=== PATIENT | male | born 1975 | race Caucasian/White ===

== ENCOUNTER 2021-07-01 01:13 | Emergency (ER) | payer OTHER, SELFPAY ==
[2021-07-01 01:27] VITALS: BP 173/100; PULSE 92; RESP 20; TEMP 35.9; O2SAT 97
--- NOTE | 2021-07-01 02:19 | ED_ITS ---
HPI - Skin/Abscess/Foreign Bdy General Chief complaint: Skin/Abscess/Foreign Body Stated complaint: right hand infected finger Time Seen by Provider: 07/01/21 02:09 Source: patient Mode of arrival: ambulatory Limitations: no limitations History of Present Illness complaint: abscess/boil Onset (ago): day(s) (4) Tetanus up to date: yes Location: R hand (index finger) Severity: moderate Quality: aching Pain Consistency: constant Relieving factors: none Exacerbating factors: palpation Context: other (had hangnail worsened tried to squeeze pus out tonight then tried hydrogen peroxide area swelled and the skin sloughed off) Associated symptoms: denies other symptoms Treatments prior to arrival: attempted to drain pus at home Related Data Previous Rx's Medication Instructions Recorded amoxicillin 875 mg-potassium 1 tab PO BID 10 Days #20 tab 07/01/21 clavulanate 125 mg tablet (Augmentin) Allergies Allergy/AdvReac Type Severity Reaction Status Date / Time No Known Allergies Allergy Verified 07/01/21 01:33 Review of Systems Verdana 4l Review of Systems: Verdana 4d Verdana 4d Constitutional : No Fever, No Chills ENT/Mouth : No sore throat, No Rhinorrhea Eyes: No Eye Pain, No Swelling, No Redness Cardiovascular : No Chest Pain, No SOB Respiratory : No Cough, No Sputum Gastrointestinal : No Nausea, No Vomiting, NoNo Diarrhea, No abdominal Pain Genitourinary : No Dysuria, No Hematuria Musculoskeletal : No joint pain, No Myalgias, No Joint Swelling Skin : No Skin Lesions, positive skin rash Neuro : No Weakness, No Numbness, No Headache Psych : No Anxiety, No Depression Heme/Lymph: No Bruising, No Bleeding,No Lymphadenopathy Endocrine : No Polyuria, No Polydipsia PMFSH Past Medical History Attestation statement: The following information was validated with the patient. 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 Oriented X3. No acute distress. Eyes: Pupils equal, round and reactive to light. ENT: Pharynx normal. Neck: Normal inspection. Neck supple. CVS: Pulses normal. Respiratory: No respiratory distress. Abdomen: Soft and non-tender. Skin: Skin warm and dry. Normal skin color. Extremities: No lower extremity edema. R index finger moderate paronychia with contused area noted no extension to distal finger or onto pad distal NV intact no extending cellulitis, full ROM, no tendon sheath pain or swelling Neuro: Oriented X 3. No motor deficit. No sensory deficit. MDM - Skin/Abscess/Foreign Bdy MDM Narrative Medical decision making narrative: 45 yo male no PMH R hand dominant had hangnail R index finger for 5 days attempted to squeeze pus out of it at home did not fernanda it and used hydrogen peroxide on it - finger then became more swollen has not seeked medical care tonight - area is paronychia will attempt I/D it is swollen and contused does not extend proximally onto pad or tendon sheath no extending cellulitis ogden tart on augmentin Procedures Abscess I/D Site: hand (index finger) Side (if applicable): right Local Anesthetic: lidocaine 1% (digital block ) Amount of anesthesia used (mL): 3 Technique: needle aspiration Amount of fluid expressed (mL): 1 Sent for culture/gram staining?: No Irrigation: No Packing used?: none Complications: bleeding (area seemed mostly hematoma and not purulence) Discharge Plan Discharge Clinical Impression: Paronychia of finger Patient Disposition: Home, Self-Care Instructions: Paronychia (ED) Additional Instructions: return to ED for any worsening symptoms or concerns monitor for worsening redness, swelling and no improvement on antibiotics Prescriptions: New amoxicillin-pot clavulanate [Augmentin] 875-125 mg tablet 1 tab PO BID 10 Days Qty: 20 0RF
[2021-07-01] MEDS: Amoxicillin/Potassium Clav 875 MG TABLET PO (03:34)
== END 2021-07-01 03:42 | disposition home or self-care (01) ==
PROVIDERS: Emergency Provider Emergency Medicine
DX: L03.011 Cellulitis of right finger (principal)
CPT/HCPCS: 10060; 99283; 99284

== ENCOUNTER 2021-07-29 14:36 | Outpatient (REF) | payer OTHER, SELFPAY ==
[2021-07-29 15:03] LABS: Binax Internal Control QC Valid; Binax Now Covid-19 Ag Negative (Negative)
== END 2021-07-29 14:37 | disposition home or self-care (01) ==
LOC: HO.HMGCLDS 14:36
PROVIDERS: Visit Provider Physician Assistant Medical
DX: Z13.89 Encounter for screening for other disorder (principal)

== ENCOUNTER 2021-07-29 15:04 | Emergency (ER) | payer OTHER, SELFPAY ==
--- NOTE | ~2021-07-29 | CT_ITS ---
EXAMINATION: CT HEAD WITH/WITHOUT CONTRAST CLINICAL INFORMATION: Left-sided headache for 5 days COMPARISON: None TECHNIQUE: Contiguous axial imaging was performed from the skull base to vertex before and after the administration of 100 mL of Omnipaque [address] examination was performed using dose optimization techniques as appropriate, variously including the following: *Automated exposure control *Adjustment of mA and/or kV according to patient size (this includes techniques or standardized protocols for targeted exams where dose is matched to indication/reason for exam; i.e. extremities or head) *Use of iterative reconstruction technique DLP: 1275 mGy-cm FINDINGS: The brain parenchyma has normal attenuation. The moreno-white matter differentiation is well preserved. No evidence of an acute major vascular territory infarction. No intracranial hemorrhage, extra-axial fluid collection, focal mass effect or midline shift. The ventricles have normal size and configuration; no hydrocephalus. The brainstem and cerebellum have a normal appearance. The cerebellar tonsils are in normal position. The calvarium is intact. The visualized paranasal sinuses, mastoid air cells and middle ear cavities are well aerated. The orbits and globes are unremarkable. The temporomandibular joints are normal. CT/CT head/brain wo/w con IMPRESSION: No acute intracranial pathology.
[2021-07-29 17:00] VITALS: BP 154/108; PULSE 97; RESP 17; TEMP 37.2; O2SAT 93
--- NOTE | 2021-07-29 17:51 | ED_ITS ---
HPI - General Adult General Chief complaint: General Medical Stated complaint: needs blood work Source: patient Mode of arrival: ambulatory Limitations: no limitations History of Present Illness HPI narrative: 46-year-old male presents for severe headache dizziness and low-grade fever. States this is the worst headache of his life, has lasted for 4 days and all meyh-yhz-jcnilyo measures have failed. Was evaluated at urgent care and sent to this facility to rule out meningitis. Onset (ago): day(s) (4) Location: head Severity: severe Severity scale (1-10): 10 Quality: aching and crushing Pain Consistency: constant Relieving factors: none Associated symptoms: fever/chills and headaches Treatments prior to arrival: NSAID Related Data Previous Rx's Medication Instructions Recorded oisudfbcml-dvxhajzaxcmgv-hkllgsuj 1 cap PO Q4-6H PRN #14 cap 07/29/21 50 mg-300 mg-40 mg capsule (Fioricet) Allergies Allergy/AdvReac Type Severity Reaction Status Date / Time No Known Allergies Allergy Verified 07/29/21 13:43 Review of Systems Review of Systems: Constitutional: Positive subjective low-grade Fever, No Chills ENT/Mouth: No Ear Pain, No Hoarseness, No sore throat Eyes: No Eye Pain, No Swelling, No Redness, No Foreign Body Cardiovascular: No Chest Pain, No SOB Respiratory: No Cough, No Dyspnea Gastrointestinal: No Nausea, No Vomiting, No Diarrhea, No abdominal Pain Genitourinary: No Dysuria, No Hematuria Musculoskeletal: No joint pain, No Myalgias, No Joint Swelling Skin: No Skin lacerations, No rash Neuro: No Weakness, No Numbness, No Paresthesias, No Loss of Consciousness, p ositive Dizziness, positive Headache Psych: No Anxiety/Panic, No Depression Heme/Lymph: no easy bruising, no Lymphadenopathy Endocrine: No Polyuria, No Polydipsia Yes all other systems are reviewed and are negative [facility] Past Medical History Attestation statement: The following information was validated with the patient. Source: old records reviewed Medical History No known health problems Social History Social History Patient Tobacco Use Status: Never used Tobacco Use of substances other than those prescribed or required for medical reasons: No Advance Directives: No Advance Directives Information Provided: No Physical Exam ED Vital Signs: Vital Signs - 24 hr 07/29/21 17:00 Temperature 99 F Pulse Rate 97 Respiratory Rate 17 Blood Pressure 154/108 H Pulse Oximetry 93 BMI result Body Mass Index 30.0 Appearance: Alert. Oriented X3. No acute distress. Head: Normal external exam. Normocephalic. Atraumatic. No Antonio signs noted. No raccoon eyes noted Eyes: PERRLA. EOMI. Conjunctiva and sclera normal. Eyelids normal. Funduscopic exam is normal. No papilledema. ENT: TM's Normal. Pharynx normal. Uvula midline. Moist mucous membranes. No trismus noted. No drooling noted. No muffled voice noted. Neck: Normal inspection. Neck supple. No adenopathy. Thyroid Normal. No meningeal signs. No neck mass noted. CVS: Normal heart rate and rhythm. Heart sound normal. No murmurs noted. Pulses equal to all extremities. Respiratory: No respiratory distress. Painless inspiration. Breath sounds normal. No wheezes/rales/rhonchi noted. Chest nontender. No accessory muscle usage noted or decreased air movement noted. Abdomen: Soft and nontender. Bowel sounds normal in all 4 quadrants. No distention noted. No organomegaly noted. No visible injury noted. Back: No CVA tenderness. Full range of motion noted. Skin: Skin warm and dry. Normal skin color. Normal skin turgor. No rashes/lesions/lacerations noted. Extremities: No lower extremity edema. Extremities exhibit normal range of motion. Extremities nontender. Gait well-balanced well coordinated. Neuro: cranial nerves 2-12 intact, no focal neural deficits, strength 5/5 to all extremities, No motor deficit. No sensory deficit. Negative Romberg. Gait well-balanced well coordinated Course Course Course Narrative: 46-year-old male presents with 4 days of the worst headache of his life unrelieved by vtte-ndq-aepajgc medications. Was evaluated at urgent care and referred to the emergency department for evaluation of suspected meningitis. Lab values are within normal limits. Physical exam is normal. No nuchal rigidity, no vertebral tenderness or step-offs. No axial loading tenderness. Gait is well balanced well coordinated. Highly unlikely that this is meningitis based on lab values and physical exam. CTA of head is pending. 20:13 CT scan of head with and without contrast is negative for acute findings acquiring emergent intervention. Patient no longer has a headache after medication regimen. Most likely new onset of migraines verses little to no likelihood of meningitis at this time. Will have patient follow-up with primary care physician and I will provide a number for Neurology should he choose see Neurology prior to primary care. Patient verbalized understanding of and agrees to plan of care discharge home. Verbalized understanding of signs and symptoms indicating need for emergent intervention Medical Decision Making Differential Diagnosis Differential Diagnosis: CVA, tumor, migraine, viral syndrome Medical Records Medical records reviewed: Yes I reviewed the patient's medical records. Lab Data Lab results reviewed: Yes I reviewed the patient's lab results. Result diagrams: 07/29/21 18:35 07/29/21 18:36 Labs: Lab Results 07/29/21 07/29/21 07/29/21 Range/Units 18:35 18:35 18:35 WBC 10.5 (4.8-10.8) X10*3/uL RBC 5.30 (4.60-5.80) X10*6/uL Hgb 14.9 (14.0-18.0) g/dl Hct 44.2 (42.0-52.0) % MCV 83.4 (80.0-98.0) fL MCH 28.1 (27.0-33.0) pg MCHC 33.7 (31.0-36.0) g/dl RDW 13.3 (11.0-16.0) % Plt Count 203 (160-400) X10*3/uL MPV 9.5 (9.4-12.4) fL Immature Gran % (Auto) 0.3 (0.0-0.4) % Neut % (Auto) 71.5 (45-73) % Lymph % (Auto) 22.0 (20-40) % Walker % (Auto) 5.2 (2-11) % Eos % (Auto) 0.6 (0-4) % Baso % (Auto) 0.4 (0-2) % Lymph # (Auto) 2.3 (1.2-4.9) X10*3/uL Walker # (Auto) 0.6 (0.1-1.2) X10*3/uL Eos # (Auto) 0.1 (0.0-0.4) X10*3/uL Baso # (Auto) 0.0 (0.0-0.2) X10*3/uL Abs Immat Gran (auto) 0.03 (0.00-0.03) X10*3/uL Absolute Neuts (auto) 7.5 (2.0-8.3) x10*3/uL Absolute Nucleated RBC 0.000 (0.0-0.012) X10*3/uL Nucleated RBC % (auto) 0.0 (0.0-0.2) /100WBC ESR (0-15) MM/HR PT 12.9 (9.9-13.0) SEC INR 1.1 (0.9-1.1) APTT (24.1-38.0) SEC Sodium (135-145) mmol/L Potassium (3.3-5.1) mmol/L Chloride (96-108) mmol/L Carbon Dioxide (22-29) mmol/L Anion Gap (12-20) BUN (9-16) mg/dL Creatinine (0.5-1.4) mg/dL Estim Creat Clear Calc Estimated GFR Random Glucose (60-115) mg/dL Calcium (8.4-10.2) mg/dL Total Bilirubin (0.0-1.0) mg/dL Direct Bilirubin (0.0-0.5) mg/dL AST (5-37) U/L ALT (0-40) U/L Alkaline Phosphatase (39-117) U/L Troponin I High Sens < 3.5 (<3.5-35.0) ng/L C-Reactive Protein (< or = 0.50) mg/dL Total Protein (6.5-8.0) g/dL Albumin (3.5-5.0) g/dL Lipase (8-78) U/L 07/29/21 07/29/21 07/29/21 Range/Units 18:35 18:36 18:36 WBC (4.8-10.8) X10*3/uL RBC (4.60-5.80) X10*6/uL Hgb (14.0-18.0) g/dl Hct (42.0-52.0) % MCV (80.0-98.0) fL MCH (27.0-33.0) pg MCHC (31.0-36.0) g/dl RDW (11.0-16.0) % Plt Count (160-400) X10*3/uL MPV (9.4-12.4) fL Immature Gran % (Auto) (0.0-0.4) % Neut % (Auto) (45-73) % Lymph % (Auto) (20-40) % Walker % (Auto) (2-11) % Eos % (Auto) (0-4) % Baso % (Auto) (0-2) % Lymph # (Auto) (1.2-4.9) X10*3/uL Walker # (Auto) (0.1-1.2) X10*3/uL Eos # (Auto) (0.0-0.4) X10*3/uL Baso # (Auto) (0.0-0.2) X10*3/uL Abs Immat Gran (auto) (0.00-0.03) X10*3/uL Absolute Neuts (auto) (2.0-8.3) x10*3/uL Absolute Nucleated RBC (0.0-0.012) X10*3/uL Nucleated RBC % (auto) (0.0-0.2) /100WBC ESR 10 (0-15) MM/HR PT (9.9-13.0) SEC INR (0.9-1.1) APTT 30.9 (24.1-38.0) SEC Sodium 137 (135-145) mmol/L Potassium 3.8 (3.3-5.1) mmol/L Chloride 103 (96-108) mmol/L Carbon Dioxide 26 (22-29) mmol/L Anion Gap 12 (12-20) BUN 14 (9-16) mg/dL Creatinine 0.96 (0.5-1.4) mg/dL Estim Creat Clear Calc 99.1 Estimated GFR > 60 Random Glucose 116 H (60-115) mg/dL Calcium 9.4 (8.4-10.2) mg/dL Total Bilirubin 1.1 H (0.0-1.0) mg/dL Direct Bilirubin 0.3 (0.0-0.5) mg/dL AST 18 (5-37) U/L ALT 17 (0-40) U/L Alkaline Phosphatase 44 (39-117) U/L Troponin I High Sens (<3.5-35.0) ng/L C-Reactive Protein 0.07 (< or = 0.50) mg/dL Total Protein 7.6 (6.5-8.0) g/dL Albumin 4.4 (3.5-5.0) g/dL Lipase 55 (8-78) U/L Imaging Data Head CT: Attestation: I personally reviewed and interpreted this imaging study as follows: Radiologist's impression: EXAMINATION: CT HEAD WITH/WITHOUT CONTRAST CLINICAL INFORMATION: Left-sided headache for 5 days? COMPARISON: None? ? TECHNIQUE: Contiguous axial imaging was performed from the skull base to vertex before and after the administration of 100 mL of Omnipaque [address] examination was performed using dose optimization techniques as appropriate, variously including the following: *Automated exposure control *Adjustment of mA and/or kV according to patient size (this includes techniques or standardized protocols for targeted exams where dose is matched to indication/reason for exam; i.e. extremities or head) *Use of iterative reconstruction technique DLP: 1275 mGy-cm FINDINGS: The brain parenchyma has normal attenuation. The moreno-white matter differentiation is well preserved. No evidence of an acute major vascular territory infarction. No intracranial hemorrhage, extra-axial fluid collection, focal mass effect or midline shift. The ventricles have normal size and configuration; no hydrocephalus. The brainstem and cerebellum have a normal appearance. The cerebellar tonsils are in normal position. The calvarium is intact. The visualized paranasal sinuses, mastoid air cells and middle ear cavities are well aerated. The orbits and globes are unremarkable. The temporomandibular joints are normal. CT/CT head/brain wo/w con IMPRESSION: No acute intracranial pathology.? ? ECG Data Attestation: I personally reviewed and interpreted this ECG as follows: Prior ECG tracings: not available for review Interpretation: Vent. rate 90 BPM NE interval 136 ms QRS duration 82 ms QT/QTc 336/411 ms P-R-T axes 37 -17 -10 Normal sinus rhythm Normal ECG No previous ECGs available 29-JUL-2021 18:07:26 Discharge Plan Discharge Clinical Impression: Headache, Migraine Patient Disposition: Home, Self-Care Instructions: Migraine Headache (ED) Additional Instructions: You were evaluated for new onset of migraine headaches. CT angio of the head is negative for acute findings requiring emergent intervention. Your lab values are all within normal limits. There is no likelihood of meningitis at this time. Please follow-up with primary care physician and/or Neurology for further workup for new onset of migraines. I prescribed Fioricet for you. Please use medication as directed. Do not drive or operate machinery while taking this medication. Thank you for choosing this emergency department for evaluation. Please follow-up with primary care physician as needed. Return to the emergency department for any new, concerning, or worsening symptoms. Prescriptions: New lvlqcxgrwz-eillxzfqpdphx-btfl [Fioricet] 50-300-40 mg capsule 1 cap PO Q4-6H PRN (Reason: migraine headache) Qty: 14 0RF Rx Instructions: May substitute for similar medication covered under his insurance plan Referrals: Floyd Lacey MD [Physician] - 2 days (New onset of migraines)
--- NOTE | 2021-07-29 17:57 | ECG_ITS ---
Test Reason : HYPERTENSION Blood Pressure : / mmHG Vent. Rate : 090 BPM Atrial Rate : 090 BPM P-R Int : 136 ms QRS Dur : 082 ms QT Int : 336 ms P-R-T Axes : 037 -17 -10 degrees QTc Int : 411 ms Normal sinus rhythm Normal ECG No previous ECGs available Referred By: Magali Damico Electronically Signed By:CLINTON RAAY
--- NOTE | 2021-07-29 18:38 | PC.NURSE ---
pt alert and oriented, skin pwd, respirations even and unlabored, pt reports having a headache/all over his head/no vision disturbance/vomited yesterday/feels lightheaded/and states his balance is off pain at 8/10 all nuero intact at this time
[2021-07-29 18:40] LABS: MANUAL DIFF FLAG NO
[2021-07-29 18:41] LABS: Basophils Percent Auto 0.4 % (0-2); Eosinophils Absolute Auto 0.1 X10*3/uL (0.0-0.4); Eosinophils Percent Auto 0.6 % (0-4); Hematocrit 44.2 % (42.0-52.0); Hemoglobin 14.9 g/dl (14.0-18.0); Imm Gran Abs Auto 0.03 X10*3/uL (0.00-0.03); Imm Gran Pct Auto 0.3 % (0.0-0.4); Lymphocytes Absolute Auto 2.3 X10*3/uL (1.2-4.9); Mean Corpuscular HGB Conc 33.7 g/dl (31.0-36.0); Mean Corpuscular Hemoglobin 28.1 pg (27.0-33.0); Mean Corpuscular Volume 83.4 fL (80.0-98.0); Mean Platelet Volume 9.5 fL (9.4-12.4); Monocytes Absolute Auto 0.6 X10*3/uL (0.1-1.2); Monocytes Percent Auto 5.2 % (2-11); Neutrophils Absolute Auto 7.5 x10*3/uL (2.0-8.3); Neutrophils Percent Auto 71.5 % (45-73); Platelet Count 203 X10*3/uL (160-400); Red Cell Distribution Width 13.3 % (11.0-16.0); White Blood Count 10.5 X10*3/uL (4.8-10.8)
[2021-07-29 18:46] LABS: INTERNATIONAL NORM RATIO 1.1 (0.9-1.1); Prothrombin Time 12.9 SEC (9.9-13.0)
[2021-07-29 18:49] LABS: Partial Thromboplastin Time 30.9 SEC (24.1-38.0)
[2021-07-29 18:59] LABS: Alanine Aminotransferase 17 U/L (0-40); Albumin Level 4.4 g/dL (3.5-5.0); Alkaline Phosphatase 44 U/L (39-117); Anion Gap 12 (12-20); Aspartate Amino Transferase 18 U/L (5-37); Bilirubin Direct 0.3 mg/dL (0.0-0.5); Bilirubin Total 1.1 mg/dL (0.0-1.0); Blood Urea Nitrogen 14 mg/dL (9-16); C Reactive Protein 0.07 mg/dL (< or = 0.50); Calcium 9.4 mg/dL (8.4-10.2); Carbon Dioxide 26 mmol/L (22-29); Chloride 103 mmol/L (96-108); Creatinine Clr Calc Pharmacy 99.1; Estimated Glomerular Filt Rate > 60; Glucose Random 116 mg/dL (60-115); Lipase 55 U/L (8-78); Potassium 3.8 mmol/L (3.3-5.1); Sodium 137 mmol/L (135-145); Total Protein 7.6 g/dL (6.5-8.0)
[2021-07-29 19:02] LABS: Troponin-I High Sensitivity < 3.5 ng/L (<3.5-35.0)
[2021-07-29] MEDS: iohexoL 350 MG/ML 100 ML INFUS..BTL 85 ML IV (19:05)
[2021-07-29] MEDS: diphenhydrAMINE HCL 50 MG/ML VIAL 25 MG IVPUSH (19:25)
[2021-07-29 19:27] LABS: Erythrocyte Sedimentation Rate 10 MM/HR (0-15)
[2021-07-29] MEDS: Ketorolac Tromethamine 30 MG/ML VIAL IVPUSH (19:27)
[2021-07-29] MEDS: dexAMETHasone sod phosphate 4 MG/ML VIAL 6 MG IVPUSH (19:28)
[2021-07-29] MEDS: SUMAtriptan succinate 6 MG/0.5 ML VIAL SUBCUT (19:29)
== END 2021-07-29 20:30 | disposition home or self-care (01) ==
PROVIDERS: Nurse Practitioner Family; Emergency Provider Internal Medicine; PCP Internal Medicine
DX: G43.909 Migraine, unspecified, not intractable, without status migrainosus (principal); R51.9 Headache, unspecified; R50.9 Fever, unspecified
CPT/HCPCS: 36415; 70470; 80048; 80076; 83690; 84484; 85025; 85610; 85652; 85730; 86140; 93005; 96372; 96374; 96375; 99284; J1100; J1200; J1885; J3030; Q9967

== ENCOUNTER 2021-07-31 11:28 | Emergency (ER) | payer OTHER, SELFPAY ==
[2021-07-31 12:02] VITALS: BP 162/92; PULSE 96; RESP 18; TEMP 36.9; O2SAT 96
[2021-07-31 12:16] LABS: MANUAL DIFF FLAG NO
[2021-07-31 12:18] LABS: Basophils Percent Auto 0.4 % (0-2); Eosinophils Absolute Auto 0.1 X10*3/uL (0.0-0.4); Eosinophils Percent Auto 0.5 % (0-4); Hematocrit 41.4 % (42.0-52.0); Hemoglobin 14.1 g/dl (14.0-18.0); Imm Gran Abs Auto 0.05 X10*3/uL (0.00-0.03); Imm Gran Pct Auto 0.5 % (0.0-0.4); Lymphocytes Absolute Auto 1.6 X10*3/uL (1.2-4.9); Lymphocytes Percent Auto 14.4 % (20-40); Mean Corpuscular HGB Conc 34.1 g/dl (31.0-36.0); Mean Corpuscular Hemoglobin 28.3 pg (27.0-33.0); Mean Platelet Volume 9.6 fL (9.4-12.4); Monocytes Absolute Auto 0.5 X10*3/uL (0.1-1.2); Monocytes Percent Auto 4.6 % (2-11); Neutrophils Absolute Auto 8.6 x10*3/uL (2.0-8.3); Neutrophils Percent Auto 79.6 % (45-73); Platelet Count 218 X10*3/uL (160-400); Red Blood Count 4.99 X10*6/uL (4.60-5.80); Red Cell Distribution Width 13.4 % (11.0-16.0); White Blood Count 10.8 X10*3/uL (4.8-10.8)
[2021-07-31 12:35] LABS: Anion Gap 12 (12-20); Blood Urea Nitrogen 15 mg/dL (9-16); Calcium 8.8 mg/dL (8.4-10.2); Carbon Dioxide 24 mmol/L (22-29); Chloride 101 mmol/L (96-108); Creatinine Clr Calc Pharmacy 108.1; Estimated Glomerular Filt Rate > 60; Glucose Random 123 mg/dL (60-115); Potassium 3.6 mmol/L (3.3-5.1); Sodium 133 mmol/L (135-145)
--- NOTE | 2021-07-31 14:21 | ED.GENADULT ---
HPI - General Adult General Chief complaint: General Medical Stated complaint: severe head pain Time Seen by Provider: 07/31/21 14:21 Source: patient and family (mother) Mode of arrival: ambulatory Limitations: no limitations History of Present Illness HPI narrative: Patient is a 46 year old male presenting to the emergency department today with a headache. Patient states that he was seen here 2 days ago and had a negative work up, was given medications, and felt much better. Patient denies any dizziness, lightheadedness, abdominal pain, nausea, vomiting, fever, chills, blurry vision, double vision, loss of vision, chest pain, difficulty breathing, shortness of breath, back pain, night sweats, pain with urination, increased urinary frequency, increased urinary urgency, blood in his urine or stool, syncope or a near syncopal episode, recent trauma or falls, bowel incontinence, bladder incontinence, bowel retention, bladder retention, or any other complaints at this time. Onset (ago): day(s) Related Data Previous Rx's Medication Instructions Recorded [id number]-lnceivkeipqks-plikyouu 1 cap PO Q4-6H PRN #14 cap 07/29/21 50 mg-300 mg-40 mg capsule (Fioricet) Allergies Allergy/AdvReac Type Severity Reaction Status Date / Time No Known Allergies Allergy Verified 07/29/21 13:43 Review of Systems Constitutional: Constitutional: Reports no additional constitutional complaints, Denies chills, Denies fever(s), Reports headache(s) and Denies night sweats Eyes: Eyes: Reports no additional eye complaints, Denies blurry vision, Denies change in vision, Denies diplopia, Denies eye discharge, Denies loss of vision and Denies eye pain ENT: Denies dizziness and Reports headache(s) Cardiovascular: Cardiovascular: Reports no additional cardiovascular complaints, Denies chest pain, Denies lightheadedness, Denies Loss of Consciousness and Denies dyspnea Respiratory: Respiratory: Reports no additional respiratory complaints and Denies dyspnea Gastrointestinal: Gastrointestinal: Reports no additional gastrointestinal complaints, Denies abdominal pain, Denies melena, Denies hematochezia, Denies change in bowel habits and Denies change in stool character Genitourinary: Genitourinary: Reports no additional male genitourinary complaints, Denies hematuria, Denies oliguria, Denies difficulty urinating, Denies dysuria, Denies urinary frequency, Denies urinary hesitancy, Denies urinary incontinence and Denies urinary urgency Musculoskeletal: Musculoskeletal: Reports no additional musculoskeletal complaints, Denies numbness and Denies tingling Neurologic: Denies dizziness, Reports headache(s), Denies loss of vision, Denies numbness and Denies tingling Psychiatric: Psychiatric: Reports no additional psychiatric complaints Endocrine: Endocrine: Reports no additional endocrine complaints Hematologic/Lymphatic: Hematologic/Lymphatic: Reports no additional hematologic/lymphatic complaints Allergic/Immunologic: Allergic/Immunologic: Reports no additional allergic/immunologic complaints FOR[facility]LY [facility] Past Medical History Attestation statement: The following information was validated with the patient. Source: old records reviewed Medical History No known health problems Social History Social History Patient Tobacco Use Status: Never used Tobacco Advance Directives: No Advance Directives Information Provided: No Physical Exam ED Vital Signs: Vital Signs - 24 hr 07/31/21 12:02 07/31/21 14:29 Temperature 98.4 F 98.3 F Pulse Rate 96 77 Respiratory Rate 18 18 Blood Pressure 162/92 H 137/89 Pulse Oximetry 96 96 BMI result Body Mass Index 30.0 Const General: cooperative, no acute distress, alert and awake Nutritional Appearance: well nourished Orientation/consciousness: patient oriented x3 Limitations: no limitations HENMT Head: Yes normal to inspection and Yes atraumatic Ears: hearing grossly normal bilaterally and external ears normal General nose exam: Normal external nose present, no nasal discharge noted and no epistaxis Face and sinus: Yes normal facial exam, No abrasion and No laceration Mouth: Normal oral and palatal mucosa present, no drooling and no muffled voice Eyes General: appearance normal, both eyes and all related structures Periorbital: periorbital findings normal Eyelids: Yes eyelids normal Conjunctivae: conjunctivae normal Pupils: Equal, round and reactive pupils present EOM: EOMs intact bilaterally Neck Neck: Yes normal visual inspection, Yes full ROM and Yes no lymphadenopathy Chest Chest palpation & inspection: normal inspection of the chest Resp Effort & Inspection: normal respiratory effort and able to speak in complete sentences Auscultation: clear to auscultation bilaterally Cardio Rhythm: regular rhythm Heart sounds: S1 normal heart sound present GI Inspection: Yes normal to inspection Neuro General: patient oriented x3 and moves all extremities Cranial nerves: Yes Equal, round and reactive pupils present Cognition (Neuro): normal cognition Motor exam (neuro): 5/5 motor strength present throughout Sensory Exam: Normal double simultaneous stimulation for sensation Coordination: rfbyav-mj-miui test normal Extrem General: Yes normal to inspection, Yes full ROM and Yes capillary refill normal Psych Appearance: grossly normal Mental Status: mental status grossly normal Affect: normal affect Attitude: cooperative Thought process: Normal thought process present Thought content: Normal thought content present Insight: Good insight present (Psych) Medical Decision Making MDM Narrative Medical decision making narrative: Patient is a 46 year old male presenting to the emergency department today with a headache. Patient's physical exam was unremarkable. Patient's blood work was unremarkable. I explained my physical exam findings as well as all test results to the patient and the patient's mother. I answered all questions asked by the patient and the patient's mother. Patient received Benadryl, Toradol, and imitrex which he stated helped his symptoms significantly. I stressed the importance of the patient taking his medication as prescribed. I stressed the importance of the patient following up with his primary care provider. I stressed the importance of the patient returning to the emergency department immediately if his symptoms were to worsen or if he were to develop any dizziness, shortness of breath, difficulty breathing, chest pain, blurry vision, loss of vision, nausea, vomiting, abdominal pain, fever, chills, back pain, or any other complaints. Patient and the patient's mother verbalized agreement and understanding with this treatment plan and discharge. Differential Diagnosis Differential Diagnosis: Migraine, tension headache, headache Medical Records Medical records reviewed: Yes I reviewed the patient's medical records. Lab Data Lab results reviewed: Yes I reviewed the patient's lab results. Result diagrams: 07/31/21 12:09 07/31/21 12:09 Labs: Lab Results 07/31/21 07/31/21 Range/Units 12:09 12:09 WBC 10.8 (4.8-10.8) X10*3/uL RBC 4.99 (4.60-5.80) X10*6/uL Hgb 14.1 (14.0-18.0) g/dl Hct 41.4 L (42.0-52.0) % MCV 83.0 (80.0-98.0) fL MCH 28.3 (27.0-33.0) pg MCHC 34.1 (31.0-36.0) g/dl RDW 13.4 (11.0-16.0) % Plt Count 218 (160-400) X10*3/uL MPV 9.6 (9.4-12.4) fL Immature Gran % (Auto) 0.5 H (0.0-0.4) % Neut % (Auto) 79.6 H (45-73) % Lymph % (Auto) 14.4 L (20-40) % [place] % (Auto) 4.6 (2-11) % Eos % (Auto) 0.5 (0-4) % Baso % (Auto) 0.4 (0-2) % Lymph # (Auto) 1.6 (1.2-4.9) X10*3/uL [place] # (Auto) 0.5 (0.1-1.2) X10*3/uL Eos # (Auto) 0.1 (0.0-0.4) X10*3/uL Baso # (Auto) 0.0 (0.0-0.2) X10*3/uL Abs Immat Gran (auto) 0.05 H (0.00-0.03) X10*3/uL Absolute Neuts (auto) 8.6 H (2.0-8.3) x10*3/uL Absolute Nucleated RBC 0.000 (0.0-0.012) X10*3/uL Nucleated RBC % (auto) 0.0 (0.0-0.2) /100WBC Sodium 133 L (135-145) mmol/L Potassium 3.6 (3.3-5.1) mmol/L Chloride 101 (96-108) mmol/L Carbon Dioxide 24 (22-29) mmol/L Anion Gap 12 (12-20) BUN 15 (9-16) mg/dL Creatinine 0.88 (0.5-1.4) mg/dL Estim Creat Clear Calc 108.1 Estimated GFR > 60 Random Glucose 123 H (60-115) mg/dL Calcium 8.8 D (8.4-10.2) mg/dL Discharge Plan Discharge Clinical Impression: Headache Patient Disposition: Home, Self-Care Instructions: Acute Headache (ED) Additional Instructions: Follow up with your primary care provider. Return to the emergency department immediately if your symptoms worsen or if you develop any dizziness, shortness of breath, difficulty breathing, chest pain, blurry vision, loss of vision, nausea, vomiting, abdominal pain, fever, chills, back pain, or any other complaints. Prescriptions: No Action eejqtqntwp-plpsqdpzezvvd-qdwv [Fioricet] 50-300-40 mg capsule 1 cap PO Q4-6H PRN (Reason: migraine headache) Qty: 14 0RF Rx Instructions: May substitute for similar medication covered under his insurance plan Print Language: Ukrainian
[2021-07-31 14:29] VITALS: BP 137/89; PULSE 77; RESP 18; TEMP 36.8; O2SAT 96
[2021-07-31] MEDS: Ketorolac Tromethamine 30 MG/ML VIAL IVPUSH (15:32)
[2021-07-31] MEDS: diphenhydrAMINE HCL 50 MG/ML VIAL 25 MG IVPUSH (15:33)
[2021-07-31] MEDS: SUMAtriptan succinate 6 MG/0.5 ML VIAL SUBCUT (15:33)
[2021-07-31] MEDS: 0.9 % Sodium Chloride 1,000 ML 999 ML IVCONT (15:34)
--- NOTE | 2021-07-31 15:58 | PC.NURSE ---
pt with severe head pain 01/10. IV started in left arm without complications #20 gauge. Pain meds given along with Sumatriptan given right upper arm SC. VSS all labs WNL
== END 2021-07-31 17:08 | disposition home or self-care (01) ==
PROVIDERS: Emergency Provider Emergency Medicine; PCP Internal Medicine
DX: R51.9 Headache, unspecified (principal)
CPT/HCPCS: 36415; 80048; 85025; 96361; 96372; 96374; 96375; 99284; J1200; J1885; J3030

== ENCOUNTER 2021-08-01 02:00 | Observation (INO) | payer OTHER, SELFPAY ==
[2021-08-01] VITALS (17 sets, daily range): BP systolic 118–168; BP diastolic 75–101; PULSE 67–91; RESP 12–24; TEMP 36.6–37.8; O2SAT 92–99; BMI 29.7
--- NOTE | 2021-08-01 04:02 | ED_ITS ---
HPI - Headache General Chief Complaint: Headache Stated Complaint: Headache Time Seen by Provider: 08/01/21 03:50 Source: patient Mode of arrival: ambulatory Limitations: no limitations History of Present Illness HPI Narrative: Patient comes to emergency room complaining of headache. Patient was evaluated here for headache on July 29 and . Patient states he was given medication that may take his headache resolved for a few hours, but the headache keeps returning. Patient states that now he has discomfort in his neck, feels somewhat stiff. Patient states that he has been 1 week since the headache sta rted. Patient denies fever chills, seems that earlier in the week he had subjective low-grade fever. Related Data Previous Rx's Medication Instructions Recorded vveoukbkox-jsavliimixsay-wihnltnc 1 cap PO Q4-6H PRN #14 cap 07/29/21 50 mg-300 mg-40 mg capsule (Fioricet) iuqlypvvph-rnwyaeccbhfso-cnlilcyn 1 cap PO Q4-6H PRN #10 cap 07/31/21 50 mg-300 mg-40 mg capsule (Fioricet) Allergies Allergy/AdvReac Type Severity Reaction Status Date / Time No Known Allergies Allergy Verified 08/01/21 02:05 Review of Systems Review of Systems: Constitutional : No Weight loss, subjective low-grade fever, No Chills, No Night Sweats, No Fatigue, No Malaise ENT/Mouth : No Hearing loss, No Ear Pain, No Nasal Congestion, No Sinus Pain, No Hoarseness, No sore throat, No Rhinorrhea, No Swallowing Difficulty Eyes: No Eye Pain, No Swelling, No Redness, No Foreign Body, No Discharge, No Vision Changes Cardiovascular : No Chest Pain, No SOB, No Dyspnea on Exertion, No Orthopnea, No Edema, No Palpitations Respiratory : No Cough, No Sputum, No Wheezing, No Smoke Exposure, No Dyspnea Gastrointestinal : Complaining of Nausea, No Vomiting, No Diarrhea, No Constipation, No abdominal Pain, No Hematochezia, No Melena Genitourinary : no irregular bleeding, No Dysuria, No Urinary Frequency, No Hematuria, No Urinary Incontinence, No Urgency, No Flank Pain, No Urinary Flow Changes, No Hesitancy Musculoskeletal : Complaining of mild posterior neck stiffness, pain, No joint pain, No Myalgias, No Joint Swelling Skin : No Skin Lesions, No rash Neuro : No Weakness, No Numbness, No Paresthesias, No Loss of Consciousness, No Dizziness, complaining of severe intermittent Headache Psych : No Anxiety/Panic, No Depression, No SI/HI/AH/VH, No Social Issues, Heme/Lymph: No Bruising, No Bleeding,No Lymphadenopathy Endocrine : No Polyuria, No Polydipsia, No Temperature Intolerance PMF Past Medical History Medical History No known health problems Social History Social History Alcohol intake: never Patient Tobacco Use Status: Never used Tobacco Use of substances other than those prescribed or required for medical reasons: No Advance Directives: No Physical Exam Vital Signs: Vital Signs: Last Vital Signs Temp 97.8 F 08/01/21 06:28 Pulse 71 08/01/21 06:28 Resp 16 08/01/21 06:28 BP 118/76 08/01/21 06:28 Pulse Ox 96 08/01/21 06:28 BMI result Body Mass Index 29.7 Const: Other: Appearance: Alert. Oriented X3. No acute distress. Eyes: Pupils equal, round and reactive to light. ENT: Pharynx normal. Neck: Patient has normal range of motion of the neck, on flexion and extension, however patient states that it feels fairly stiff moving his neck CVS: Normal heart rate and rhythm. Pulses normal. Normal S1 and S2 Respiratory: No respiratory distress. Breath sounds normal. No Wheezing. No rales Abdomen: Soft and nontender. No rigidity. No distention Skin: Skin warm and dry. Normal skin color. Normal skin turgor. Extremities: No lower extremity edema. No lower extremity edema. No Lacerations. No Rash Neuro: Oriented X 3. No motor deficit. No sensory deficit. Moving all extermi ties. No slurred speech. Course Course Course Narrative: Patient being given IV fluids, IV Toradol, Reglan. I discussed with the patient that given that his headache has been present for 6 days, today we will perform a lumbar puncture to rule out viral meningitis. Patient agrees with plan Patient tolerated well the lumbar puncture, colorless CSF obtained At this time, bacterial meningitis is not suspected. Patient is being treated empirically with ceftriaxone and vancomycin. CSF Labs are pending Patient has been having headache for 6 days now, empiric treatment for migraine headaches is not working. Patient now has neck stiffness. Viral meningitis is possibility. We will go ahead and admit the patient. I discussed the patient with Dr. Bermudez. 06:55 CSF results show an elevated troponin and white blood cell count, viral meningitis is suspected, IV acyclovir has been started. MDM - Headache Lab Data Result diagrams: 08/01/21 05:36 08/01/21 05:36 Labs: Lab Results 08/01/21 08/01/21 08/01/21 Range/Units 05:23 05:23 05:36 WBC 10.3 (4.8-10.8) X10*3/uL RBC 4.86 (4.60-5.80) X10*6/uL Hgb 13.8 L (14.0-18.0) g/dl Hct 40.9 L (42.0-52.0) % MCV 84.2 (80.0-98.0) fL MCH 28.4 (27.0-33.0) pg MCHC 33.7 (31.0-36.0) g/dl RDW 13.5 (11.0-16.0) % Plt Count 215 (160-400) X10*3/uL MPV 9.7 (9.4-12.4) fL Immature Gran % (Auto) 0.3 (0.0-0.4) % Neut % (Auto) 72.5 (45-73) % Lymph % (Auto) 20.3 (20-40) % [place] % (Auto) 5.7 (2-11) % Eos % (Auto) 0.8 (0-4) % Baso % (Auto) 0.4 (0-2) % Lymph # (Auto) 2.1 (1.2-4.9) X10*3/uL [place] # (Auto) 0.6 (0.1-1.2) X10*3/uL Eos # (Auto) 0.1 (0.0-0.4) X10*3/uL Baso # (Auto) 0.0 (0.0-0.2) X10*3/uL Abs Immat Gran (auto) 0.03 (0.00-0.03) X10*3/uL Absolute Neuts (auto) 7.5 (2.0-8.3) x10*3/uL Absolute Nucleated RBC 0.000 (0.0-0.012) X10*3/uL Nucleated RBC % (auto) 0.0 (0.0-0.2) /100WBC PT (9.9-13.0) SEC INR (0.9-1.1) Sodium (135-145) mmol/L Potassium (3.3-5.1) mmol/L Chloride (96-108) mmol/L Carbon Dioxide (22-29) mmol/L Anion Gap (12-20) BUN (9-16) mg/dL Creatinine (0.5-1.4) mg/dL Estim Creat Clear Calc Estimated GFR Random Glucose (60-115) mg/dL Lactic Acid (0.5-2.0) mmol/L Calcium (8.4-10.2) mg/dL C-Reactive Protein (< or = 0.50) mg/dL CSF Tube Number 2 4 CSF Volume 0.9 ML CSF Appearance CLEAR CSF Color COLORLESS CSF WBC 162 H* MM*3 CSF RBC 4 MM*3 CSF Neutrophils 2 % CSF Lymphocytes 95 % CSF Monocytes % 2 % CSF Other Cells % 1 % CSF Appearance (b) Clear, Colorless CSF Glucose 57 mg/dL CSF Total Protein 148.7 H (15-45) mg/dL COVID-19 ([facility]) (Negative) COVID-19 Clin Com 08/01/21 08/01/21 08/01/21 Range/Units 05:36 05:36 05:36 WBC (4.8-10.8) X10*3/uL RBC (4.60-5.80) X10*6/uL Hgb (14.0-18.0) g/dl Hct (42.0-52.0) % MCV (80.0-98.0) fL MCH (27.0-33.0) pg MCHC (31.0-36.0) g/dl RDW (11.0-16.0) % Plt Count (160-400) X10*3/uL MPV (9.4-12.4) fL Immature Gran % (Auto) (0.0-0.4) % Neut % (Auto) (45-73) % Lymph % (Auto) (20-40) % [place] % (Auto) (2-11) % Eos % (Auto) (0-4) % Baso % (Auto) (0-2) % Lymph # (Auto) (1.2-4.9) X10*3/uL [place] # (Auto) (0.1-1.2) X10*3/uL Eos # (Auto) (0.0-0.4) X10*3/uL Baso # (Auto) (0.0-0.2) X10*3/uL Abs Immat Gran (auto) (0.00-0.03) X10*3/uL Absolute Neuts (auto) (2.0-8.3) x10*3/uL Absolute Nucleated RBC (0.0-0.012) X10*3/uL Nucleated RBC % (auto) (0.0-0.2) /100WBC PT 12.5 (9.9-13.0) SEC INR 1.1 (0.9-1.1) Sodium 138 (135-145) mmol/L Potassium 3.7 (3.3-5.1) mmol/L Chloride 107 (96-108) mmol/L Carbon Dioxide 23 (22-29) mmol/L Anion Gap 12 (12-20) BUN 11 (9-16) mg/dL Creatinine 0.83 (0.5-1.4) mg/dL Estim Creat Clear Calc 114.1 Estimated GFR > 60 Random Glucose 115 (60-115) mg/dL Lactic Acid 0.9 (0.5-2.0) mmol/L Calcium 8.7 (8.4-10.2) mg/dL C-Reactive Protein 0.10 (< or = 0.50) mg/dL CSF Tube Number CSF Volume ML CSF Appearance CSF Color CSF WBC MM*3 CSF RBC MM*3 CSF Neutrophils % CSF Lymphocytes % CSF Monocytes % % CSF Other Cells % % CSF Appearance (b) CSF Glucose mg/dL CSF Total Protein (15-45) mg/dL COVID-19 ([facility]) (Negative) COVID-19 Clin Com 08/01/21 Range/Units 05:36 WBC (4.8-10.8) X10*3/uL RBC (4.60-5.80) X10*6/uL Hgb (14.0-18.0) g/dl Hct (42.0-52.0) % MCV (80.0-98.0) fL MCH (27.0-33.0) pg MCHC (31.0-36.0) g/dl RDW (11.0-16.0) % Plt Count (160-400) X10*3/uL MPV (9.4-12.4) fL Immature Gran % (Auto) (0.0-0.4) % Neut % (Auto) (45-73) % Lymph % (Auto) (20-40) % [place] % (Auto) (2-11) % Eos % (Auto) (0-4) % Baso % (Auto) (0-2) % Lymph # (Auto) (1.2-4.9) X10*3/uL [place] # (Auto) (0.1-1.2) X10*3/uL Eos # (Auto) (0.0-0.4) X10*3/uL Baso # (Auto) (0.0-0.2) X10*3/uL Abs Immat Gran (auto) (0.00-0.03) X10*3/uL Absolute Neuts (auto) (2.0-8.3) x10*3/uL Absolute Nucleated RBC (0.0-0.012) X10*3/uL Nucleated RBC % (auto) (0.0-0.2) /100WBC PT (9.9-13.0) SEC INR (0.9-1.1) Sodium (135-145) mmol/L Potassium (3.3-5.1) mmol/L Chloride (96-108) mmol/L Carbon Dioxide (22-29) mmol/L Anion Gap (12-20) BUN (9-16) mg/dL Creatinine (0.5-1.4) mg/dL Estim Creat Clear Calc Estimated GFR Random Glucose (60-115) mg/dL Lactic Acid (0.5-2.0) mmol/L Calcium (8.4-10.2) mg/dL C-Reactive Protein (< or = 0.50) mg/dL CSF Tube Number CSF Volume ML CSF Appearance CSF Color CSF WBC MM*3 CSF RBC MM*3 CSF Neutrophils % CSF Lymphocytes % CSF Monocytes % % CSF Other Cells % % CSF Appearance (b) CSF Glucose mg/dL CSF Total Protein (15-45) mg/dL COVID-19 ([facility]) Negative (Negative) COVID-19 Clin Com See Note Procedures Lumbar Puncture Time Out Performed: Yes Patient Position: upright Skin Prep: Povidone-Iodine 1% Local Anesthetic: lidocaine 1% Amount of anesthesia used (mL): 4 Spinal Needle Gauge: 22G Interspace Used: L4-L5 Fluid Initially Obtained: clear Complications: none Discharge Plan Discharge Clinical Impression: Meningitis, viral Patient Disposition: Admitted As Inpatient
[2021-08-01] MEDS: Ketorolac Tromethamine 30 MG/ML VIAL IVPUSH (04:31)
[2021-08-01] MEDS: Metoclopramide HCl 10 MG/2 ML VIAL IVPUSH (04:31)
[2021-08-01] MEDS: 0.9 % Sodium Chloride 1,000 ML 999 ML IVCONT (04:31)
[2021-08-01] MEDS: diazePAM 5 MG TABLET PO (04:31)
[2021-08-01] MEDS: diphenhydrAMINE HCL 50 MG/ML VIAL IVPUSH (04:31)
[2021-08-01 05:31] LABS: CSF Appearance Clear, Colorless; CSF Tube # 2
[2021-08-01] MEDS: HYDROmorphone HCl 1 MG/ML SYRINGE IVPUSH ×4 (05:38→23:07)
[2021-08-01] MEDS: ondansetron HCL 4 MG/2 ML VIAL IVPUSH (05:38)
[2021-08-01 05:50] LABS: Basophils Percent Auto 0.4 % (0-2); Eosinophils Absolute Auto 0.1 X10*3/uL (0.0-0.4); Eosinophils Percent Auto 0.8 % (0-4); Hematocrit 40.9 % (42.0-52.0); Hemoglobin 13.8 g/dl (14.0-18.0); Imm Gran Abs Auto 0.03 X10*3/uL (0.00-0.03); Imm Gran Pct Auto 0.3 % (0.0-0.4); Lymphocytes Absolute Auto 2.1 X10*3/uL (1.2-4.9); Lymphocytes Percent Auto 20.3 % (20-40); MANUAL DIFF FLAG NO; Mean Corpuscular HGB Conc 33.7 g/dl (31.0-36.0); Mean Corpuscular Hemoglobin 28.4 pg (27.0-33.0); Mean Corpuscular Volume 84.2 fL (80.0-98.0); Mean Platelet Volume 9.7 fL (9.4-12.4); Monocytes Absolute Auto 0.6 X10*3/uL (0.1-1.2); Monocytes Percent Auto 5.7 % (2-11); Neutrophils Absolute Auto 7.5 x10*3/uL (2.0-8.3); Neutrophils Percent Auto 72.5 % (45-73); Platelet Count 215 X10*3/uL (160-400); Red Blood Count 4.86 X10*6/uL (4.60-5.80); Red Cell Distribution Width 13.5 % (11.0-16.0); White Blood Count 10.3 X10*3/uL (4.8-10.8)
[2021-08-01 06:01] LABS: Lactic Acid 0.9 mmol/L (0.5-2.0)
[2021-08-01 06:04] LABS: Anion Gap 12 (12-20); Blood Urea Nitrogen 11 mg/dL (9-16); Calcium 8.7 mg/dL (8.4-10.2); Carbon Dioxide 23 mmol/L (22-29); Chloride 107 mmol/L (96-108); Creatinine Clr Calc Pharmacy 114.1; Estimated Glomerular Filt Rate > 60; Glucose Random 115 mg/dL (60-115); Potassium 3.7 mmol/L (3.3-5.1); Sodium 138 mmol/L (135-145)
[2021-08-01 06:05] LABS: Glucose CSF 57 mg/dL; Total Protein CSF 148.7 mg/dL (15-45)
[2021-08-01 06:06] LABS: INTERNATIONAL NORM RATIO 1.1 (0.9-1.1); Prothrombin Time 12.5 SEC (9.9-13.0)
[2021-08-01 06:07] LABS: COVID-19 Test Negative (Negative)
[2021-08-01] MEDS: cefTRIAXone sodium 2 GM in 0.9 % Sodium Chloride 50 ML IV (06:12)
[2021-08-01 06:13] LABS: Appearance CSF CLEAR; CSF Tube # 4
[2021-08-01 06:14] LABS: CSF Volume 0.9 ML; Color CSF COLORLESS
[2021-08-01 06:15] LABS: Red Blood Cell CSF 4 MM*3; White Blood Cell CSF 162 MM*3
[2021-08-01 06:17] LABS: Lymphocytes CSF 95 %; Neutrophils CSF 2 %
[2021-08-01 06:19] LABS: CSF Monos 2 %; CSF Other Cells % 1 %
--- NOTE | 2021-08-01 06:26 | PC.NURSE ---
pt bandage to the mid lower back from lumbar puncture is dry and intact, old staining on the bandage. pt resting comfortably, pending admit. vitals stable. headache slowly lessening per pt . pt is alert oriented, to person place and time. and situation.
[2021-08-01] MEDS: vancomycin HCL 1,000 MG in 0.9 % Sodium Chloride 250 ML 270 MG IV (06:30)
[2021-08-01 06:56] LABS: Erythrocyte Sedimentation Rate 8 MM/HR (0-15)
[2021-08-01 07:19] LABS: Cryptococcus neoformans/gattii Not Detected (Not Detect.); Enterovirus Not Detected (Not Detect.); Escherichia coli K1 Not Detected (Not Detect.); Haemophilus influenzae Not Detected (Not Detect.); Herpes simplex virus 1 Not Detected (Not Detect.); Herpes simplex virus 2 Not Detected (Not Detect.); Human herpesvirus 6 Not Detected (Not Detect.); Human parechovirus Not Detected (Not Detect.); Listeria monocytogenes Not Detected (Not Detect.); Neisseria meningitidis Not Detected (Not Detect.); Streptococcus agalactiae Not Detected (Not Detect.); Streptococcus pneumoniae Not Detected (Not Detect.)
[2021-08-01 07:20] LABS: Varicella zoster virus Not Detected (Not Detect.)
[2021-08-01 07:23] LABS: HIV AB/AG Nonreactive (Nonreactive); HIV Num 1 0.31 S/CO (0.00-0.99)
[2021-08-01 08:02] LABS: Amphetamine Screen Urine Not Detected (Not Detect); Barbiturates, Urine POSITIVE (Not Detect); Benzodiazepines Screen Urine POSITIVE (Not Detect); Cannabinoid Screen Urine Not Detected (Not Detect); Cocaine Screen Urine Not Detected (Not Detect); Fentanyl, urine Not Detected (Not Detect); Opiate Screen Urine Not Detected (Not Detect); Phencyclidine Screen Urine Not Detected (Not Detect)
--- NOTE | 2021-08-01 08:03 | PC.NURSE ---
pt is a/o x 3 no sob/joshua noted hob up eating breakfast. pt amb (I) gait steady earlier to bathroom and btb. pt is aware of plan of care.
--- NOTE | 2021-08-01 08:44 | P.HPHOSP_ITS ---
History of Present Illness Date of Service: 08/01/21 Chief Complaint: Headache 46 year old with no medical issues who has been having headache for about a week now and has been seen in the ED on , then the 28 and discharge with symptoms treatment. He comes back today saying t hat he has been having headache, ph otophobia and neck pain. There is no fever, normal WBC. CSF study shows 162 WBC and CSF protein is 148 other than that finding is unremarkable. Meningo/Encephalitis panel is negative--including viral pariticles Review of Systems Review of Systems: Gen: no fever Resp: no sob, no cough CV: no chest, no PLAZA, no leg edema GI: No n/v, no abd pain Neuro: No confusion, +headache Yes all other systems are reviewed and are negative [facility] Medical History No known health problems Social History Household Members: None Housing: House Do you presently have visiting nurse or other home services: No Alcohol intake: never Patient Tobacco Use Status: Never used Tobacco Use of substances other than those prescribed or required for medical reasons: No Currently Displaying Signs/Symptoms of Drug Intoxication Withdrawal: No Have you been hit, kicked, punched, or otherwise hurt by someone within the past year? If so, by whom?: No Do you feel safe in your current relationship?: Yes Is there a partner from a previous relationship who is making you feel unsafe now?: No Are you made to feel afraid or neglected: No Advance Directives: No Do you have thoughts of harming others: None Do you have a plan to hurt others: No Plan Recently lost weight without trying: No Nutrition Risks: No Nutritional Risk service: No Current occupational status: employed Meds Allergies Allergy/AdvReac Type Severity Reaction Status Date / Time No Known Allergies Allergy Verified 08/01/21 02:05 Active Medications: Current Medications Acyclovir Sodium 660 mg/ (Sodium Chloride) 263.2 mls @ 263.2 mls/hr IV ONCE ONE Stop: 08/01/21 08:59 Last Admin: 08/01/21 08:20 Dose: 263.2 mls/hr Documented by: Home Medications Medication Instructions Recorded Confirmed Last Taken Type acetaminophen 325 mg tablet 650 mg PO Q6H PRN 08/01/21 08/01/21 Unknown History kcyxpwj-qttfftlotkqjy-evkzskhj 250 1 tab PO Q6H PRN 08/01/21 08/01/21 Unknown History mg-250 mg-65 mg tablet (Excedrin Migraine) multivitamin 1 tab PO DAILY 08/01/21 08/01/21 Unknown History Physical Exam Vital Signs and Narrative: Vital Signs: Last Vital Signs Temp 98.1 F 08/01/21 06:55 Pulse 67 08/01/21 06:55 Resp 17 08/01/21 06:55 BP 129/75 08/01/21 06:55 Pulse Ox 95 08/01/21 06:55 BMI result Body Mass Index 29.7 Const: Other: Constitutional: Alert, in no distress Mental Status: Oriented to person, place and time. Eyes: Pupils are equal, round and reactive to light. Ear, Nose and Throat: Oropharynx clear, mucous membranes moist. Trachea midline. Respiratory: Clear to auscultation. No wheezing, rales or rhonchi. Cardiovascular: S1 S2 regular. No murmurs, rubs or gallops. Gastrointestinal: Abdomen soft, non-tender, non-distended. Normal bowel sounds.? Neurologic: Cranial nerves II-XII grossly intact. No focal neurological deficits. Moves all extremities spontaneously.? Skin: No rashes or lesions.? Musculoskeletal: No cyanosis or clubbing. Psychiatric: Normal mood and affect? Results Labs CBC and Chem 7: 08/01/21 05:36 08/01/21 05:36 Labs: Laboratory Results - last 24 hr 08/01/21 08/01/21 08/01/21 05:23 05:23 05:23 MCV MCH MCHC RDW Plt Count MPV Immature Gran % (Auto) Neut % (Auto) Lymph % (Auto) Caldwell % (Auto) Eos % (Auto) Baso % (Auto) Lymph # (Auto) Caldwell # (Auto) Eos # (Auto) Baso # (Auto) Abs Immat Gran (auto) Absolute Neuts (auto) Absolute Nucleated RBC Nucleated RBC % (auto) ESR PT INR Anion Gap Estim Creat Clear Calc Estimated GFR Random Glucose Lactic Acid Calcium C-Reactive Protein CSF Tube Number 2 4 CSF Volume 0.9 CSF Appearance CLEAR CSF Color COLORLESS CSF WBC 162 H* CSF RBC 4 CSF Neutrophils 2 CSF Lymphocytes 95 CSF Monocytes % 2 CSF Other Cells % 1 CSF Appearance (b) Clear, Colorless CSF Glucose 57 CSF Total Protein 148.7 H CSF C.neoform/gat PCR Not Detected CSF CMV DNA (PCR) Not Detected CSF Enterovirus (PCR) Not Detected CSF E. coli K1 (PCR) Not Detected CSF H. influenzae (PCR) Not Detected CSF HSV I (PCR) Not Detected CSF HSV II (PCR) Not Detected CSF L.monocytogenes PCR Not Detected CSF N. meningitidis PCR Not Detected CSF Parechovirus (PCR) Not Detected CSF S. agalactiae (PCR) Not Detected CSF S. pneumoniae (PCR) Not Detected CSF VZV (PCR) Not Detected Urine Opiates Screen Urine Fentanyl Screen Ur Barbiturates Screen Ur Phencyclidine Scrn Ur Amphetamines Screen U Benzodiazepines Scrn Urine Cocaine Screen U Marijuana (THC) Screen COVID-19 (KANDY) COVID-19 Clin Com HIV 1&2 Ab/P24 Ag 4thGn HHV-6 (PCR) Not Detected 08/01/21 08/01/21 08/01/21 05:36 05:36 05:36 MCV 84.2 MCH 28.4 MCHC 33.7 RDW 13.5 Plt Count 215 MPV 9.7 Immature Gran % (Auto) 0.3 Neut % (Auto) 72.5 Lymph % (Auto) 20.3 Caldwell % (Auto) 5.7 Eos % (Auto) 0.8 Baso % (Auto) 0.4 Lymph # (Auto) 2.1 Caldwell # (Auto) 0.6 Eos # (Auto) 0.1 Baso # (Auto) 0.0 Abs Immat Gran (auto) 0.03 Absolute Neuts (auto) 7.5 Absolute Nucleated RBC 0.000 Nucleated RBC % (auto) 0.0 ESR 8 PT INR Anion Gap 12 Estim Creat Clear Calc 114.1 Estimated GFR > 60 Random Glucose 115 Lactic Acid Calcium 8.7 C-Reactive Protein 0.10 CSF Tube Number CSF Volume CSF Appearance CSF Color CSF WBC CSF RBC CSF Neutrophils CSF Lymphocytes CSF Monocytes % CSF Other Cells % CSF Appearance (b) CSF Glucose CSF Total Protein CSF C.neoform/gat PCR CSF CMV DNA (PCR) CSF Enterovirus (PCR) CSF E. coli K1 (PCR) CSF H. influenzae (PCR) CSF HSV I (PCR) CSF HSV II (PCR) CSF L.monocytogenes PCR CSF N. meningitidis PCR CSF Parechovirus (PCR) CSF S. agalactiae (PCR) CSF S. pneumoniae (PCR) CSF VZV (PCR) Urine Opiates Screen Urine Fentanyl Screen Ur Barbiturates Screen Ur Phencyclidine Scrn Ur Amphetamines Screen U Benzodiazepines Scrn Urine Cocaine Screen U Marijuana (THC) Screen COVID-19 (KANDY) COVID-19 Clin Com HIV 1&2 Ab/P24 Ag 4thGn HHV-6 (PCR) 08/01/21 08/01/21 08/01/21 05:36 05:36 05:36 MCV MCH MCHC RDW Plt Count MPV Immature Gran % (Auto) Neut % (Auto) Lymph % (Auto) Caldwell % (Auto) Eos % (Auto) Baso % (Auto) Lymph # (Auto) Caldwell # (Auto) Eos # (Auto) Baso # (Auto) Abs Immat Gran (auto) Absolute Neuts (auto) Absolute Nucleated RBC Nucleated RBC % (auto) ESR PT 12.5 INR 1.1 Anion Gap Estim Creat Clear Calc Estimated GFR Random Glucose Lactic Acid 0.9 Calcium C-Reactive Protein CSF Tube Number CSF Volume CSF Appearance CSF Color CSF WBC CSF RBC CSF Neutrophils CSF Lymphocytes CSF Monocytes % CSF Other Cells % CSF Appearance (b) CSF Glucose CSF Total Protein CSF C.neoform/gat PCR CSF CMV DNA (PCR) CSF Enterovirus (PCR) CSF E. coli K1 (PCR) CSF H. influenzae (PCR) CSF HSV I (PCR) CSF HSV II (PCR) CSF L.monocytogenes PCR CSF N. meningitidis PCR CSF Parechovirus (PCR) CSF S. agalactiae (PCR) CSF S. pneumoniae (PCR) CSF VZV (PCR) Urine Opiates Screen Urine Fentanyl Screen Ur Barbiturates Screen Ur Phencyclidine Scrn Ur Amphetamines Screen U Benzodiazepines Scrn Urine Cocaine Screen U Marijuana (THC) Screen COVID-19 (KANDY) Negative COVID-19 Clin Com See Note HIV 1&2 Ab/P24 Ag 4thGn HHV-6 (PCR) 08/01/21 08/01/21 05:36 07:36 MCV MCH MCHC RDW Plt Count MPV Immature Gran % (Auto) Neut % (Auto) Lymph % (Auto) Caldwell % (Auto) Eos % (Auto) Baso % (Auto) Lymph # (Auto) Caldwell # (Auto) Eos # (Auto) Baso # (Auto) Abs Immat Gran (auto) Absolute Neuts (auto) Absolute Nucleated RBC Nucleated RBC % (auto) ESR PT INR Anion Gap Estim Creat Clear Calc Estimated GFR Random Glucose Lactic Acid Calcium C-Reactive Protein CSF Tube Number CSF Volume CSF Appearance CSF Color CSF WBC CSF RBC CSF Neutrophils CSF Lymphocytes CSF Monocytes % CSF Other Cells % CSF Appearance (b) CSF Glucose CSF Total Protein CSF C.neoform/gat PCR CSF CMV DNA (PCR) CSF Enterovirus (PCR) CSF E. coli K1 (PCR) CSF H. influenzae (PCR) CSF HSV I (PCR) CSF HSV II (PCR) CSF L.monocytogenes PCR CSF N. meningitidis PCR CSF Parechovirus (PCR) CSF S. agalactiae (PCR) CSF S. pneumoniae (PCR) CSF VZV (PCR) Urine Opiates Screen Not Detected Urine Fentanyl Screen Not Detected Ur Barbiturates Screen POSITIVE H Ur Phencyclidine Scrn Not Detected Ur Amphetamines Screen Not Detected U Benzodiazepines Scrn POSITIVE H Urine Cocaine Screen Not Detected U Marijuana (THC) Screen Not Detected COVID-19 (KANDY) COVID-19 Clin Com HIV 1&2 Ab/P24 Ag 4thGn Nonreactive HHV-6 (PCR) Assessment and Plan (1) Headache: Status: Acute (2) Aseptic meningitis: Status: Acute Plan 46 year old male with headache and possible asceptic meningitis plan: Pain control, review finding with ID, consider Acyclovir Quality Stroke Does the patient have a stroke diagnosis?: No VTE Prior VTE?: No VTE Risk Level:: Medical - low VTE Device Contraindication: Treatment Not Indicated VTE Drug Contraindication: Treatment Not Indicated
[2021-08-01] MEDS: HYDROmorphone HCl 1 MG/ML SYRINGE 0.5 MG IVPUSH ×2 (09:31→12:57)
[2021-08-01] MEDS: oxyCODONE HCl Immed Release 5 MG TABLET PO ×2 (10:07→21:02)
[2021-08-01] MEDS: Acetaminophen 325 MG TABLET 650 MG PO (10:07)
--- NOTE | 2021-08-01 16:01 | W.PM.IDCN ---
History of Present Illness Data of Consult Service Date: 08/01/21 Requesting physician: Terrence Her Primary Care Provider: Luan Blunt MD [facility] Reason for consult: headache and neck stiffness He presents with a day of neck stiffness and right sided head ache. He has no fever or chills. He has LP with WBC and encephalitis/meningitis screen negative. COVID test is negative. Review of Systems Review of Systems: Yes all other systems are reviewed and are negative [facility] Past Medical History Medical History Aseptic meningitis Family History Family History Other No family history of coronary artery disease Family history: reviewed and not pertinent Surgical History Surgical History No pertinent past surgical history Social History Social History Household Members: Family Housing: Apartment Do you presently have visiting nurse or other home services: No Alcohol intake: never Patient Tobacco Use Status: Never used Tobacco service: No Current occupational status: employed Meds Allergies Allergy/AdvReac Type Severity Reaction Status Date / Time No Known Allergies Allergy Verified 08/12/21 00:17 Active Medications: Current Medications Acetaminophen (Acetaminophen 325 Mg Tablet) 650 mg PO Q6H PRN PRN Reason: Pain, Mild (Pain Scale 1-3) Last Admin: 08/01/21 10:07 Dose: 650 mg Documented by: Hydromorphone HCl (Hydromorphone Hcl 1 Mg/Ml Syringe) 0.5 mg IVPUSH Q4H PRN; Protocol PRN Reason: Pain, Severe (Pain Scale 7-10) Last Admin: 08/01/21 12:57 Dose: 0.5 mg Documented by: Oxycodone HCl (Oxycodone Hcl Immed Release 5 Mg Tablet) 5 mg PO Q6H PRN PRN Reason: Pain, Severe (Pain Scale 7-10) Last Admin: 08/01/21 10:07 Dose: 5 mg Documented by: Sodium Chloride (0.9 % Sodium Chloride Flush 3 Ml Syringe) 3 ml IVFLUSH [facility] Medications Medication Instructions Recorded Confirmed Last Taken Type acetaminophen 325 mg tablet 650 mg PO Q6H PRN 08/01/21 08/12/21 Unknown History multivitamin 1 tab PO DAILY 08/01/21 08/08/21 1 Day Ago History ~08/11/21 sildenafil 100 mg tablet 1 tab PO DAILY 08/12/21 08/12/21 Unknown History Physical Exam Vital Signs: Vital Signs: Last Vital Signs Temp 99.7 F 08/01/21 15:28 Pulse 91 08/01/21 15:28 Resp 16 08/01/21 15:28 BP 144/82 H 08/01/21 15:28 Pulse Ox 96 08/01/21 15:28 BMI result Body Mass Index 29.7 Const: General: cooperative HENMT: Head: Yes normal to inspection Mouth: Normal oral and palatal mucosa present Throat: Yes posterior oropharynx normal Resp: Effort & Inspection: normal respiratory effort Cardio: Rate: regular rate Rhythm: regular rhythm GI: Palpation (GI): Soft to palpation and nontender Skin: General skin exam: no rashes or lesions noted Extrem: General: Yes normal to inspection Results Labs CBC & Chem 7: 08/01/21 05:36 08/01/21 05:36 Labs: Short CBC 08/01/21 Range/Units 05:36 WBC 10.3 (4.8-10.8) X10*3/uL Hgb 13.8 L (14.0-18.0) g/dl Hct 40.9 L (42.0-52.0) % Plt Count 215 (160-400) X10*3/uL BMP 08/01/21 05:36 Sodium 138 Potassium 3.7 Chloride 107 Carbon Dioxide 23 BUN 11 Creatinine 0.83 Calcium 8.7 Microbiology Microbiology Results: Microbiology 08/01/21 05:23 Cerebrospinal Fluid Gram Stain - Final 08/01/21 05:23 Cerebrospinal Fluid CSF Examination - Final 08/01/21 05:23 Cerebrospinal Fluid Fluid Description - Final Assessment and Plan (1) Aseptic meningitis: Status: Resolved He has no bacterial or viral (herpes) pathogens seen. He has no new medication. He has no known HIV risk factor. (2) Headache: Status: Deleted Plan Supportive care. Check HIV test.
[2021-08-01] MEDS: 0.9 % Sodium Chloride Flush 3 ML SYRINGE IVFLUSH ×2 (17:01→23:07)
[2021-08-02] VITALS (7 sets, daily range): BP systolic 130–182; BP diastolic 77–107; PULSE 83–93; RESP 14–20; TEMP 36.4–37.5; O2SAT 93–97
[2021-08-02] MEDS: HYDROmorphone HCl 1 MG/ML SYRINGE IVPUSH ×5 (02:59→21:06)
[2021-08-02 03:57] LABS: HIV AB/AG Nonreactive (Nonreactive); HIV Num 1 0.34 S/CO (0.00-0.99)
[2021-08-02] MEDS: oxyCODONE HCl Immed Release 5 MG TABLET PO (06:08)
--- NOTE | 2021-08-02 08:41 | MHC.CM.PN ---
PATIENT IS FULLY INDEPENDENT WITH ALL ADLS. NO DME OR VNA SERVICES. HE IS AWARE OF M.O.O.N. DELIVERY AND ASKS THAT HE BE PLACED BEDSIDE. PATIENT IS EXPRESSING DIFFICULTY WITH TALKING OR CONCENTRATING. HE AGREES TO CONTINUING CONVERSATION WHEN HE IS FEELING BETTER CASE MANAGEMENT TO ASK ABOUT COVID VACCINE AND POSSIBLE HCOP. LEANA 3 IN CHART
--- NOTE | 2021-08-02 11:20 | P.PNIM_ITS ---
Subjective Subjective Date of Service: 08/02/21 Interval History: f/u on headache Review of Systems persistent headache nausiea Physical Exam Vital Signs: Vital Signs: Last Vital Signs Temp 98.0 F 08/02/21 07:27 Pulse 88 08/02/21 07:27 Resp 18 08/02/21 07:27 BP 130/104 H 08/02/21 07:27 Pulse Ox 96 08/02/21 07:27 BMI result Body Mass Index 29.7 Const: Other: General: AO X 3, no acute distress Resp: CTA bilateral CVS: S1,S2,RRR GI: +BS, NT, no distention Skin: No rash Neuro: motor grossly intact Psych: appropriate affect Objective Data Active Medications Acetaminophen (Acetaminophen 325 Mg Tablet) 650 mg PO Q6H PRN PRN Reason: Pain, Mild (Pain Scale 1-3) Last Admin: 08/01/21 10:07 Dose: 650 mg Documented by: VASYL Hydromorphone HCl (Hydromorphone Hcl 1 Mg/Ml Syringe) 1 mg IVPUSH Q4H PRN; Protocol PRN Reason: Pain, Severe (Pain Scale 7-10) Last Admin: 08/02/21 08:14 Dose: 1 mg Documented by: LIU Oxycodone HCl (Oxycodone Hcl Immed Release 5 Mg Tablet) 5 mg PO Q6H PRN PRN Reason: Pain, Severe (Pain Scale 7-10) Last Admin: 08/02/21 06:08 Dose: 5 mg Documented by: LUCERO Sodium Chloride (0.9 % Sodium Chloride Flush 3 Ml Syringe) 3 ml [facility] [place] Last Admin: 08/02/21 08:18 Dose: Not Given Documented by: LIU Non-Admin Reason: Previously Administered Labs CBC & Chem 7: 08/01/21 05:36 08/01/21 05:36 Labs: Laboratory Results - last 24 hr 08/01/21 17:45 HIV 1&2 Ab/P24 Ag 4thGn Nonreactive Microbiology Microbiology Results: Microbiology 08/01/21 05:23 Gram Stain - Final Cerebrospinal Fluid CSF Examination - Final Fluid Description - Final CSF Culture - Preliminary No growth after 1 day Assessment and Plan (1) Aseptic meningitis: Status: Acute (2) Headache: Status: Acute Plan 6 year old male with headache and possible asceptic meningitis plan: Pain control, Neuro consult given persistent pain..No indication for antibiotics or Acyclovir at this time Quality Stroke Does the patient have a stroke diagnosis?: No VTE Prior VTE?: No VTE Risk Level:: Medical - low VTE Device Contraindication: Treatment Not Indicated VTE Drug Contraindication: Treatment Not Indicated
[2021-08-02] MEDS: Docusate Sodium 100 MG CAPSULE PO (11:46)
[2021-08-02] MEDS: Milk of Magnesia 30 ML ORAL.SUSP PO (11:46)
[2021-08-02] MEDS: ondansetron HCL 4 MG/2 ML VIAL IVPUSH (13:21)
--- NOTE | 2021-08-02 15:22 | P.CNNE_ITS ---
History of Present Illness Data of Consult Service Date: 08/02/21 Primary Care Provider: Luan Blunt MD [facility] Reason for consult: Headache 46 years old man who came to hospital with new onset of headache for few days. There was no associated cold or flu-like illness or rash or trauma. Pain was all around the head pressure and throbbing in nature associated with photophobia and moderate to severe intensity. When I saw him his headache intensity was about 7/10 and he just had received a pain killer. Review of Systems Review of Systems: No recent cold or flu-like illness drug use or trauma. He denied similar headaches in the past PMFSH Past Medical History Medical History No known health problems Family History Family history: reviewed and not pertinent Social History Social History Household Members: None Housing: House Do you presently have visiting nurse or other home services: No Alcohol intake: never Patient Tobacco Use Status: Never used Tobacco Use of substances other than those prescribed or required for medical reasons: No Currently Displaying Signs/Symptoms of Drug Intoxication Withdrawal: No Have you been hit, kicked, punched, or otherwise hurt by someone within the past year? If so, by whom?: No Do you feel safe in your current relationship?: Yes Is there a partner from a previous relationship who is making you feel unsafe now?: No Are you made to feel afraid or neglected: No Advance Directives: No Do you have thoughts of harming others: None Do you have a plan to hurt others: No Plan Recently lost weight without trying: No Nutrition Risks: No Nutritional Risk service: No Current occupational status: employed Meds Allergies Allergy/AdvReac Type Severity Reaction Status Date / Time No Known Allergies Allergy Verified 08/01/21 02:05 Active Medications: Current Medications Acetaminophen (Acetaminophen 325 Mg Tablet) 650 mg PO Q6H PRN PRN Reason: Pain, Mild (Pain Scale 1-3) Last Admin: 08/01/21 10:07 Dose: 650 mg Documented by: Docusate Sodium (Docusate Sodium 100 Mg Capsule) 100 mg PO BID PRN PRN Reason: Constipation Last Admin: 08/02/21 11:46 Dose: 100 mg Documented by: Hydromorphone HCl (Hydromorphone Hcl 1 Mg/Ml Syringe) 1 mg IVPUSH Q4H PRN; Protocol PRN Reason: Pain, Severe (Pain Scale 7-10) Last Admin: 08/02/21 11:47 Dose: 1 mg Documented by: Ketorolac Tromethamine (Ketorolac Tromethamine 15 Mg/Ml Vial) 15 mg IVPUSH Q6H PRN PRN Reason: Headache Magnesium Hydroxide (Milk Of Magnesia 30 Ml Oral.Susp) 30 ml PO DAILY PRN PRN Reason: Constipation Last Admin: 08/02/21 11:46 Dose: 30 ml Documented by: Ondansetron HCl (Ondansetron Hcl 4 Mg/2 Ml Vial) 4 mg IVPUSH Q8H PRN PRN Reason: Nausea and Vomiting Last Admin: 08/02/21 13:21 Dose: 4 mg Documented by: Oxycodone HCl (Oxycodone Hcl Immed Release 5 Mg Tablet) 5 mg PO Q6H PRN PRN Reason: Pain, Severe (Pain Scale 7-10) Last Admin: 08/02/21 06:08 Dose: 5 mg Documented by: Sodium Chloride (0.9 % Sodium Chloride Flush 3 Ml Syringe) 3 ml [facility] [place] Last Admin: 08/02/21 08:18 Dose: Not Given Documented by: Home Medications Medication Instructions Recorded Confirmed Last Taken Type acetaminophen 325 mg tablet 650 mg PO Q6H PRN 08/01/21 08/01/21 Unknown History vhzcsdx-fnugyhhmlwzpu-zxcvfnma 250 1 tab PO Q6H PRN 08/01/21 08/01/21 Unknown History mg-250 mg-65 mg tablet (Excedrin Migraine) multivitamin 1 tab PO DAILY 08/01/21 08/01/21 Unknown History Physical Exam Vital Signs: Vital Signs: Last Vital Signs Temp 98.5 F 08/02/21 11:26 Pulse 83 08/02/21 11:26 Resp 18 08/02/21 11:26 BP 164/80 H 08/02/21 11:26 Pulse Ox 97 08/02/21 11:26 BMI result Body Mass Index 29.7 Neuro: Other: Alert and awake with normal spontaneity of speech fluency comprehension and affect. He could not flex his chin saying that this was hurting or move his neck freely which was also hurting. Face was symmetrical. Tongue was midline. Deep tendon reflexes 1+ with flexor plantars. There was no focal weakness. Results Labs CBC & Chem 7: 08/01/21 05:36 08/01/21 05:36 Labs: Noncontrast head CT did not reveal any significant abnormality. Spinal fluid analysis was reviewed. Microbiology Microbiology Results: Microbiology 08/01/21 05:23 Cerebrospinal Fluid Gram Stain - Final 08/01/21 05:23 Cerebrospinal Fluid CSF Examination - Final 08/01/21 05:23 Cerebrospinal Fluid Fluid Description - Final 08/01/21 05:23 Cerebrospinal Fluid CSF Culture - Preliminary No growth after 1 day Assessment and Plan (1) Aseptic meningitis: Status: Acute 46 years old man with aseptic meningitis resulting in meningismus and headache. BT allergies unclear. Other than conservative measures including hydration and analgesia, I would also recommend testing for Lyme, syphilis, sarcoid, and lupus. Meningeal encephalitis panel 1 CSF is also recommended Procedures Date of Service Date of Service: 08/02/21
[2021-08-02] MEDS: 0.9 % Sodium Chloride Flush 3 ML SYRINGE IVFLUSH ×2 (16:13→21:06)
[2021-08-02] MEDS: Ketorolac Tromethamine 15 MG/ML VIAL IVPUSH (17:39)
[2021-08-03] MEDS: Ketorolac Tromethamine 15 MG/ML VIAL IVPUSH ×2 (01:35→07:28)
[2021-08-03 03:45] VITALS: BP 135/84; PULSE 80; RESP 14; TEMP 36.8; O2SAT 96
[2021-08-03] MEDS: oxyCODONE HCl Immed Release 5 MG TABLET PO (04:44)
[2021-08-03] MEDS: Acetaminophen 325 MG TABLET 650 MG PO ×2 (04:44→11:12)
[2021-08-03 07:27] VITALS: BP 159/103; PULSE 80; RESP 14; TEMP 36.8; O2SAT 97
--- NOTE | 2021-08-03 08:46 | PM.DS ---
DS: Providers Provider Date of Service: 08/03/21 Date of admission: 08/01/21 10:02 Primary care physician: Luan Blunt MD Consults: 08/01/21 08:59 Consult to Infectious Diseases Routine Consulting Provider: Kat Becker Reason for consultation: is this meningitis? Has provider been notified: No 08/01/21 15:28 Consult to Neurology Routine Consulting Provider: [facility] Reason for consultation: headache Has provider been notified: No 08/02/21 11:19 Consult to Neurology Routine Consulting Provider: [facility] Reason for consultation: Headache DS: Diagnosis Discharge Diagnosis (1) Aseptic meningitis: Status: Acute DS: Summary Hospital Course Hospital Course: [facility] Complaint: Headache 46 year old with no medical issues who has been having headache for about a week now and has been seen in the ED on 26, then the 28? and discharge with symptoms treatment. He comes back today saying t hat he has been having headache, photophobia and neck pain. There is no fever, normal WBC.? CSF study shows 162 WBC and CSF protein is 148 other than that finding is unremarkable.? Meningo/Encephalitis panel is negative--including viral pariticles Hospital course: Patient presented with headache and had some meningeal sings but no fever and WBC was normal. LP was negative for bacterial meningitis but possible asceptic meningitis, Meningo/Encephalitis panel was negative. Was seen by ID with no indication for antepartum medications or antibiotics. He was also seen by neurologist Dr. Lacey and recommended conservative management for pain control and recommended additional testing including lupus, sarcoid, and syphilis these testing pending. His headache was treated with IV pain medication including Dilaudid, oral oxycodone, Tylenol. He overall feels better today and therefore will be discharged home and to follow up with Dr. Lacey. Of note he was also noted BPs to be on high side persitently ranging from SBP of 140s to 160s, there could be a component of pain but started on Norvasc 5 mg daily and to follow up with PCP for further medication adjustment. He will be discharged with oral dilaudid and to continue Fiorocet previously prescribed in the emergency room. Final diagnosis; Aseptic meningitis Headache New diagnosis of hypertension Time Spent with Patient Time attestation: Total time spent providing and/or coordinating discharge services: Discharge coordination time: Greater than 30 minutes Quality: Stroke Does the patient have a stroke diagnosis?: No Physical Exam Vital Signs: Vital Signs: Last Vital Signs Temp 98.2 F 08/03/21 07:27 Pulse 80 08/03/21 07:27 Resp 14 08/03/21 07:27 BP 159/103 H 08/03/21 07:27 Pulse Ox 97 08/03/21 07:27 BMI result Body Mass Index 29.7 Const: Other: General: AO X 3, no acute distress HEENT: no nuchal rigidity Resp: CTA bilateral CVS: S1,S2,RRR GI: +BS, NT, no distention Skin: No rash Neuro: motor grossly intact Psych: appropriate affect DS: Data Data Completed and Pending Labs on day of discharge: Preliminary micro results at discharge 08/01/21 05:23 CSF Culture - Preliminary Cerebrospinal Fluid No growth after 1 day Discharge Plan Discharge Anticipated Discharge Date/Time: 08/03/21 08:40 Patient Disposition: Home, Self-Care Referrals: Luan Blunt MD [Primary Care Provider] - 1 Week Floyd Lacey MD [Physician] - 2 Weeks Discharge Medications: New hydromorphone 2 mg Tablet 2 mg PO Q4H PRN (Reason: Pain, Severe (Pain Scale 7-10)) Qty: 20 0RF docusate sodium 100 mg Capsule 100 mg PO BID PRN (Reason: Constipation) Qty: 30 0RF magnesium hydroxide [Milk of Magnesia] 400 mg/5 mL Suspension 30 ml PO DAILY PRN (Reason: Constipation) Qty: 355 0RF amlodipine 5 mg Tablet 5 mg PO DAILY Qty: 30 0RF Protocol: Hold for SBP< HOLD for SBP < : 90 Continued arvmozzgyu-lvfotqznybcwz-yciw [Fioricet] 50-300-40 mg capsule 1 cap PO Q4-6H PRN (Reason: migraine headache) Qty: 10 0RF Rx Instructions: May substitute for similar drug approved by his insurance plan multivitamin Tablet 1 tab PO DAILY 0RF acetaminophen 325 mg Tablet 650 mg PO Q6H PRN (Reason: Pain) 0RF Excedrin Migraine 250-250-65 mg Tablet 1 tab PO Q6H PRN (Reason: Migraine Headache) 0RF Discharge Orders: Discharge Order (Routine); Ordered 08/03/21 Ordered By: Terrence Her Diet: advance to usual diet Activity on Discharge: As tolerated Stand Alone Forms: Patient Portal Discharge page Care Plan Goals: Full recovery from headaches Health Concerns: Headache Plan of Treatment: Take Fiorocet and Dilaudid as directed for pain and follow up with your Doctor in a week call for appointment Follow up with Neurologist Dr. Lacey in a week If blood pressure has been on the high side so that I have started you on Norvasc 5 mg daily to control the blood pressure, you should follow-up with her primary care doctor to get adjustment in the medication and blood pressure recheck Assessment: As above
--- NOTE | 2021-08-03 08:52 | MHC.CM.PN ---
nurse critical care technician note - electronic medical record reviewed along with case discussed with staff nurse , patient will be discharged home today patient is aware and accepting of this discharge plan home with no services pcp duyen espinoza transportation patient to [facility]
[2021-08-03] MEDS: HYDROmorphone HCl 2 MG TABLET PO (08:53)
[2021-08-03] MEDS: amLODIPine Besylate 5 MG TABLET PO (08:53)
[2021-08-03] MEDS: 0.9 % Sodium Chloride Flush 3 ML SYRINGE IVFLUSH (08:54)
[2021-08-03 11:32] VITALS: BP 171/101; PULSE 82; RESP 20; TEMP 36.3; O2SAT 99
[2021-08-04 08:36] LABS: Lyme Abs Screen <0.90 index
[2021-08-04 08:37] LABS: Syphilis Screen Nonreactive (Nonreactive)
[2021-08-04 15:07] LABS: Anti Nuclear Antibody Screen NEGATIVE (NEGATIVE)
[2021-08-09 21:11] LABS: DNAds, Crithidia Antibody Negative (Negative)
== END 2021-08-03 13:20 | disposition home or self-care (01) ==
LOC: HO.ED 06:05 → HO.EDOVER 10:07 → HO.S3 19:18
PROVIDERS: Internal Medicine; Admitting Provider Internal Medicine; Emergency Provider Emergency Medicine; PCP Internal Medicine; Visit Provider Internal Medicine
DX: R51.9 Headache, unspecified (principal); G03.0 Nonpyogenic meningitis; H53.149 Visual discomfort, unspecified; M54.2 Cervicalgia; R77.8 Other specified abnormalities of plasma proteins; D72.829 Elevated white blood cell count, unspecified; Z20.822 Contact with and (suspected) exposure to COVID-19; Z79.899 Other long term (current) drug therapy
CPT/HCPCS: 36415; 80048; 80307; 82164; 82945; 83605; 84157; 85025; 85610; 85652; 86038; 86039; 86140; 86255; 86617; 86618; 86780; 87015; 87070; 87205; 87389; 87483; 87635; 87801; 89051; 96361; 96365; 96367; 96375; 96376; 99218; 99285; J0133; J0696; J1170; J1200; J1885; J2405; J2765; J3370

== ENCOUNTER 2021-08-08 14:06 | Inpatient (IN) | payer OTHER, SELFPAY ==
--- NOTE | ~2021-08-08 | XR_ITS ---
EXAMINATION: XR CHEST CLINICAL INFORMATION: Leukocytosis and lactic acidosis. COMPARISON: None. TECHNIQUE: AP view of the chest was obtained. FINDINGS: Normal appearance of the cardiomediastinal silhouette. EKG wires overlie the chest. Low lung volumes with diffuse bronchovascular crowding but no focal airspace opacities, pleural effusions or pneumothorax. No acute osseous abnormalities. The visualized upper abdomen is within normal limits. XR/XR chest 1V IMPRESSION: No acute cardiopulmonary findings.
--- NOTE | ~2021-08-08 | MR_ITS ---
EXAMINATION: MRI angiogram head without and with contrast MR venogram head without and with contrast CLINICAL INFORMATION: Possible cortical vein thrombosis on CT scan. COMPARISON: CT scan of the head 08/08/2021. TECHNIQUE: An MR angiogram and MR venogram of the head was performed without and with contrast. A total of 10 mL Gadavist was utilized for this examination. MIP reconstructions were generated in multiple orientations at the acquisition workstation. Multiple three-dimensional surface rendered images and maximum intensity projection images were generated on a dedicated 3-D lab workstation. Arterial stenoses are measured in accordance with NASCET criteria or similar method if applicable. FINDINGS: At the site of the suspected hyperdense cortical vein over the left cerebral convexity near the vertex there is no identifiable flow related enhancement and there is a filling defect within the cortical vein on postcontrast images. These findings support the suspicion of a cortical vein thrombosis. The superior sagittal sinus and torcula are patent. Internal cerebral veins, vein of Lux, and straight sinus are patent. Transverse sinuses, sigmoid sinuses, and visualized upper internal jugular veins are patent. The intracranial internal carotid arteries are patent. The intradural vertebral artery segments and basilar artery are patent. Anterior, middle, and posterior cerebral artery complexes are normal. Visualized portions of the anterior, middle, and posterior cerebral artery complexes are normal. MR/MR venography head wo/w con IMPRESSION: Findings support the likelihood of a small cortical vein thrombosis over the left cerebral convexity near the vertex.
--- NOTE | ~2021-08-08 | MR_ITS ---
EXAMINATION: MRI angiogram head without and with contrast MR venogram head without and with contrast CLINICAL INFORMATION: Possible cortical vein thrombosis on CT scan. COMPARISON: CT scan of the head 08/08/2021. TECHNIQUE: An MR angiogram and MR venogram of the head was performed without and with contrast. A total of 10 mL Gadavist was utilized for this examination. MIP reconstructions were generated in multiple orientations at the acquisition workstation. Multiple three-dimensional surface rendered images and maximum intensity projection images were generated on a dedicated 3-D lab workstation. Arterial stenoses are measured in accordance with NASCET criteria or similar method if applicable. FINDINGS: At the site of the suspected hyperdense cortical vein over the left cerebral convexity near the vertex there is no identifiable flow related enhancement and there is a filling defect within the cortical vein on postcontrast images. These findings support the suspicion of a cortical vein thrombosis. The superior sagittal sinus and torcula are patent. Internal cerebral veins, vein of Lux, and straight sinus are patent. Transverse sinuses, sigmoid sinuses, and visualized upper internal jugular veins are patent. The intracranial internal carotid arteries are patent. The intradural vertebral artery segments and basilar artery are patent. Anterior, middle, and posterior cerebral artery complexes are normal. Visualized portions of the anterior, middle, and posterior cerebral artery complexes are normal. MR/MR angio head wo/w con IMPRESSION: Findings support the likelihood of a small cortical vein thrombosis over the left cerebral convexity near the vertex.
--- NOTE | ~2021-08-08 | CT_ITS ---
EXAMINATION: CT HEAD WITHOUT CONTRAST CLINICAL INFORMATION: Severe headache. COMPARISON: CT head from 07/29/2021. TECHNIQUE: Contiguous axial imaging was performed from the skull base to vertex without intravenous administration of contrast. This CT examination was performed using dose optimization techniques as appropriate, variously including the following: *Automated exposure control. *Adjustment of mA and/or kV according to patient size (this includes techniques or standardized protocols for targeted exams where dose is matched to indication/reason for exam; i.e. extremities or head). *Use of iterative reconstruction technique. DLP: 733 mGy-cm FINDINGS: There is no evidence of acute intracranial hemorrhage or edematous territorial infarction. There is no abnormal attenuation within the brain parenchyma. Mcclure-white matter differentiation is preserved. The ventricles are normal in size and configuration. No evidence for obstructive hydrocephalus. No abnormal mass effect or midline shift. No extra-axial fluid collections. There is a single hyperattenuating cortical vein along the high left frontal lobe. No demonstrated abnormal hyperattenuation of the major dural venous sinuses. No acute soft tissue or osseous abnormalities. Mild mucosal thickening of the paranasal sinuses. The mastoid air cells and middle ear cavities are clear. Moderate rightward nasal septal deviation. CT/CT head/brain wo con IMPRESSION: 1. No evidence of acute intracranial hemorrhage or edematous territorial infarction. 2. There appears to be a single hyperattenuating cortical vein along the high left frontal lobe that may represent sequela of isolated cortical vein thrombosis in the appropriate clinical setting.
[2021-08-08 14:18] VITALS: BP 142/87; PULSE 91; RESP 18; TEMP 37.1; O2SAT 97
[2021-08-08 14:35] LABS: MANUAL DIFF FLAG NO
[2021-08-08 14:40] LABS: Basophils Absolute Auto 0.1 X10*3/uL (0.0-0.2); Basophils Percent Auto 0.4 % (0-2); Eosinophils Absolute Auto 0.1 X10*3/uL (0.0-0.4); Eosinophils Percent Auto 0.4 % (0-4); Hematocrit 47.2 % (42.0-52.0); Hemoglobin 16.4 g/dl (14.0-18.0); Imm Gran Abs Auto 0.03 X10*3/uL (0.00-0.03); Imm Gran Pct Auto 0.3 % (0.0-0.4); Lymphocytes Absolute Auto 2.1 X10*3/uL (1.2-4.9); Lymphocytes Percent Auto 18.1 % (20-40); Mean Corpuscular HGB Conc 34.7 g/dl (31.0-36.0); Mean Corpuscular Hemoglobin 28.3 pg (27.0-33.0); Mean Corpuscular Volume 81.5 fL (80.0-98.0); Monocytes Absolute Auto 0.6 X10*3/uL (0.1-1.2); Monocytes Percent Auto 4.8 % (2-11); Platelet Count 351 X10*3/uL (160-400); Red Blood Count 5.79 X10*6/uL (4.60-5.80); Red Cell Distribution Width 13.2 % (11.0-16.0); White Blood Count 11.8 X10*3/uL (4.8-10.8)
[2021-08-08 14:53] LABS: Anion Gap 16 (12-20); Blood Urea Nitrogen 15 mg/dL (9-16); Calcium 9.7 mg/dL (8.4-10.2); Carbon Dioxide 21 mmol/L (22-29); Chloride 102 mmol/L (96-108); Creatinine Clr Calc Pharmacy 98.1; Estimated Glomerular Filt Rate > 60; Glucose Random 124 mg/dL (60-115); Potassium 3.8 mmol/L (3.3-5.1); Sodium 135 mmol/L (135-145)
[2021-08-08 14:57] LABS: COVID-19 Test Negative (Negative)
--- NOTE | 2021-08-08 15:32 | PC.NURSE ---
CHARGE NURSE IS AWARE THAT PT APPEARS TO HAVE AMS, AND IS IN THE WAITING ROOM STATING HE NEEDS HELP
[2021-08-08] MEDS: Acetaminophen 325 MG TABLET 650 MG PO (16:09)
[2021-08-08 16:15] VITALS: BP 152/96; PULSE 109; RESP 20; O2SAT 100
[2021-08-08] MEDS: HYDROmorphone HCl 1 MG/ML SYRINGE IVPUSH ×3 (16:45→19:31)
[2021-08-08] MEDS: 0.9 % Sodium Chloride 1,000 ML 999 ML IV ×2 (16:45→19:01)
[2021-08-08] MEDS: diphenhydrAMINE HCL 50 MG/ML VIAL IVPUSH (16:45)
[2021-08-08] MEDS: Metoclopramide HCl 10 MG/2 ML VIAL IVPUSH (16:45)
[2021-08-08 17:22] VITALS: BP 148/62; PULSE 85; RESP 16; O2SAT 99
[2021-08-08 17:33] LABS: Alanine Aminotransferase 12 U/L (0-40); Albumin Level 4.3 g/dL (3.5-5.0); Alkaline Phosphatase 51 U/L (39-117); Aspartate Amino Transferase 17 U/L (5-37); Bilirubin Direct 0.2 mg/dL (0.0-0.5); Bilirubin Total 0.8 mg/dL (0.0-1.0); C Reactive Protein 0.16 mg/dL (< or = 0.50); Total Protein 7.7 g/dL (6.5-8.0)
[2021-08-08 17:37] LABS: INTERNATIONAL NORM RATIO 1.1 (0.9-1.1); Prothrombin Time 12.9 SEC (9.9-13.0)
[2021-08-08 17:39] LABS: Partial Thromboplastin Time 30.1 SEC (24.1-38.0)
[2021-08-08 17:46] LABS: Ethanol < 10 mg/dL
[2021-08-08 17:50] LABS: Lactic Acid 2.6 mmol/L (0.5-2.0)
[2021-08-08 18:11] VITALS: BP 157/90; PULSE 95; RESP 18; O2SAT 99
--- NOTE | 2021-08-08 18:45 | ED.HA ---
HPI - Headache General Chief Complaint: Headache Stated Complaint: Meningitis? Time Seen by Provider: 08/08/21 14:58 Source: patient and family Mode of arrival: ambulatory Limitations: altered mental status (Patient initially had difficulty answering questions secondary to his headache and discomfort.) History of Present Illness HPI Narrative: 46-year-old male who presents emergency department for evaluation of severe headache. He states that the headache is been constant since 07/25/2021. The tai a leann was seen in the emergency department for this headache on 07/29/2019 to with a negative workup including negative CT scan. He was treated with pain medications with improvement of symptoms. He was seen again 07/31/2021 complaining of headache, again treated with pain medications improvement of his symptoms. He return to the emergency department 3rd time on 08/01/2021. At that time he stated he took his pain medications as headache wound was all for a few hours but his headache turning. He also complained of neck pain at that time. The patient had an spinal on his 3rd visit. He was noted to have elevated CSF WBCs of 162 and an elevated CSF protein of 148. The patient was admitted for meningitis, initially treated with ceftriaxone and vancomycin. The patient was seen by infectious disease and neurology and had extensive workup which was negative for known viruses, HIV, syphilis, and Lyme disease. Patient was diagnosed with aseptic meningitis and discharged on Dilaudid. According to the patient's mother, the patient was taking Dilaudid with some relief of his headache . The patient states this headache never improved since being discharged from the hospital. The patient was concerned about addiction and stop taking his Dilaudid 3 days prior. He now presents in acute distress with a severe headache. He states that the headache is constant, throbbing and located on the top of his head. The pain is greater than 10/10. He also complained of neck pain. The patient was in significant distress on presentation, he was in the position, holding his head, and asking for help with his pain. As stated above initially was not able answer questions but after medication was given he was able to give me a history. MD elicited complaint: headache Pertinent past history: other (Aseptic meningitis diagnosed 08/01/2021 during hospital admission) Onset (ago): week(s) (3) Onset description: suddenly Location: other (Top of head) Severity: severe Pain scale (0-10): 10 Quality & Timing: dull and steady Exacerbating factors: none Relieving factors: nothing Associated symptoms: neck stiffness Treatments prior to arrival: other (Dilaudid) Related Data Home Medications Medication Instructions Recorded Confirmed acetaminophen 325 mg tablet 650 mg PO Q6H PRN 08/01/21 08/01/21 urpiltq-idfaelebwgowa-aodgnpqh 250 1 tab PO Q6H PRN 08/01/21 08/01/21 mg-250 mg-65 mg tablet (Excedrin Migraine) multivitamin 1 tab PO DAILY 08/01/21 08/01/21 Previous Rx's Medication Instructions Recorded rjrajmidel-lizmztwtacbod-pqjgohol 1 cap PO Q4-6H PRN #10 cap 07/31/21 50 mg-300 mg-40 mg capsule (Fioricet) amlodipine 5 mg tablet 5 mg PO DAILY #30 tab 08/03/21 docusate sodium 100 mg capsule 100 mg PO BID PRN #30 cap 08/03/21 hydromorphone 2 mg tablet 2 mg PO Q4H PRN #20 tab 08/03/21 magnesium hydroxide 400 mg/5 mL 30 ml PO DAILY PRN #355 ml 08/03/21 oral suspension (Milk of Magnesia) Allergies Allergy/AdvReac Type Severity Reaction Status Date / Time No Known Allergies Allergy Verified 08/01/21 02:05 Review of Systems Review of Systems: Yes all other systems are reviewed and are negative [facility] Past Medical History [facility] Narrative: Past medical history: Kidney stones. Past surgical history: Kidney stone removal. Social history: He denies tobacco, alcohol and drug use. Medical History No known health problems Social History Social History Household Members: None Housing: House Do you presently have visiting nurse or other home services: No Alcohol intake: never Patient Tobacco Use Status: Never used Tobacco Advance Directives: No Advance Directives Information Provided: No service: No Current occupational status: employed Physical Exam Vital Signs: Vital Signs: Last Vital Signs Temp 98.7 F 08/08/21 19:11 Pulse 95 08/08/21 18:11 Resp 18 08/08/21 18:11 BP 157/90 H 08/08/21 18:11 Pulse Ox 99 08/08/21 18:11 BMI result Body Mass Index 30.0 Const: Other: Patient appears to be in severe distress, he is holding his head, he has crawled up in a position HENMT: Head: Yes normal to inspection, Yes normocephalic and Yes atraumatic Ears: external ears normal General nose exam: Normal external nose present Face and sinus: Yes normal facial exam Mouth: Normal oral and palatal mucosa present Throat: Yes posterior oropharynx normal Eyes: General: appearance normal, both eyes and all related structures Pupils: Equal, round and reactive pupils present Neck: Neck: Yes normal visual inspection, Yes no lymphadenopathy, Yes trachea midline and Yes supple Chest: Chest palpation & inspection: normal inspection of the chest and normal palpation of entire chest wall Resp: Effort & Inspection: normal respiratory effort and able to speak in complete sentences Auscultation: clear to auscultation bilaterally Cardio: Rate: regular rate Rhythm: regular rhythm Heart sounds: S1 normal heart sound present, S2 normal heart sound present and no murmurs GI: Inspection: Yes normal to inspection Palpation (GI): Soft to palpation, nontender and no guarding Auscultation: normal bowel sounds : General: Yes no CVA tenderness Back/Spine/Pelvis: Back: no CVA tenderness Skin: General skin exam: no rashes or lesions noted Neuro: Cranial nerves: Yes CN's II-XII intact bilaterally and Yes Equal, round and reactive pupils present Cognition (Neuro): normal cognition Motor exam (neuro): 5/5 motor strength present throughout Extrem: General: Yes normal to inspection Psych: Appearance: grossly normal Speech and movement: Normal speech and movement present Affect: normal affect Attitude: cooperative Thought process: Normal thought process present Thought content: Normal thought content present Course Course Course Narrative: 46-year-old male who presents emergency department for evaluation of intractable headache. Patient was hospitalized on 08/01/2021 and diagnosed with aseptic meningitis with a negative workup. On presentation the patient was in significant distress secondary to his headache. His neurologic exam was nonfocal. The patient's laboratory evaluation revealed elevated WBC 28418, negative coags, elevated lactic acid of 2.6, elevated glucose 124, negative urine tox screen, negative COVID-19. CT scan of the head revealed no acute bleed, the radiologist question a single hyper attenuated cortical vein along the high left frontal lobe that may represent sequelae of isolated cortical vein thrombosis in the appropriate clinical setting. At this time I do not think that this is the cause of the patient's headache however an MRI might further evaluate this finding. MRI is not available at this time. The patient was medicated with Tylenol 650 mg orally. Dilaudid 1 mg IV x3 doses, Reglan 10 mg IV, Benadryl 50 mg IV and then 25 mg IV and droperidol 1.25 mg IV. The patient did get some improvement of his headache with these medications however he continued to have episodes of severe pain. At 1 point, he became very agitated and his girlfriend noted that he had not urinated most the day., Therefore he was straight cath and 1 L of urine was drained from his bladder and this improved his agitation. At this time I believe that the patient's pain is related to his a septic meningitis. He did receive Toradol 30 mg IV and I do think that this helped his pain as well. I did discuss admission with the covering hospitalist, Dr. Dorsey and the patient will be admitted for intractable headache. [facility] - Headache Medical Records Attestation: I reviewed the patient's medical records. Lab Data Result diagrams: 08/08/21 14:29 08/08/21 14:29 Labs: Lab Results 08/08/21 08/08/21 08/08/21 Range/Units 14:29 14:29 14:29 WBC 11.8 H (4.8-10.8) X10*3/uL RBC 5.79 (4.60-5.80) X10*6/uL Hgb 16.4 (14.0-18.0) g/dl Hct 47.2 (42.0-52.0) % MCV 81.5 (80.0-98.0) fL MCH 28.3 (27.0-33.0) pg MCHC 34.7 (31.0-36.0) g/dl RDW 13.2 (11.0-16.0) % Plt Count 351 D (160-400) X10*3/uL MPV 9.0 L (9.4-12.4) fL Immature Gran % (Auto) 0.3 (0.0-0.4) % Neut % (Auto) 76.0 H (45-73) % Lymph % (Auto) 18.1 L (20-40) % [place] % (Auto) 4.8 (2-11) % Eos % (Auto) 0.4 (0-4) % Baso % (Auto) 0.4 (0-2) % Lymph # (Auto) 2.1 (1.2-4.9) X10*3/uL [place] # (Auto) 0.6 (0.1-1.2) X10*3/uL Eos # (Auto) 0.1 (0.0-0.4) X10*3/uL Baso # (Auto) 0.1 (0.0-0.2) X10*3/uL Abs Immat Gran (auto) 0.03 (0.00-0.03) X10*3/uL Absolute Neuts (auto) 9.0 H (2.0-8.3) x10*3/uL Absolute Nucleated RBC 0.000 (0.0-0.012) X10*3/uL Nucleated RBC % (auto) 0.0 (0.0-0.2) /100WBC ESR (0-15) MM/HR PT (9.9-13.0) SEC INR (0.9-1.1) APTT (24.1-38.0) SEC Sodium 135 (135-145) mmol/L Potassium 3.8 (3.3-5.1) mmol/L Chloride 102 (96-108) mmol/L Carbon Dioxide 21 L (22-29) mmol/L Anion Gap 16 (12-20) BUN 15 (9-16) mg/dL Creatinine 0.97 (0.5-1.4) mg/dL Estim Creat Clear Calc 98.1 Estimated GFR > 60 Random Glucose 124 H (60-115) mg/dL Lactic Acid (0.5-2.0) mmol/L Lactic Acid F/U @ 2Hr (0.5-2.0) mmol/L Calcium 9.7 D (8.4-10.2) mg/dL Total Bilirubin 0.8 (0.0-1.0) mg/dL Direct Bilirubin 0.2 (0.0-0.5) mg/dL AST 17 (5-37) U/L ALT 12 (0-40) U/L Alkaline Phosphatase 51 (39-117) U/L C-Reactive Protein 0.16 (< or = 0.50) mg/dL Total Protein 7.7 (6.5-8.0) g/dL Albumin 4.3 (3.5-5.0) g/dL Urine Opiates Screen (Not Detect) Urine Fentanyl Screen (Not Detect) Ur Barbiturates Screen (Not Detect) Ur Phencyclidine Scrn (Not Detect) Ur Amphetamines Screen (Not Detect) U Benzodiazepines Scrn (Not Detect) Urine Cocaine Screen (Not Detect) U Marijuana (THC) Screen (Not Detect) Ethyl Alcohol mg/dL COVID-19 ([facility]) Negative (Negative) COVID-19 Clin Com See Note 08/08/21 08/08/21 08/08/21 Range/Units 14:29 17:10 17:10 WBC (4.8-10.8) X10*3/uL RBC (4.60-5.80) X10*6/uL Hgb (14.0-18.0) g/dl Hct (42.0-52.0) % MCV (80.0-98.0) fL MCH (27.0-33.0) pg MCHC (31.0-36.0) g/dl RDW (11.0-16.0) % Plt Count (160-400) X10*3/uL MPV (9.4-12.4) fL Immature Gran % (Auto) (0.0-0.4) % Neut % (Auto) (45-73) % Lymph % (Auto) (20-40) % [place] % (Auto) (2-11) % Eos % (Auto) (0-4) % Baso % (Auto) (0-2) % Lymph # (Auto) (1.2-4.9) X10*3/uL [place] # (Auto) (0.1-1.2) X10*3/uL Eos # (Auto) (0.0-0.4) X10*3/uL Baso # (Auto) (0.0-0.2) X10*3/uL Abs Immat Gran (auto) (0.00-0.03) X10*3/uL Absolute Neuts (auto) (2.0-8.3) x10*3/uL Absolute Nucleated RBC (0.0-0.012) X10*3/uL Nucleated RBC % (auto) (0.0-0.2) /100WBC ESR 14 (0-15) MM/HR PT 12.9 (9.9-13.0) SEC INR 1.1 (0.9-1.1) APTT 30.1 (24.1-38.0) SEC Sodium (135-145) mmol/L Potassium (3.3-5.1) mmol/L Chloride (96-108) mmol/L Carbon Dioxide (22-29) mmol/L Anion Gap (12-20) BUN (9-16) mg/dL Creatinine (0.5-1.4) mg/dL Estim Creat Clear Calc Estimated GFR Random Glucose (60-115) mg/dL Lactic Acid (0.5-2.0) mmol/L Lactic Acid F/U @ 2Hr (0.5-2.0) mmol/L Calcium (8.4-10.2) mg/dL Total Bilirubin (0.0-1.0) mg/dL Direct Bilirubin (0.0-0.5) mg/dL AST (5-37) U/L ALT (0-40) U/L Alkaline Phosphatase (39-117) U/L C-Reactive Protein (< or = 0.50) mg/dL Total Protein (6.5-8.0) g/dL Albumin (3.5-5.0) g/dL Urine Opiates Screen (Not Detect) Urine Fentanyl Screen (Not Detect) Ur Barbiturates Screen (Not Detect) Ur Phencyclidine Scrn (Not Detect) Ur Amphetamines Screen (Not Detect) U Benzodiazepines Scrn (Not Detect) Urine Cocaine Screen (Not Detect) U Marijuana (THC) Screen (Not Detect) Ethyl Alcohol < 10 mg/dL COVID-19 ([facility]) (Negative) COVID-19 Clin Com 08/08/21 08/08/21 08/08/21 Range/Units 17:10 19:37 20:13 WBC (4.8-10.8) X10*3/uL RBC (4.60-5.80) X10*6/uL Hgb (14.0-18.0) g/dl Hct (42.0-52.0) % MCV (80.0-98.0) fL MCH (27.0-33.0) pg MCHC (31.0-36.0) g/dl RDW (11.0-16.0) % Plt Count (160-400) X10*3/uL MPV (9.4-12.4) fL Immature Gran % (Auto) (0.0-0.4) % Neut % (Auto) (45-73) % Lymph % (Auto) (20-40) % [place] % (Auto) (2-11) % Eos % (Auto) (0-4) % Baso % (Auto) (0-2) % Lymph # (Auto) (1.2-4.9) X10*3/uL [place] # (Auto) (0.1-1.2) X10*3/uL Eos # (Auto) (0.0-0.4) X10*3/uL Baso # (Auto) (0.0-0.2) X10*3/uL Abs Immat Gran (auto) (0.00-0.03) X10*3/uL Absolute Neuts (auto) (2.0-8.3) x10*3/uL Absolute Nucleated RBC (0.0-0.012) X10*3/uL Nucleated RBC % (auto) (0.0-0.2) /100WBC ESR (0-15) MM/HR PT (9.9-13.0) SEC INR (0.9-1.1) APTT (24.1-38.0) SEC Sodium (135-145) mmol/L Potassium (3.3-5.1) mmol/L Chloride (96-108) mmol/L Carbon Dioxide (22-29) mmol/L Anion Gap (12-20) BUN (9-16) mg/dL Creatinine (0.5-1.4) mg/dL Estim Creat Clear Calc Estimated GFR Random Glucose (60-115) mg/dL Lactic Acid 2.6 H* (0.5-2.0) mmol/L Lactic Acid F/U @ 2Hr 1.6 (0.5-2.0) mmol/L Calcium (8.4-10.2) mg/dL Total Bilirubin (0.0-1.0) mg/dL Direct Bilirubin (0.0-0.5) mg/dL AST (5-37) U/L ALT (0-40) U/L Alkaline Phosphatase (39-117) U/L C-Reactive Protein (< or = 0.50) mg/dL Total Protein (6.5-8.0) g/dL Albumin (3.5-5.0) g/dL Urine Opiates Screen Not Detected (Not Detect) Urine Fentanyl Screen Not Detected (Not Detect) Ur Barbiturates Screen Not Detected (Not Detect) Ur Phencyclidine Scrn Not Detected (Not Detect) Ur Amphetamines Screen Not Detected (Not Detect) U Benzodiazepines Scrn Not Detected (Not Detect) Urine Cocaine Screen Not Detected (Not Detect) U Marijuana (THC) Screen Not Detected (Not Detect) Ethyl Alcohol mg/dL COVID-19 ([facility]) (Negative) COVID-19 Clin Com Critical Care Time Critical Care Time Critical Care Time: Yes Total Critical Care Time: 45 Attestation: Critical Care: The patient was critically ill with a high probability of imminent or life threatening deterioration. I spent greater than 30 minutes of discontinuous time evaluating the patient,delivering critical care at the bedside, discussing and evaluating pertinent data with consultants. Critical care time does not include time spent performing separately billable procedures or teaching. Total time spent performing critical care was 45 minutes. Discharge Plan Discharge Clinical Impression: Meningitis, Acute intractable headache Patient Disposition: Admitted As Inpatient Prescriptions: No Action prysyfkhkt-lrsblveqmwkdf-poeo [Fioricet] 50-300-40 mg capsule 1 cap PO Q4-6H PRN (Reason: migraine headache) Qty: 10 0RF Rx Instructions: May substitute for similar drug approved by his insurance plan multivitamin Tablet 1 tab PO DAILY 0RF acetaminophen 325 mg Tablet 650 mg PO Q6H PRN (Reason: Pain) 0RF Excedrin Migraine 250-250-65 mg Tablet 1 tab PO Q6H PRN (Reason: Migraine Headache) 0RF amlodipine 5 mg Tablet 5 mg PO DAILY Qty: 30 0RF Protocol: Hold for SBP< HOLD for SBP < : 90 hydromorphone 2 mg Tablet 2 mg PO Q4H PRN (Reason: Pain, Severe (Pain Scale 7-10)) Qty: 20 0RF docusate sodium 100 mg Capsule 100 mg PO BID PRN (Reason: Constipation) Qty: 30 0RF magnesium hydroxide [Milk of Magnesia] 400 mg/5 mL Suspension 30 ml PO DAILY PRN (Reason: Constipation) Qty: 355 0RF
[2021-08-08 18:49] LABS: Erythrocyte Sedimentation Rate 14 MM/HR (0-15)
[2021-08-08 19:11] VITALS: TEMP 37.1
[2021-08-08 19:13] LABS: Reflex Lactate? Lactic Acid Added
[2021-08-08] MEDS: diphenhydrAMINE HCL 50 MG/ML VIAL 25 MG IVPUSH (19:31)
[2021-08-08 19:51] LABS: ~Lactic Acid-LAB USE ONLY 1.6 mmol/L (0.5-2.0)
[2021-08-08] MEDS: Ketorolac Tromethamine 15 MG/ML VIAL 30 MG IVPUSH (20:03)
[2021-08-08 20:33] LABS: Amphetamine Screen Urine Not Detected (Not Detect); Barbiturates, Urine Not Detected (Not Detect); Benzodiazepines Screen Urine Not Detected (Not Detect); Cannabinoid Screen Urine Not Detected (Not Detect); Cocaine Screen Urine Not Detected (Not Detect); Fentanyl, urine Not Detected (Not Detect); Opiate Screen Urine Not Detected (Not Detect); Phencyclidine Screen Urine Not Detected (Not Detect)
--- NOTE | 2021-08-08 21:38 | PM.IMHP ---
History of Present Illness Date of Service: 08/08/21 Chief Complaint: severe headache this is a 46-year-old male with no significant past medical history who initially presented to the hospital on 3 with complaints of severe headache, initially treated with IV antibiotics after an LP showed possible meningitis. He was evaluated by ID as well as Neurology. No indication for antepartum medication antibiotics, felt to be possibly aseptic meningitis. He was sent home on Dilaudid on 08/03. The patient's mother and girlfriend at bedside state that he was taking the Dilaudid with some relief but he stop taking the medication 2 days ago because he was concerned about addiction. He subsequently developed severe 10/10 headache all over his head, associated with some nausea no vomiting, and severe agitation. Patient received Dilaudid, Benadryl, Toradol in the ED and is now very somnolent but arousable and unable to give much history. He is able to follow command but unable to tell me about his symptoms. According to the ED physician he came in to the ED with severe pain, no change in vision was reported. On arrival to the ED patient hemodynamically stable with heart rate of 109, respiratory rate of 20, blood pressure 152/96, satting 100% on room air Labs are significant for WBC count of 13.6, hemoglobin 13.9, D-dimer of 269, lactic acid of 2.6 that resolved after IV fluids, COVID negative, no significant LFT abnormality. Head CT showed no evidence of acute intracranial hemorrhage or abnormalities territorial infarction but there appears to be a single high written waiting cortical vein along the high left frontal lobe that may represent sequelae of isolated cortical vein thrombosis in the appropriate clinical setting. Spoke to Neurology, patient will be started on heparin drip and admitted for further management Review of Systems Review of Systems: Yes all other systems are reviewed and are negative [facility] Medical History (Updated 08/09/21 @ 06:35 by Todd Dorsey MD) No known health problems Family History (Updated 08/09/21 @ 06:34 by Todd Dorsey MD) Other No family history of coronary artery disease Surgical History (Updated 08/09/21 @ 06:34 by Todd Dorsey MD) No pertinent past surgical history Social History Household Members: None Housing: House Do you presently have visiting nurse or other home services: No Alcohol intake: never Patient Tobacco Use Status: Never used Tobacco Advance Directives: No Advance Directives Information Provided: No service: No Current occupational status: employed Meds Allergies Allergy/AdvReac Type Severity Reaction Status Date / Time No Known Allergies Allergy Verified 08/01/21 02:05 Active Medications: Current Medications Ketorolac Tromethamine (Ketorolac Tromethamine 15 Mg/Ml Vial) 30 mg IVPUSH ONCE PRN PRN Reason: Headache Last Admin: 08/08/21 20:03 Dose: 30 mg Documented by: Home Medications Medication Instructions Recorded Confirmed Last Taken Type acetaminophen 325 mg tablet 650 mg PO Q6H PRN 08/01/21 08/08/21 Unknown History [id number]-kptsjngnqexqy-kcrxbcox 250 1 tab PO Q6H PRN 08/01/21 08/08/21 Unknown History mg-250 mg-65 mg tablet (Excedrin Migraine) multivitamin 1 tab PO DAILY 08/01/21 08/08/21 Unknown History Physical Exam Vital Signs and Narrative: Vital Signs: Last Vital Signs Temp 98.7 F 08/08/21 19:11 Pulse 95 08/08/21 18:11 Resp 18 08/08/21 18:11 BP 157/90 H 08/08/21 18:11 Pulse Ox 99 08/08/21 18:11 BMI result Body Mass Index 30.0 Results Labs CBC and Chem 7: 08/09/21 04:21 08/09/21 04:21 Labs: Laboratory Results - last 24 hr 08/08/21 08/08/21 08/08/21 14:29 14:29 14:29 MCV 81.5 MCH 28.3 MCHC 34.7 RDW 13.2 Plt Count 351 D MPV 9.0 L Immature Gran % (Auto) 0.3 Neut % (Auto) 76.0 H Lymph % (Auto) 18.1 L Worth % (Auto) 4.8 Eos % (Auto) 0.4 Baso % (Auto) 0.4 Lymph # (Auto) 2.1 Worth # (Auto) 0.6 Eos # (Auto) 0.1 Baso # (Auto) 0.1 Abs Immat Gran (auto) 0.03 Absolute Neuts (auto) 9.0 H Absolute Nucleated RBC 0.000 Nucleated RBC % (auto) 0.0 ESR PT INR APTT Anion Gap 16 Estim Creat Clear Calc 98.1 Estimated GFR > 60 Random Glucose 124 H Lactic Acid Lactic Acid F/U @ 2Hr Calcium 9.7 D Total Bilirubin 0.8 Direct Bilirubin 0.2 AST 17 ALT 12 Alkaline Phosphatase 51 C-Reactive Protein 0.16 Total Protein 7.7 Albumin 4.3 Urine Opiates Screen Urine Fentanyl Screen Ur Barbiturates Screen Ur Phencyclidine Scrn Ur Amphetamines Screen U Benzodiazepines Scrn Urine Cocaine Screen U Marijuana (THC) Screen Ethyl Alcohol COVID-19 ([facility]) Negative COVID-19 Clin Com See Note 08/08/21 08/08/21 08/08/21 14:29 17:10 17:10 MCV MCH MCHC RDW Plt Count MPV Immature Gran % (Auto) Neut % (Auto) Lymph % (Auto) Worth % (Auto) Eos % (Auto) Baso % (Auto) Lymph # (Auto) Worth # (Auto) Eos # (Auto) Baso # (Auto) Abs Immat Gran (auto) Absolute Neuts (auto) Absolute Nucleated RBC Nucleated RBC % (auto) ESR 14 PT 12.9 INR 1.1 APTT 30.1 Anion Gap Estim Creat Clear Calc Estimated GFR Random Glucose Lactic Acid Lactic Acid F/U @ 2Hr Calcium Total Bilirubin Direct Bilirubin AST ALT Alkaline Phosphatase C-Reactive Protein Total Protein Albumin Urine Opiates Screen Urine Fentanyl Screen Ur Barbiturates Screen Ur Phencyclidine Scrn Ur Amphetamines Screen U Benzodiazepines Scrn Urine Cocaine Screen U Marijuana (THC) Screen Ethyl Alcohol < 10 COVID-19 ([facility]) COVID-19 Clin Com 08/08/21 08/08/21 08/08/21 17:10 19:37 20:13 MCV MCH MCHC RDW Plt Count MPV Immature Gran % (Auto) Neut % (Auto) Lymph % (Auto) Worth % (Auto) Eos % (Auto) Baso % (Auto) Lymph # (Auto) Worth # (Auto) Eos # (Auto) Baso # (Auto) Abs Immat Gran (auto) Absolute Neuts (auto) Absolute Nucleated RBC Nucleated RBC % (auto) ESR PT INR APTT Anion Gap Estim Creat Clear Calc Estimated GFR Random Glucose Lactic Acid 2.6 H* Lactic Acid F/U @ 2Hr 1.6 Calcium Total Bilirubin Direct Bilirubin AST ALT Alkaline Phosphatase C-Reactive Protein Total Protein Albumin Urine Opiates Screen Not Detected Urine Fentanyl Screen Not Detected Ur Barbiturates Screen Not Detected Ur Phencyclidine Scrn Not Detected Ur Amphetamines Screen Not Detected U Benzodiazepines Scrn Not Detected Urine Cocaine Screen Not Detected U Marijuana (THC) Screen Not Detected Ethyl Alcohol COVID-19 ([facility]) COVID-19 Clin Com Imaging Radiologist's Impressions: Impressions Head CT 08/08/21 17:37 IMPRESSION: 1. No evidence of acute intracranial hemorrhage or edematous territorial infarction. 2. There appears to be a single hyperattenuating cortical vein along the high left frontal lobe that may represent sequela of isolated cortical vein thrombosis in the appropriate clinical setting. Assessment and Plan (1) Acute intractable headache: Qualifiers: Headache type: unspecified Qualified Code(s): R51.9 - Headache, unspecified Status: Acute (2) Cerebral venous thrombosis of cortical vein: Status: Acute Plan 46-year-old male with no significant past medical history who presents to the hospital with complaints of headache found to have possible CVT # severe headache - cerebral vein thrombosis versus aseptic meningitis versus idiopathic intracranial hypertension - CT head as above and concern for CVT - spoke to Neurology, patient will be started on heparin GGT - will obtain MRA, and MRV in a.m. - pain control DVT prophylaxis: Heparin Quality Stroke Does the patient have a stroke diagnosis?: No VTE Prior VTE?: No VTE Risk Level:: Medical - moderate - high VTE Device Contraindication: Treatment Not Indicated VTE Drug Contraindication: N/A - Med Ordered
[2021-08-08 21:58] VITALS: BP 156/72; PULSE 83; RESP 19; O2SAT 98
[2021-08-08 22:00] VITALS: BMI 28.3
[2021-08-08] MEDS: Lactated Ringers 1,000 ML 150 ML IVCONT (22:11)
[2021-08-08] MEDS: Heparin Sodium,Porcine/1/2NS 25,000 UNIT/250 ML IV.SOLN 11.47 UNIT IVCONT (22:23)
[2021-08-08 23:25] LABS: Hematocrit 42.5 % (42.0-52.0); Hemoglobin 14.5 g/dl (14.0-18.0); Mean Corpuscular HGB Conc 34.1 g/dl (31.0-36.0); Mean Corpuscular Hemoglobin 28.5 pg (27.0-33.0); Mean Corpuscular Volume 83.5 fL (80.0-98.0); Mean Platelet Volume 9.1 fL (9.4-12.4); Platelet Count 303 X10*3/uL (160-400); Red Blood Count 5.09 X10*6/uL (4.60-5.80); Red Cell Distribution Width 13.2 % (11.0-16.0); White Blood Count 15.9 X10*3/uL (4.8-10.8)
[2021-08-09] VITALS: BP 152/77; PULSE 77; RESP 21; TEMP 37.3; O2SAT 95
[2021-08-09 00:35] LABS: INTERNATIONAL NORM RATIO 1.2 (0.9-1.1); Prothrombin Time 13.6 SEC (9.9-13.0)
[2021-08-09 00:37] LABS: D Dimer High Sensitivity 269 NG/ML
[2021-08-09 00:38] LABS: PTT Heparin Drip 33.7 SEC (53-77.9)
--- NOTE | 2021-08-09 01:14 | PC.NURSE ---
PTT Heparin drip drawn 1 hour after Heparin drip started by phlebotomy. Per Heparin drip orders, do not adjust Heparin drip rate until PTT is drawn 6 hours after heparin drip is initially started. Heparin drip is running at prescribed start rate at 14units/kg/hr at this time, will reassess per protocol at 0430 when PTT is drawn.
--- NOTE | 2021-08-09 01:30 | PC.NURSE ---
Pt remains alert and oriented x4, calm and cooperative. Pt sleeping most of care at this time. Vitals stable. 2 Iv's remain intact. Heparin drip remains running at 14 units/kg/hr, LR remains running at 150ml/hr. Report given to overscarlet Jett.
[2021-08-09 01:55] VITALS: BP 159/100; PULSE 98; RESP 15; TEMP 37.4; O2SAT 97
--- NOTE | 2021-08-09 02:20 | PC.NURSE ---
PT TO ED OVERFLOW UNIT AT 0150 IN NO ACUTE DISTRESS. STATES HE STILL HAS A HEADACHE BUT IS BETTER. HE WALKED TO BATHROOM WITH STANDBY ASSIST AND VOIDED LARGE AMOUNT OF URINE, UNMEASURED. S/P STRAIGHT CATH 1999. TAKING WATER PO. NO NAUSEA. HEPARIN DRIP INFUSING ORDERED. PTT-HD DUE AT 0430. NO SIGNS/SYMPTOMS OF BLEEDING.
[2021-08-09] MEDS: ondansetron HCL 4 MG/2 ML VIAL IVPUSH (03:15)
[2021-08-09] MEDS: Acetaminophen 325 MG TABLET 650 MG PO (03:15)
--- NOTE | 2021-08-09 04:12 | PC.NURSE ---
pt c/o headache #8/10 on pain scale. tylenol given but pt getting anxious. dr menon notified and dilaudid 1 mg iv ordered and haldol 5 mg iv ordered. will give and assess effectiveness. no chhange in nearo status. pt alert and oriented x3. follows commands appropriately.
[2021-08-09] MEDS: Haloperidol Lactate 5 MG/ML VIAL IVPUSH (04:48)
[2021-08-09] MEDS: HYDROmorphone HCl 1 MG/ML SYRINGE IVPUSH ×5 (04:48→23:01)
[2021-08-09 04:54] LABS: Basophils Percent Auto 0.1 % (0-2); Eosinophils Percent Auto 0.1 % (0-4); Hematocrit 40.7 % (42.0-52.0); Hemoglobin 13.9 g/dl (14.0-18.0); Imm Gran Abs Auto 0.05 X10*3/uL (0.00-0.03); Imm Gran Pct Auto 0.4 % (0.0-0.4); Lymphocytes Absolute Auto 2.1 X10*3/uL (1.2-4.9); Lymphocytes Percent Auto 15.2 % (20-40); MANUAL DIFF FLAG NO; Mean Corpuscular HGB Conc 34.2 g/dl (31.0-36.0); Mean Corpuscular Hemoglobin 28.8 pg (27.0-33.0); Mean Corpuscular Volume 84.3 fL (80.0-98.0); Mean Platelet Volume 9.4 fL (9.4-12.4); Monocytes Absolute Auto 0.7 X10*3/uL (0.1-1.2); Monocytes Percent Auto 5.2 % (2-11); Neutrophils Absolute Auto 10.7 x10*3/uL (2.0-8.3); Platelet Count 312 X10*3/uL (160-400); Red Blood Count 4.83 X10*6/uL (4.60-5.80); Red Cell Distribution Width 13.5 % (11.0-16.0); White Blood Count 13.6 X10*3/uL (4.8-10.8)
[2021-08-09 05:11] LABS: INTERNATIONAL NORM RATIO 1.2 (0.9-1.1); Prothrombin Time 13.8 SEC (9.9-13.0)
[2021-08-09 05:14] LABS: PTT Heparin Drip 41.7 SEC (53-77.9)
[2021-08-09 05:25] LABS: Anion Gap 14 (12-20); Blood Urea Nitrogen 12 mg/dL (9-16); Calcium 8.5 mg/dL (8.4-10.2); Carbon Dioxide 23 mmol/L (22-29); Chloride 102 mmol/L (96-108); Creatinine Clr Calc Pharmacy 130.3; Estimated Glomerular Filt Rate > 60; Glucose Random 113 mg/dL (60-115); Potassium 3.6 mmol/L (3.3-5.1); Sodium 135 mmol/L (135-145)
[2021-08-09 05:57] VITALS: BP 154/88; PULSE 80; RESP 20; O2SAT 96
[2021-08-09] MEDS: Heparin Sodium,Porcine 5,000 UNIT/ML VIAL 3300 UNIT IVPUSH (06:57)
[2021-08-09] MEDS: 0.9 % Sodium Chloride Flush 3 ML SYRINGE IVFLUSH ×3 (08:50→23:01)
--- NOTE | 2021-08-09 09:11 | MHC.CM.PN ---
PT REPORTS HE LIVES ALONE AND IS INDEPENDENT WITH CARE PT HAS NO SERVICES AND DENIES USING DME PT HAS NO HCP AND DECLINES TO COMPLETE ONE TODAY PT CONFIRMS HIS PCP IS [facility] PT IS NOT VACCINATED AGAINST COVID-19 CURRENT DC PLAN IS HOME WITH NO SERVICES PT TO ARRANGE TRANSPORT
--- NOTE | 2021-08-09 09:12 | P.CNNE_ITS ---
History of Present Illness Data of Consult Service Date: 08/09/21 Primary Care Provider: Luan Blunt MD [facility] Reason for consult: Headache with aseptic meningitis 46 years old man who was recently admitted in the hospital and was diagnosed with aseptic meningitis that presented with severe headache nausea and vomiting. He was discharged to home with Dilaudid. Apparently he stop taking Dilaudid concerned about addiction. Couple of days after his headaches became very severe with nausea and vomiting any came back to hospital. He denied any fever or chills or trauma. There was no numbness weakness speech or language difficulty or double vision or loss of vision. He did have photophobia phonophobia. Review of Systems Review of Systems: As reported in [facility] Past Medical History Medical History (Updated 08/09/21 @ 06:35 by Todd Dorsey MD) No known health problems Family History Family History (Updated 08/09/21 @ 06:34 by Todd Dorsey MD) Other No family history of coronary artery disease Surgical History Surgical History (Updated 08/09/21 @ 06:34 by Todd Dorsey MD) No pertinent past surgical history Social History Social History Household Members: None Housing: House Do you presently have visiting nurse or other home services: No Alcohol intake: never Patient Tobacco Use Status: Never used Tobacco Advance Directives: No Advance Directives Information Provided: No service: No Current occupational status: employed Meds Allergies Allergy/AdvReac Type Severity Reaction Status Date / Time No Known Allergies Allergy Verified 08/01/21 02:05 Active Medications: Current Medications Acetaminophen (Acetaminophen 325 Mg Tablet) 650 mg PO Q6H PRN PRN Reason: Pain, Mild (Pain Scale 1-3) Last Admin: 08/09/21 03:15 Dose: 650 mg Documented by: Docusate Sodium (Docusate Sodium 100 Mg Capsule) 100 mg PO DAILY PRN PRN Reason: Constipation Heparin Sodium (Porcine) (Heparin Sodium,Porcine 5,000 Unit/Ml Vial) 3,300 unit 40 unit/kg (3300 unit) IVPUSH PROTOCOL BOLUS PRN; Protocol PRN Reason: 40 unit/kg - Heparin Protocol Last Admin: 08/09/21 06:57 Dose: 3,300 unit Documented by: Heparin Sodium (Porcine) (Heparin Sodium,Porcine 5,000 Unit/Ml Vial) 6,600 unit 80 unit/kg (6600 unit) IVPUSH PROTOCOL BOLUS PRN; Protocol PRN Reason: 80 unit/kg - Heparin Protocol Hydromorphone HCl (Hydromorphone Hcl 1 Mg/Ml Syringe) 1 mg IVPUSH Q4H PRN; Protocol PRN Reason: Pain, Severe (Pain Scale 7-10) Last Admin: 08/09/21 08:50 Dose: 1 mg Documented by: Lactated Ringer's (Lr) 1,000 mls @ 150 mls/hr IVCONT .Q6H40M [facility] Last Admin: 08/09/21 06:39 Dose: Not Given Documented by: Heparin Sodium/Sodium Chloride () 25,000 unit in 250 mls @ 0 mls/hr IVCONT .Q0M [facility]; Protocol Last Titration: 08/09/21 07:03 Dose: 16 units/kg/hr, 13.1 mls/hr Documented by: Ketorolac Tromethamine (Ketorolac Tromethamine 15 Mg/Ml Vial) 30 mg IVPUSH ONCE PRN PRN Reason: Headache Last Admin: 08/08/21 20:03 Dose: 30 mg Documented by: Ondansetron HCl (Ondansetron Hcl 4 Mg/2 Ml Vial) 4 mg IVPUSH Q8H PRN PRN Reason: Nausea and Vomiting Last Admin: 08/09/21 03:15 Dose: 4 mg Documented by: Sodium Chloride (0.9 % Sodium Chloride Flush 3 Ml Syringe) 3 ml IVFSH [facility] Last Admin: 08/09/21 08:50 Dose: 3 ml Documented by: Home Medications Medication Instructions Recorded Confirmed Last Taken Type acetaminophen 325 mg tablet 650 mg PO Q6H PRN 08/01/21 08/08/21 Unknown History dzbwtmq-vnyjopwnrdxjv-hhcyzaxq 250 1 tab PO Q6H PRN 08/01/21 08/08/21 Unknown History mg-250 mg-65 mg tablet (Excedrin Migraine) multivitamin 1 tab PO DAILY 08/01/21 08/08/21 Unknown History Physical Exam Vital Signs: Vital Signs: Last Vital Signs Temp 99.3 F 08/09/21 01:55 Pulse 80 08/09/21 05:57 Resp 20 08/09/21 05:57 BP 154/88 H 08/09/21 05:57 Pulse Ox 96 08/09/21 05:57 BMI result Body Mass Index 28.3 Neuro: Other: Alert and awake with normal spontaneity of speech fluency comprehension and affect. He was in a dark room and light was uncomfortable for him. Face was symmetrical. Visual wadsworth are full. There was no focal weakness. Plantars were flexors. Affect was normal. Results Labs CBC & Chem 7: 08/09/21 04:21 08/09/21 04:21 Labs: Short CBC 08/08/21 08/08/21 08/09/21 Range/Units 14:29 23:17 04:21 WBC 11.8 H 15.9 H 13.6 H (4.8-10.8) X10*3/uL Hgb 16.4 14.5 13.9 L (14.0-18.0) g/dl Hct 47.2 42.5 40.7 L (42.0-52.0) % Plt Count 351 D 303 312 (160-400) X10*3/uL BMP 08/08/21 08/09/21 14:29 04:21 Sodium 135 135 Potassium 3.8 3.6 Chloride 102 102 Carbon Dioxide 21 L 23 BUN 15 12 Creatinine 0.97 0.71 Calcium 9.7 D 8.5 D Liver Function 08/08/21 Range/Units 14:29 Total Bilirubin 0.8 (0.0-1.0) mg/dL Direct Bilirubin 0.2 (0.0-0.5) mg/dL AST 17 (5-37) U/L ALT 12 (0-40) U/L Alkaline Phosphatase 51 (39-117) U/L Albumin 4.3 (3.5-5.0) g/dL His noncontrast head CT revealed somewhat hyperintense signal and falx and also possible left frontal cortical vein suggestive of venous thrombosis. Microbiology Microbiology Results: Microbiology 08/08/21 16:37 Blood - Venous Blood Culture - Preliminary Assessment and Plan (1) Cerebral venous thrombosis of cortical vein: Status: Acute (2) Headache: Status: Acute 46 years old man with new onset of severe headache associated with lab findings suggestive of aseptic meningitis. This time his head CT revealed findings suggestive of cortical vein thrombosis. Tentatively, he was put on anticoagulation. An MRI and MRV of brain would be needed to rule out sinus thro mbosis and make further plan. Otherwise, multiple lab tests to rule out any inflammation or inflammatory type of condition resulting in aseptic meningitis were negative. I also suggest starting him on topiramate 25 mg twice a day to see if that would help with headaches per Procedures Date of Service Date of Service: 08/09/21
--- NOTE | 2021-08-09 10:27 | PC.NURSE ---
Pt is a/o and independent. Heparin gtt infusing with no issues.Gtt increased by prior nurse to 16units/hr. Pt c/o headache, medicated per MAR. No other issues noted. Pt resting in the hospital bed lights dimmed and door closed for comfort. call dinero and belongings within reach. MRI screening form completed. Awaiting neuro consult and MRI.
[2021-08-09] MEDS: Lactated Ringers 1,000 ML 150 ML IVCONT ×2 (12:23→23:02)
--- NOTE | 2021-08-09 12:58 | HO.PM.IMPN ---
Subjective Subjective Date of Service: 08/09/21 Interval History: Seen in f/u for headache, still with signficant headche, CT head is pointing to possible venous thrombus Review of Systems headache, no fever Physical Exam Vital Signs: Vital Signs: Last Vital Signs Temp 99.3 F 08/09/21 01:55 Pulse 80 08/09/21 05:57 Resp 20 08/09/21 05:57 BP 154/88 H 08/09/21 05:57 Pulse Ox 96 08/09/21 05:57 BMI result Body Mass Index 28.3 Objective Data Active Medications Acetaminophen (Acetaminophen 325 Mg Tablet) 650 mg PO Q6H PRN PRN Reason: Pain, Mild (Pain Scale 1-3) Last Admin: 08/09/21 03:15 Dose: 650 mg Documented by: LINO Docusate Sodium (Docusate Sodium 100 Mg Capsule) 100 mg PO DAILY PRN PRN Reason: Constipation Heparin Sodium (Porcine) (Heparin Sodium,Porcine 5,000 Unit/Ml Vial) 3,300 unit 40 unit/kg (3300 unit) IVPUSH PROTOCOL BOLUS PRN; Protocol PRN Reason: 40 unit/kg - Heparin Protocol Last Admin: 08/09/21 06:57 Dose: 3,300 unit Documented by: LINO Heparin Sodium (Porcine) (Heparin Sodium,Porcine 5,000 Unit/Ml Vial) 6,600 unit 80 unit/kg (6600 unit) IVPUSH PROTOCOL BOLUS PRN; Protocol PRN Reason: 80 unit/kg - Heparin Protocol Hydromorphone HCl (Hydromorphone Hcl 1 Mg/Ml Syringe) 1 mg IVPUSH Q4H PRN; Protocol PRN Reason: Pain, Severe (Pain Scale 7-10) Last Admin: 08/09/21 08:50 Dose: 1 mg Documented by: RHODA Lactated Ringer's (Lr) 1,000 mls @ 150 mls/hr IVCONT .Q6H40M [facility] Last Admin: 08/09/21 12:23 Dose: 150 mls/hr Documented by: RHODA Heparin Sodium/Sodium Chloride () 25,000 unit in 250 mls @ 0 mls/hr IVCONT .Q0M TONI; Protocol Last Titration: 08/09/21 07:03 Dose: 16 units/kg/hr, 13.1 mls/hr Documented by: LINO Cosigned by: RIC Ketorolac Tromethamine (Ketorolac Tromethamine 15 Mg/Ml Vial) 30 mg IVPUSH ONCE PRN PRN Reason: Headache Last Admin: 08/08/21 20:03 Dose: 30 mg Documented by: SARINA Ondansetron HCl (Ondansetron Hcl 4 Mg/2 Ml Vial) 4 mg IVPUSH Q8H PRN PRN Reason: Nausea and Vomiting Last Admin: 08/09/21 03:15 Dose: 4 mg Documented by: LINO Sodium Chloride (0.9 % Sodium Chloride Flush 3 Ml Syringe) 3 ml IVFLUSH QSHIFT TONI Last Admin: 08/09/21 08:50 Dose: 3 ml Documented by: RHODA Labs CBC & Chem 7: 08/09/21 04:21 08/09/21 04:21 Labs: Laboratory Results - last 24 hr 08/08/21 08/08/21 08/08/21 14:29 14:29 14:29 MCV 81.5 MCH 28.3 MCHC 34.7 RDW 13.2 Plt Count 351 D MPV 9.0 L Immature Gran % (Auto) 0.3 Neut % (Auto) 76.0 H Lymph % (Auto) 18.1 L [place] % (Auto) 4.8 Eos % (Auto) 0.4 Baso % (Auto) 0.4 Lymph # (Auto) 2.1 [place] # (Auto) 0.6 Eos # (Auto) 0.1 Baso # (Auto) 0.1 Abs Immat Gran (auto) 0.03 Absolute Neuts (auto) 9.0 H Absolute Nucleated RBC 0.000 Nucleated RBC % (auto) 0.0 ESR PT INR APTT aPTT Heparin Protocol D-Dimer High Sensitivty Anion Gap 16 Estim Creat Clear Calc 98.1 Estimated GFR > 60 Random Glucose 124 H Lactic Acid Lactic Acid F/U @ 2Hr Calcium 9.7 D Total Bilirubin 0.8 Direct Bilirubin 0.2 AST 17 ALT 12 Alkaline Phosphatase 51 C-Reactive Protein 0.16 Total Protein 7.7 Albumin 4.3 Urine Opiates Screen Urine Fentanyl Screen Ur Barbiturates Screen Ur Phencyclidine Scrn Ur Amphetamines Screen U Benzodiazepines Scrn Urine Cocaine Screen U Marijuana (THC) Screen Ethyl Alcohol COVID-19 (KANDY) Negative COVID-19 Thubrikar Aortic Valve See Note 08/08/21 08/08/21 08/08/21 14:29 17:10 17:10 MCV MCH MCHC RDW Plt Count MPV Immature Gran % (Auto) Neut % (Auto) Lymph % (Auto) [place] % (Auto) Eos % (Auto) Baso % (Auto) Lymph # (Auto) [place] # (Auto) Eos # (Auto) Baso # (Auto) Abs Immat Gran (auto) Absolute Neuts (auto) Absolute Nucleated RBC Nucleated RBC % (auto) ESR 14 PT 12.9 INR 1.1 APTT 30.1 aPTT Heparin Protocol D-Dimer High Sensitivty Anion Gap Estim Creat Clear Calc Estimated GFR Random Glucose Lactic Acid Lactic Acid F/U @ 2Hr Calcium Total Bilirubin Direct Bilirubin AST ALT Alkaline Phosphatase C-Reactive Protein Total Protein Albumin Urine Opiates Screen Urine Fentanyl Screen Ur Barbiturates Screen Ur Phencyclidine Scrn Ur Amphetamines Screen U Benzodiazepines Scrn Urine Cocaine Screen U Marijuana (THC) Screen Ethyl Alcohol < 10 COVID-19 (KANDY) [employer]-Notifixious 08/08/21 08/08/21 08/08/21 17:10 19:37 20:13 MCV MCH MCHC RDW Plt Count MPV Immature Gran % (Auto) Neut % (Auto) Lymph % (Auto) [place] % (Auto) Eos % (Auto) Baso % (Auto) Lymph # (Auto) [place] # (Auto) Eos # (Auto) Baso # (Auto) Abs Immat Gran (auto) Absolute Neuts (auto) Absolute Nucleated RBC Nucleated RBC % (auto) ESR PT INR APTT aPTT Heparin Protocol D-Dimer High Sensitivty Anion Gap Estim Creat Clear Calc Estimated GFR Random Glucose Lactic Acid 2.6 H* Lactic Acid F/U @ 2Hr 1.6 Calcium Total Bilirubin Direct Bilirubin AST ALT Alkaline Phosphatase C-Reactive Protein Total Protein Albumin Urine Opiates Screen Not Detected Urine Fentanyl Screen Not Detected Ur Barbiturates Screen Not Detected Ur Phencyclidine Scrn Not Detected Ur Amphetamines Screen Not Detected U Benzodiazepines Scrn Not Detected Urine Cocaine Screen Not Detected U Marijuana (THC) Screen Not Detected Ethyl Alcohol COVID-19 (KANDY) COVID-Notifixious 08/08/21 08/08/21 08/09/21 23:17 23:17 04:21 MCV 83.5 84.3 MCH 28.5 28.8 MCHC 34.1 34.2 RDW 13.2 13.5 Plt Count 303 312 MPV 9.1 L 9.4 Immature Gran % (Auto) 0.4 Neut % (Auto) 79.0 H Lymph % (Auto) 15.2 L [place] % (Auto) 5.2 Eos % (Auto) 0.1 Baso % (Auto) 0.1 Lymph # (Auto) 2.1 [place] # (Auto) 0.7 Eos # (Auto) 0.0 Baso # (Auto) 0.0 Abs Immat Gran (auto) 0.05 H Absolute Neuts (auto) 10.7 H Absolute Nucleated RBC 0.000 0.000 Nucleated RBC % (auto) 0.0 0.0 ESR PT 13.6 H INR 1.2 H APTT aPTT Heparin Protocol 33.7 L D-Dimer High Sensitivty 269 Anion Gap Estim Creat Clear Calc Estimated GFR Random Glucose Lactic Acid Lactic Acid F/U @ 2Hr Calcium Total Bilirubin Direct Bilirubin AST ALT Alkaline Phosphatase C-Reactive Protein Total Protein Albumin Urine Opiates Screen Urine Fentanyl Screen Ur Barbiturates Screen Ur Phencyclidine Scrn Ur Amphetamines Screen U Benzodiazepines Scrn Urine Cocaine Screen U Marijuana (THC) Screen Ethyl Alcohol COVID-19 (KANDY) COVID-19 Clin Com 08/09/21 08/09/21 08/09/21 04:21 04:21 04:21 MCV MCH MCHC RDW Plt Count MPV Immature Gran % (Auto) Neut % (Auto) Lymph % (Auto) [place] % (Auto) Eos % (Auto) Baso % (Auto) Lymph # (Auto) [place] # (Auto) Eos # (Auto) Baso # (Auto) Abs Immat Gran (auto) Absolute Neuts (auto) Absolute Nucleated RBC Nucleated RBC % (auto) ESR PT Cancelled 13.8 H INR Cancelled 1.2 H APTT aPTT Heparin Protocol 41.7 L D D-Dimer High Sensitivty Anion Gap 14 Estim Creat Clear Calc 130.3 Estimated GFR > 60 Random Glucose 113 Lactic Acid Lactic Acid F/U @ 2Hr Calcium 8.5 D Total Bilirubin Direct Bilirubin AST ALT Alkaline Phosphatase C-Reactive Protein Total Protein Albumin Urine Opiates Screen Urine Fentanyl Screen Ur Barbiturates Screen Ur Phencyclidine Scrn Ur Amphetamines Screen U Benzodiazepines Scrn Urine Cocaine Screen U Marijuana (THC) Screen Ethyl Alcohol COVID-19 (KANDY) COVID-19 Clin Com Microbiology Microbiology Results: Microbiology 08/08/21 16:37 Blood Culture - Preliminary Blood - Venous Assessment and Plan (1) Acute intractable headache: Status: Acute Plan 46-year-old male with no significant past medical history who presents to the hospital with complaints of headache found to have possible CVT, he was admitted last week with headche and work up for meningitis and thought to have asceptic meningitis at that time #? severe headache - ? Possible cerebral vein thrombosis versus aseptic meningitis versus? idiopathic intracranial hypertension -? CT? head as above and concern for CVT -? He is started on IV heparin while awaiting MRA and MRV - Pain control ?DVT prophylaxis:? Heparin Quality Stroke Does the patient have a stroke diagnosis?: No VTE Prior VTE?: No VTE Risk Level:: Medical - moderate - high VTE Device Contraindication: Treatment Not Indicated VTE Drug Contraindication: N/A - Med Ordered
[2021-08-09 14:27] VITALS: BP 157/82; PULSE 83; RESP 18; TEMP 37.1; O2SAT 97
[2021-08-09 14:33] LABS: PTT Heparin Drip 62.9 SEC (53-77.9)
[2021-08-09] MEDS: Topiramate 25 MG TABLET PO (14:44)
[2021-08-09 19:01] VITALS: PULSE 71; RESP 20; TEMP 36.8; O2SAT 97
[2021-08-09] MEDS: Heparin Sodium,Porcine/1/2NS 25,000 UNIT/250 ML IV.SOLN 13.1 UNIT IVCONT (19:09)
[2021-08-10] VITALS: BP 152/78; PULSE 74; RESP 16; TEMP 37.1; O2SAT 95
[2021-08-10 03:17] VITALS: BP 148/78; PULSE 79; RESP 17; TEMP 37.4; O2SAT 96
[2021-08-10] MEDS: HYDROmorphone HCl 1 MG/ML SYRINGE IVPUSH ×4 (03:28→16:18)
[2021-08-10 06:04] LABS: PTT Heparin Drip 73.7 SEC (53-77.9)
[2021-08-10] MEDS: Lactated Ringers 1,000 ML 150 ML IVCONT (06:07)
[2021-08-10 07:27] VITALS: BP 178/99; PULSE 82; RESP 20; TEMP 36.8; O2SAT 96
[2021-08-10] MEDS: 0.9 % Sodium Chloride Flush 3 ML SYRINGE IVFLUSH (07:47)
[2021-08-10] MEDS: Topiramate 25 MG TABLET PO (07:48)
[2021-08-10 11:25] VITALS: BP 160/109; PULSE 74; RESP 16; TEMP 36.7; O2SAT 95
--- NOTE | 2021-08-10 12:53 | MHC.CLN ---
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
--- NOTE | 2021-08-10 13:11 | MHC.CM.PN ---
Patient has a follow up appointment with Neurology (Dr. Lacey's office)on 09/07/21 at 8:00 AM; OZIEL/Audrey has been made aware.
[2021-08-10 13:15] VITALS: BP 144/90
--- NOTE | 2021-08-10 14:44 | PM.DS ---
DS: Providers Provider Date of Service: 08/10/21 Date of admission: 08/08/21 21:36 Date of discharge: 08/10/21 Primary care physician: Luan Blunt MD Consults: 08/08/21 21:33 Consult to Neurology Routine Consulting Provider: [facility] Reason for consultation: CVT? 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 He was evaluated by ID? as well as Neurology.? No indication for antepartum medication antibiotics, felt to be possibly aseptic meningitis.? He was sent home on Dilaudid on 08/03.? The patient's mother and girlfriend at bedside state that he was taking the Dilaudid with some relief but he stop taking the medication 2 days ago because he was concerned about addiction.? He subsequently developed severe 10/10 headache all over his head, associated with some nausea no vomiting, and severe agitation.? Patient received Dilaudid, Benadryl, Toradol in the ED and is now very somnolent but arousable and unable to give much history.? He is able to follow command but unable to tell me about his symptoms. ? According to the ED physician he came in? to the ED with severe pain,? no change in vision was reported. ? On arrival to the ED patient hemodynamically stable with heart rate of 109, respiratory rate of 20, blood pressure 152/96, satting 100% on room air Labs are significant for WBC count of 13.6, hemoglobin 13.9, D-dimer of 269, lactic acid of 2.6 that resolved after IV fluids, COVID negative, no significant LFT abnormality. ? Head CT showed no evidence of acute intracranial hemorrhage or abnormalities territorial infarction but there appears to be a single? high written waiting cortical vein along the high left frontal lobe that may represent sequelae of isolated cortical vein thrombosis in the appropriate clinical setting. Headache. Patient was worked up and diagnosed with aseptic meningitis on previous admission. On this admission initial CT showed concern over cortical vein thrombosis. He was seen in consultation by Neurology who recommended brain MRI and venography of the brain. These were both obtained and confirmed a small cortical vein thrombosis with no other acute changes. He was initially started on anticoagulation with heparin. He was seen in consultation by Hematology who recommended discharge with Lovenox. He can likely be changed to oral AC after follow up with hematology. Six months of anticoagulation was recommended by neurology. Hypercoagulable workup was obtained while in the hospital and results are pending at the time of discharge. Patient has follow-up appointment with Neurology scheduled, he should follow up with Hematology as well. Neurology also recommended starting topiramate. Monitoring for signs of bleeding was discussed with the patient while he is on a blood thinner as well as avoiding NSAIDs. He should follow up with his PCP for blood pressure monitoring. Time Spent with Patient Time attestation: Total time spent providing and/or coordinating discharge services: Discharge coordination time: Greater than 30 minutes Quality: Stroke Does the patient have a stroke diagnosis?: No Physical Exam Vital Signs: Vital Signs: Last Vital Signs Temp 98.1 F 08/10/21 11:25 Pulse 74 08/10/21 11:25 Resp 16 08/10/21 11:25 BP 144/90 H 08/10/21 13:15 Pulse Ox 95 08/10/21 11:25 BMI result Body Mass Index 28.3 Const: General: cooperative, comfortable, no acute distress, alert and awake Nutritional Appearance: average body habitus Orientation/consciousness: patient oriented x3 Resp: Effort & Inspection: normal respiratory effort and able to speak in complete sentences Cardio: Rate: regular rate Heart sounds: S1 normal heart sound present and S2 normal heart sound present GI: Inspection: No distended Palpation (GI): Soft to palpation and Tenderness to palpation present (GI) Neuro: Other: grossly non-focal General: patient oriented x3 Extrem: Other: no leg edema DS: Data Data Completed and Pending Labs on day of discharge: Laboratory Results - last 24 hr 08/09/21 08/09/21 08/10/21 04:22 19:43 05:46 aPTT Heparin Protocol 60.0 73.7 D LA PTT Screen Cancelled LA Thrombin Time Cancelled dRVV Screen Cancelled dRVVT Confirm Interp Cancelled dRVVT Mixing Study Cancelled dRVVT Mix Interpret Cancelled Hexagon Phase Neutraliz Cancelled Lupus Anticoag Interp Cancelled Protein C Antigen Cancelled Protein C Activity Cancelled Protein S Activity Cancelled Total Protein S Ag Cancelled Free Protein S Antigen Cancelled Antithrombin III Ag Cancelled Antithrombin III Activ Cancelled Factor V Leiden Cancelled Factor V Leiden Interp Cancelled Preliminary micro results at discharge 08/08/21 16:37 Blood Culture - Preliminary Blood - Venous No growth after 24 hours. 08/08/21 16:37 Blood Culture - Preliminary Blood - Venous No growth after 24 hours. Discharge Plan Discharge Patient Disposition: Home, Self-Care Discharge Diagnosis: cortical vein thrombosis Referrals: Luan Blunt MD [Primary Care Provider] - 1 Week Floyd Lacey MD [Physician] - 1 Week Jared Manning MD [Physician] - 1 Week Discharge Medications: New topiramate 25 mg tablet 25 mg PO BID 30 Days Qty: 60 0RF enoxaparin 80 mg/0.8 mL Syringe 80 mg subcut Q12H 30 Days Qty: 48 0RF Continued amvaqczmuv-kvdyxwkhvlqtu-dzpz [Fioricet] 50-300-40 mg capsule 1 cap PO Q4-6H PRN (Reason: migraine headache) Qty: 10 0RF Rx Instructions: May substitute for similar drug approved by his insurance plan multivitamin Tablet 1 tab PO DAILY 0RF acetaminophen 325 mg Tablet 650 mg PO Q6H PRN (Reason: Pain) 0RF amlodipine 5 mg Tablet 5 mg PO DAILY Qty: 30 0RF Protocol: Hold for SBP< HOLD for SBP < : 90 docusate sodium 100 mg Capsule 100 mg PO BID PRN (Reason: Constipation) Qty: 30 0RF magnesium hydroxide [Milk of Magnesia] 400 mg/5 mL Suspension 30 ml PO DAILY PRN (Reason: Constipation) Qty: 355 0RF Discontinued Excedrin Migraine 250-250-65 mg Tablet 1 tab PO Q6H PRN (Reason: Migraine Headache) 0RF Discharge Orders: Discharge Order (Routine); Ordered 08/10/21 Ordered By: Audrey Morgan Activity on Discharge: As tolerated Stand Alone Forms: Patient Portal Discharge page Care Plan Goals: see below Health Concerns: cortical vein thrombosis Plan of Treatment: You will be discharged from the hospital with lovenox for anticoagulation. please take as prescribed. You have a follow up appointment for neurology scheduled for September 07 at 8:20am (first available) please call to schedule follow up appointment with the cabinetmaker maintenance. please call to schedule follow up appointment with your pcp do not take medications like motrin, ibuprofen etc (NSAIDs) while taking blood thinner monitor for signs of bleeding Assessment: see discharge summary Patient Instructions: Enoxaparin (By injection) Discharge Date/Time: 08/10/21 14:45
--- NOTE | 2021-08-10 15:09 | MHC.CM.PN ---
Patient has been medically cleared for dc to home today, self care.
[2021-08-10] MEDS: Enoxaparin Sodium 80 MG/0.8 ML SYRINGE SUBCUT (15:27)
[2021-08-10 15:50] VITALS: BP 154/94; PULSE 87; RESP 16; TEMP 36.9; O2SAT 96
--- NOTE | 2021-08-10 16:42 | P.CNHO_ITS ---
Subjective - Subjective Chief complaint: Consult for: Cortical vein thrombosis. Patient: new to practice Consult date: 08/10/21 Requesting Physician: Audrey Morgan. Primary Care Provider: Luan Blunt MD Medical Summary: DIAGNOSIS: CORTICAL VEIN THROMBOSIS. CURRENT THERAPY: IV HEPARIN. HPI - Consult Narrative Reason for consult: Consult for: Cortical vein thrombosis. Narrative: López Peters is a pleasant 46 year old gentleman, who initially presented to the hospital on 08/01 with complaints of severe headache. LP showed possible meningitis. He was initially treated with IV antibiotics. He was evaluated by ID as well as Neurology. Mchenry to be possibly aseptic meningitis. Antibiotics were discontinued and he was sent home on Dilaudid on 08/03. The patient was taking the Dilaudid with some relief but he stopped taking the medication 3 days ago because he was concerned about addiction. He subsequently developed severe 10/10 headache all over his head. This was associated with some nausea no vomiting, and severe agitation. He presented to ED. he was given Dilaudid, Benadryl, Toradol. On arrival to the ED patient hemodynamically stable with heart rate of 109, respiratory rate of 20, blood pressure 152/96, satting 100% on room air Labs were significant for WBC count of 13.6, hemoglobin 13.9, D-dimer of 269, lactic acid of 2.6 that resolved after IV fluids. COVID negative, no significant LFT abnormality. Head CT showed no evidence of acute intracranial hemorrhage or abnormalities territorial infarction but there appears to be a single cortical vein along the high left frontal lobe that may represent sequelae of isolated cortical vein thrombosis in the appropriate clinical setting. After discussion with Neurology, patient was started on heparin drip and admitted for further management He denies any significant past medical history. Review of Systems - Constitutional Reports no additional constitutional complaints, Denies fever(s), Reports weakness - Eyes Reports no additional eye complaints - ENT Reports no additional ear, nose, mouth, and throat complaints, Reports headache(s) - Cardiovascular Reports no additional cardiovascular complaints - Respiratory Reports no additional respiratory complaints - Gastrointestinal Reports no additional gastrointestinal complaints, Reports nausea - Genitourinary Genitourinary: Reports no additional male genitourinary complaints - Musculoskeletal Reports no additional musculoskeletal complaints - Integumentary/Breasts Skin/Breast: Reports no additional skin complaints - Neurologic Reports no additional neurologic complaints - Psychiatric Reports no additional psychiatric complaints - Endocrine Reports no additional endocrine complaints - Hematologic/Lymphatic Reports no additional hematologic/lymphatic complaints - Allergic/Immunologic Reports no additional allergic/immunologic complaints Oncology Screenings - ECOG Performance Status E[facility]G Performance Status: [facility] Medical History: Medical History (Last Reviewed 08/09/21 @ 21:04 by Daniel Sanchez RN) No known health problems Functional capacity: independent ambulation Patient : No Family History: Family History (Last Updated 08/09/21 @ 06:34 by Todd Dorsey MD) Other No family history of coronary artery disease Surgical History: Surgical History (Last Reviewed 08/09/21 @ 21:04 by Daniel Sanchez RN) No pertinent past surgical history Social History: Social History (Last Reviewed 08/09/21 @ 06:33 by Todd Dorsey MD) Living Situation History: Household Members: None Housing: Apartment Do you presently have visiting nurse or other home services: No Tobacco History: Patient Tobacco Use Status: Never used Tobacco 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 Current occupational status: employed Home Medications and Allergies Current Medications: Current Medications Acetaminophen (Acetaminophen 325 Mg Tablet) 650 mg PO Q6H PRN PRN Reason: Pain, Mild (Pain Scale 1-3) Last Admin: 08/09/21 03:15 Dose: 650 mg Documented by: Docusate Sodium (Docusate Sodium 100 Mg Capsule) 100 mg PO DAILY PRN PRN Reason: Constipation Enoxaparin Sodium (Enoxaparin Sodium 80 Mg/0.8 Ml Syringe) 80 mg 1 mg/kg (80 mg) SUBCUT Q12H TONI Last Admin: 08/10/21 15:27 Dose: 80 mg Documented by: Hydromorphone HCl (Hydromorphone Hcl 1 Mg/Ml Syringe) 1 mg IVPUSH Q4H PRN; Protocol PRN Reason: Pain, Severe (Pain Scale 7-10) Last Admin: 08/10/21 16:18 Dose: 1 mg Documented by: Ketorolac Tromethamine (Ketorolac Tromethamine 15 Mg/Ml Vial) 30 mg IVPUSH ONCE PRN PRN Reason: Headache Last Admin: 08/08/21 20:03 Dose: 30 mg Documented by: Ondansetron HCl (Ondansetron Hcl 4 Mg/2 Ml Vial) 4 mg IVPUSH Q8H PRN PRN Reason: Nausea and Vomiting Last Admin: 08/09/21 03:15 Dose: 4 mg Documented by: Sodium Chloride (0.9 % Sodium Chloride Flush 3 Ml Syringe) 3 ml IVFLUSH QSHIFT [facility] Last Admin: 08/10/21 07:47 Dose: 3 ml Documented by: Topiramate (Topiramate 25 Mg Tablet) 25 mg PO DAILY [facility] Last Admin: 08/10/21 07:48 Dose: 25 mg Documented by: Home Medications Medication Instructions Recorded Confirmed Type acetaminophen 325 mg tablet 650 mg PO Q6H PRN 08/01/21 08/08/21 History multivitamin 1 tab PO DAILY 08/01/21 08/08/21 History Allergies Allergy/AdvReac Type Severity Reaction Status Date / Time No Known Allergies Allergy Verified 08/01/21 02:05 Physical Exam Vital signs: Vital Signs Temp 98.4 F 08/10/21 15:50 Pulse 87 08/10/21 15:50 Resp 16 08/10/21 15:50 BP 154/94 H 08/10/21 15:50 Pulse Ox 96 08/10/21 15:50 Intake & Output 08/09/21 08/10/21 08/10/21 18:59 06:59 18:59 Intake Total 250.000 / 2994.755 2744.755 / 2994.755 757.745 / 757.745 Balance 250.000 / 2994.755 2744.755 / 2994.755 757.745 / 757.745 Intake: Intake, Oral Amount 600 / 600 Intake, IV Amount 250.000 / 2394.755 2144.755 / 2394.755 757.745 / 757.745 Heparin Sodium,Porcine/1/2NS 25 250.000 / 394.755 144.755 / 394.755 105.245 / 105.245 ,000 unit In 250 ml @ Per Protocol IVCONT .Q0M [facility] Rx#: [id number] Lactated Ringers 1,000 ml @ 150 2000 / 1999 652.5 / 652.5 mls/hr IVCONT .Q6H40M [facility] Rx#: [id number] Other: Breakfast % Eaten 100% Lunch % Eaten 100% Number of Unmeasured Voids 2 Urine Bathroom Weight 81.9 kg - Constitutional Present: mild distress - Routine HEENT Exam Head: Present: normal inspection ENT: Present: mucous membranes moist, normal exam - Routine Neck Exam Present: supple - Routine Respiratory Exam Present: CTAB - Routine Cardiovascular Exam Cardiovascular: Present: RRR, S1, S2 - Routine Abdominal Exam Present: normal bowel sounds, nontender - Routine Extremities Exam Present: nontender - Routine Skin Exam Present: intact - Routine Neurological Exam Present: alert, oriented X3, normal speech - Detailed Neurological Exam: Coma Scale Eye Opening: Spontaneous (4) Verbal Response: Oriented (5) - Routine Psychiatric Exam Present: normal mood Hem/Onc Consult Result - Labs CBC & Chem 7: 08/09/21 04:21 08/09/21 04:21 Assessment and Plan Patient Active problem list reviewed?: Yes (1) Cerebral venous thrombosis of cortical vein Status: Acute Assessment and plan: 46 years old man with new onset of severe headache associated with lab findings suggestive of aseptic meningitis. His head CT revealed findings suggestive of cortical vein thrombosis. An MRI was done yesterday which revealed: Findings support the likelihood of a small cortical vein thrombosis over the left cerebral convexity near the vertex. MRV of brain was done: Findings support the likelihood of a small cortical vein thrombosis over the left cerebral convexity near the vertex. Tentatively, he was put on anticoagulation. He was also started on topiramate 25 mg twice a day to see if that would help with headaches. The cortical vein thrombosis is likely related to recent viral meningitis. Differential diagnosis includes: Underlying hypercoagulable state. PLAN: Will switch him over to Lovenox 80 mg subQ b.i.d. for now. Will later on convert him over to Xarelto, for maintenance. Will proceed with the hypercoagulable workup as an outpatient. Will continue anticoagulation for about 6 months. Will follow-up on his imaging and then decide about the exact duration. His girlfriend has learned how to do the Lovenox at home. He may be going home later today. I will follow-up as an outpatient. Thank you, Cc: - Time Spent With Patient Time Spent with Patient (in minutes): 35
[2021-08-11 15:16] LABS: Cardiolipin IgG Ab <2.0 GPL-U/mL; Cardiolipin IgM Ab <2.0 MPL-U/mL
[2021-08-14 20:16] LABS: Homocysteine 6.3 umol/L (<11.4)
== END 2021-08-10 14:45 | disposition home or self-care (01) | DRG 92 ==
LOC: HO.ED 20:45 → HO.EDOVER 22:19 → HO.IMC 08-09 12:55
PROVIDERS: Internal Medicine; Internal Medicine Medical Oncology; Admitting Provider Internal Medicine; Emergency Provider Emergency Medicine Emergency Medical Services; PCP Internal Medicine; Visit Provider Physician Assistant Medical
DX: I67.6 Nonpyogenic thrombosis of intracranial venous system (principal); D68.59 Other primary thrombophilia; G09 Sequelae of inflammatory diseases of central nervous system; Z20.822 Contact with and (suspected) exposure to COVID-19; Z79.899 Other long term (current) drug therapy
CPT/HCPCS: 36415; 70450; 70546; 71045; 80048; 80076; 80307; 81240; 81241; 82077; 83090; 83605; 85025; 85027; 85300; 85301; 85302; 85303; 85305; 85306; 85379; 85597; 85610; 85613; 85652; 85730; 86140; 86147; 87040; 87635; 96361; 96374; 96375; 96376; 99285; A9585; J1170; J1200; J1650; J1790; J1885; J2405; J2765

== ENCOUNTER 2021-08-11 23:59 | Inpatient (IN) | payer OTHER, SELFPAY ==
--- NOTE | ~2021-08-11 | CT_ITS ---
EXAMINATION: CT HEAD WITHOUT CONTRAST CLINICAL INFORMATION: Aseptic meningitis, vein thrombosis COMPARISON: MRI 08/09/2021, CT 08/08/2021 TECHNIQUE: Contiguous axial imaging was performed from the skull base to vertex without intravenous administration of contrast. This CT examination was performed using dose optimization techniques as appropriate, variously including the following: *Automated exposure control *Adjustment of mA and/or kV according to patient size (this includes techniques or standardized protocols for targeted exams where dose is matched to indication/reason for exam; i.e. extremities or head) *Use of iterative reconstruction technique DLP: 703 mGy-cm FINDINGS: There is no evidence of acute intracranial hemorrhage or territorial infarction. No abnormal mass effect or midline shift is seen. Mcclure to white matter differentiation is well preserved. No extra-axial fluid collections are identified. The ventricles are normal in size. Previously identified hyperdense cortical vein along the high left frontal lobe appears less conspicuous currently. There is mild periventricular white matter hypoattenuation consistent favored to reflect chronic small vessel ischemic disease. The osseous structures and soft tissues are normal. The mastoid air cells and visualized portions of the paranasal sinuses are well aerated. CT/CT head/brain wo con IMPRESSION: No new acute intracranial pathology. Previously identified hyperdense cortical vein along the high left frontal lobe appears less conspicuous currently.
--- NOTE | ~2021-08-11 | FL_ITS ---
EXAMINATION: XR LUMBAR PUNCTURE CLINICAL INFORMATION: Neck stiffness and headache. COMPARISON: None TECHNIQUE: Following explaining fluoroscopy-guided lumbar puncture procedure, benefits and risk, a written consent was obtained. Patient was placed prone on fluoroscopy table and low back area was cleaned and draped in usual sterile manner. 1% lidocaine was injected at the marked site overlying the L4-L5 disc level. A 22-gauge spinal needle was advanced from the skin in a paraspinal fashion intrathecally at the L4-L5 disc level. After removing the stylet observing fluid return, patient was quickly placed in left lateral decubitus view and opening CSF pressure was obtained. Fluid was then collected in 4 test tubes. Postprocedure stylet was reintroduced into the needle and the entire needle removed. Complete hemostasis achieved at puncture site. Sterile dressing was applied postprocedure. FINDINGS: The opening CSF pressure is elevated measuring 38 cm of water. Approximately 13.5 mL of clear CSF fluid was collected in the testes and sent to lab as per referring physician's orders. FLUOROSCOPY TIME: 0.6 minutes DOSE AREA PRODUCT: 9.471 uGy-m2 (microgray-meter squared) FL/FL guided lumbar puncture LP IMPRESSION: Successful fluoroscopy-guided lumbar puncture performed at the L4-L5 disc level. Elevated opening CSF pressure of 38 cm of water. The CSF is clear.
[2021-08-12] VITALS (8 sets, daily range): BP systolic 129–155; BP diastolic 82–97; PULSE 70–109; RESP 16–18; TEMP 36.2–36.9; O2SAT 96–99
--- NOTE | 2021-08-12 02:16 | ED_ITS ---
HPI - Headache General Chief Complaint: Headache Stated Complaint: neck pain, migraine Time Seen by Provider: 08/12/21 01:59 Source: patient Mode of arrival: ambulatory Limitations: no limitations History of Present Illness HPI Narrative: patient comes to the emergency room complaining now chronic headache. Patient was recently discharged from the hospital twice, once after being diagnosed with aseptic meningitis, 2nd time after being diagnosed with small cortical vein thrombosis. Patient is currently on Lovenox at home. other than headache, patient states that he has no other neurological deficits/ complaints. Patient tried taking Dilaudid at home for the headache but it is not helping. Patient is also taking topiramate Related Data Home Medications Medication Instructions Recorded Confirmed acetaminophen 325 mg tablet 650 mg PO Q6H PRN 08/01/21 08/08/21 multivitamin 1 tab PO DAILY 08/01/21 08/08/21 Previous Rx's Medication Instructions Recorded lonjcckers-eptfpdeyxsndw-eqlhjzek 1 cap PO Q4-6H PRN #10 cap 07/31/21 50 mg-300 mg-40 mg capsule (Fioricet) amlodipine 5 mg tablet 5 mg PO DAILY #30 tab 08/03/21 docusate sodium 100 mg capsule 100 mg PO BID PRN #30 cap 08/03/21 magnesium hydroxide 400 mg/5 mL 30 ml PO DAILY PRN #355 ml 08/03/21 oral suspension (Milk of Magnesia) enoxaparin 80 mg/0.8 mL 80 mg (0.8 mL) SUBCUT Q12H 30 Days 08/10/21 subcutaneous syringe #48 ml topiramate 25 mg tablet 25 mg PO BID 30 Days #60 tab 08/10/21 Allergies Allergy/AdvReac Type Severity Reaction Status Date / Time No Known Allergies Allergy Verified 08/12/21 00:17 Review of Systems Review of Systems: Constitutional : No Weight loss, No Fever, No Chills, No Night Sweats, No Fatigue, No Malaise ENT/Mouth : No Hearing loss, No Ear Pain, No Nasal Congestion, No Sinus Pain, No Hoarseness, No sore throat, No Rhinorrhea, No Swallowing Difficulty Eyes: No Eye Pain, No Swelling, No Redness, No Foreign Body, No Discharge, No Vision Changes Cardiovascular : No Chest Pain, No SOB, No Dyspnea on Exertion, No Orthopnea, No Edema, No Palpitations Respiratory : No Cough, No Sputum, No Wheezing, No Smoke Exposure, No Dyspnea Gastrointestinal : No Nausea, No Vomiting, No Diarrhea, No Constipation, No abdominal Pain, No Hematochezia, No Melena Genitourinary : no irregular bleeding, No Dysuria, No Urinary Frequency, No Hematuria, No Urinary Incontinence, No Urgency, No Flank Pain, No Urinary Flow Changes, No Hesitancy Musculoskeletal : No joint pain, No Myalgias, No Joint Swelling Skin : No Skin Lesions, No rash Neuro : No Weakness, No Numbness, No Paresthesias, No Loss of Consciousness, No Dizziness, complaining of headache Psych : No Anxiety/Panic, No Depression, No SI/HI/AH/VH, No Social Issues, Heme/Lymph: No Bruising, No Bleeding,No Lymphadenopathy Endocrine : No Polyuria, No Polydipsia, No Temperature Intolerance [facility] Past Medical History Medical History (Updated 08/12/21 @ 03:58 by Mary Tucker MD) Aseptic meningitis Surgical History (Updated 08/10/21 @ 16:55 by Jared Manning MD) No pertinent past surgical history Family History Family History (Updated 08/09/21 @ 06:34 by Todd Dorsey MD) Other No family history of coronary artery disease Social History Social History Household Members: None Housing: Apartment Do you presently have visiting nurse or other home services: No Alcohol intake: never Patient Tobacco Use Status: Never used Tobacco Advance Directives: No Advance Directives Information Provided: Yes service: No Current occupational status: employed Physical Exam Vital Signs: Vital Signs: Last Vital Signs Temp 98.2 F 08/12/21 00:15 Pulse 109 H 08/12/21 00:15 Resp 16 08/12/21 02:48 BP 131/97 H 08/12/21 00:15 Pulse Ox 99 08/12/21 00:15 BMI result Body Mass Index 30.0 Const: Other: Appearance: Alert. Oriented X3. No acute distress. Well-appearing/ not toxic Eyes: Pupils equal, round and reactive to light. ENT: Pharynx normal. Neck: Normal inspection. Neck supple. No lymph nodes noted. No crepitus. patient is able to flex and extend the neck, with mildly decreased range of motion, mild neck stiffness, per patient improving from the last week CVS: Normal heart rate and rhythm. Pulses normal. Normal S1 and S2 Respiratory: No respiratory distress. Breath sounds normal. No Wheezing. No rales Abdomen: Soft and nontender. No rigidity. No distention. good BS x4 Skin: Skin warm and dry. Normal skin color. Normal skin turgor. Extremities: No lower extremity edema. No Lacerations. No Rash Neuro: Oriented X 3. No motor deficit. No sensory deficit. Moving all extermities. No slurred speech. CN 2 through 12 grossly intact. Patient ambulatory with steady gait Course Course Course Narrative: overall the patient's physical exam is improved and the last time I saw the patient, bacterial meningitis not suspected. patient is being admitted for intractable headache patient given IV fluids and Dilaudid. Head CT shows no acute intracranial pathology, seems to have a slight improvement than the last CT MDM - Headache Lab Data Result diagrams: 08/12/21 02:35 08/12/21 02:35 Labs: Lab Results 08/12/21 08/12/21 08/12/21 Range/Units 02:35 02:35 02:35 WBC 18.5 H (4.8-10.8) X10*3/uL RBC 5.57 (4.60-5.80) X10*6/uL Hgb 15.8 (14.0-18.0) g/dl Hct 46.5 (42.0-52.0) % MCV 83.5 (80.0-98.0) fL MCH 28.4 (27.0-33.0) pg MCHC 34.0 (31.0-36.0) g/dl RDW 13.4 (11.0-16.0) % Plt Count 339 (160-400) X10*3/uL MPV 9.2 L (9.4-12.4) fL Immature Gran % (Auto) 0.5 H (0.0-0.4) % Neut % (Auto) 79.1 H (45-73) % Lymph % (Auto) 15.7 L (20-40) % Hamblen % (Auto) 4.2 (2-11) % Eos % (Auto) 0.2 (0-4) % Baso % (Auto) 0.3 (0-2) % Lymph # (Auto) 2.9 (1.2-4.9) X10*3/uL Hamblen # (Auto) 0.8 (0.1-1.2) X10*3/uL Eos # (Auto) 0.0 (0.0-0.4) X10*3/uL Baso # (Auto) 0.1 (0.0-0.2) X10*3/uL Abs Immat Gran (auto) 0.10 H (0.00-0.03) X10*3/uL Absolute Neuts (auto) 14.6 H (2.0-8.3) x10*3/uL Absolute Nucleated RBC 0.000 (0.0-0.012) X10*3/uL Nucleated RBC % (auto) 0.0 (0.0-0.2) /100WBC PT (9.9-13.0) SEC INR (0.9-1.1) APTT (24.1-38.0) SEC Sodium 135 (135-145) mmol/L Potassium 4.0 (3.3-5.1) mmol/L Chloride 101 (96-108) mmol/L Carbon Dioxide 23 (22-29) mmol/L Anion Gap 15 (12-20) BUN 18 H (9-16) mg/dL Creatinine 1.02 (0.5-1.4) mg/dL Estim Creat Clear Calc 93.3 Estimated GFR > 60 Random Glucose 119 H (60-115) mg/dL Calcium 10.1 D (8.4-10.2) mg/dL Total Bilirubin 0.7 (0.0-1.0) mg/dL Direct Bilirubin 0.3 (0.0-0.5) mg/dL AST 15 (5-37) U/L ALT 14 (0-40) U/L Alkaline Phosphatase 51 (39-117) U/L Total Protein 7.5 (6.5-8.0) g/dL Albumin 4.3 (3.5-5.0) g/dL COVID-19 ([facility]) Negative (Negative) COVID-19 Clin Com See Note 08/12/21 Range/Units 02:35 WBC (4.8-10.8) X10*3/uL RBC (4.60-5.80) X10*6/uL Hgb (14.0-18.0) g/dl Hct (42.0-52.0) % MCV (80.0-98.0) fL MCH (27.0-33.0) pg MCHC (31.0-36.0) g/dl RDW (11.0-16.0) % Plt Count (160-400) X10*3/uL MPV (9.4-12.4) fL Immature Gran % (Auto) (0.0-0.4) % Neut % (Auto) (45-73) % Lymph % (Auto) (20-40) % Hamblen % (Auto) (2-11) % Eos % (Auto) (0-4) % Baso % (Auto) (0-2) % Lymph # (Auto) (1.2-4.9) X10*3/uL Hamblen # (Auto) (0.1-1.2) X10*3/uL Eos # (Auto) (0.0-0.4) X10*3/uL Baso # (Auto) (0.0-0.2) X10*3/uL Abs Immat Gran (auto) (0.00-0.03) X10*3/uL Absolute Neuts (auto) (2.0-8.3) x10*3/uL Absolute Nucleated RBC (0.0-0.012) X10*3/uL Nucleated RBC % (auto) (0.0-0.2) /100WBC PT 13.7 H (9.9-13.0) SEC INR 1.2 H (0.9-1.1) APTT 40.2 H D (24.1-38.0) SEC Sodium (135-145) mmol/L Potassium (3.3-5.1) mmol/L Chloride (96-108) mmol/L Carbon Dioxide (22-29) mmol/L Anion Gap (12-20) BUN (9-16) mg/dL Creatinine (0.5-1.4) mg/dL Estim Creat Clear Calc Estimated GFR Random Glucose (60-115) mg/dL Calcium (8.4-10.2) mg/dL Total Bilirubin (0.0-1.0) mg/dL Direct Bilirubin (0.0-0.5) mg/dL AST (5-37) U/L ALT (0-40) U/L Alkaline Phosphatase (39-117) U/L Total Protein (6.5-8.0) g/dL Albumin (3.5-5.0) g/dL COVID-19 ([facility]) (Negative) COVID-19 Clin Com Imaging Data CT scan - head: Radiologist's impression: FINDINGS: There is no evidence of acute intracranial hemorrhage or territorial infarction. No abnormal mass effect or midline shift is seen. Mcclure to white matter differentiation is well preserved. No extra-axial fluid collections are identified. The ventricles are normal in size. Previously identified hyperdense cortical vein along the high left frontal lobe appears less conspicuous currently. There is mild periventricular white matter hypoattenuation consistent favored to reflect chronic small vessel ischemic disease. The osseous structures and soft tissues are normal. The mastoid air cells and visualized portions of the paranasal sinuses are well aerated. ? CT/CT head/brain wo con IMPRESSION: No new acute intracranial pathology. Previously identified hyperdense cortical vein along the high left frontal lobe appears less conspicuous currently. Discharge Plan Discharge Clinical Impression: Acute intractable headache Patient Disposition: Admitted As Inpatient Prescriptions: No Action mbyzzexdxn-csglbfnpgschk-vmxd [Fioricet] 50-300-40 mg capsule 1 cap PO Q4-6H PRN (Reason: migraine headache) Qty: 10 0RF Rx Instructions: May substitute for similar drug approved by his insurance plan multivitamin Tablet 1 tab PO DAILY 0RF acetaminophen 325 mg Tablet 650 mg PO Q6H PRN (Reason: Pain) 0RF amlodipine 5 mg Tablet 5 mg PO DAILY Qty: 30 0RF Protocol: Hold for SBP< HOLD for SBP < : 90 docusate sodium 100 mg Capsule 100 mg PO BID PRN (Reason: Constipation) Qty: 30 0RF magnesium hydroxide [Milk of Magnesia] 400 mg/5 mL Suspension 30 ml PO DAILY PRN (Reason: Constipation) Qty: 355 0RF topiramate 25 mg tablet 25 mg PO BID 30 Days Qty: 60 0RF enoxaparin 80 mg/0.8 mL Syringe 80 mg subcut Q12H 30 Days Qty: 48 0RF
[2021-08-12 02:41] LABS: MANUAL DIFF FLAG NO
[2021-08-12 02:42] LABS: Basophils Absolute Auto 0.1 X10*3/uL (0.0-0.2); Basophils Percent Auto 0.3 % (0-2); Eosinophils Percent Auto 0.2 % (0-4); Hematocrit 46.5 % (42.0-52.0); Hemoglobin 15.8 g/dl (14.0-18.0); Imm Gran Pct Auto 0.5 % (0.0-0.4); Lymphocytes Absolute Auto 2.9 X10*3/uL (1.2-4.9); Lymphocytes Percent Auto 15.7 % (20-40); Mean Corpuscular Hemoglobin 28.4 pg (27.0-33.0); Mean Corpuscular Volume 83.5 fL (80.0-98.0); Mean Platelet Volume 9.2 fL (9.4-12.4); Monocytes Absolute Auto 0.8 X10*3/uL (0.1-1.2); Monocytes Percent Auto 4.2 % (2-11); Neutrophils Absolute Auto 14.6 x10*3/uL (2.0-8.3); Neutrophils Percent Auto 79.1 % (45-73); Platelet Count 339 X10*3/uL (160-400); Red Blood Count 5.57 X10*6/uL (4.60-5.80); Red Cell Distribution Width 13.4 % (11.0-16.0); White Blood Count 18.5 X10*3/uL (4.8-10.8)
[2021-08-12 02:48] LABS: INTERNATIONAL NORM RATIO 1.2 (0.9-1.1); Prothrombin Time 13.7 SEC (9.9-13.0)
[2021-08-12] MEDS: HYDROmorphone HCl 1 MG/ML SYRINGE IVPUSH (02:48)
[2021-08-12 02:51] LABS: Partial Thromboplastin Time 40.2 SEC (24.1-38.0)
[2021-08-12] MEDS: 0.9 % Sodium Chloride 1,000 ML 999 ML IVCONT (02:52)
[2021-08-12 02:54] LABS: COVID-19 Test Negative (Negative)
[2021-08-12 03:23] LABS: Alanine Aminotransferase 14 U/L (0-40); Albumin Level 4.3 g/dL (3.5-5.0); Alkaline Phosphatase 51 U/L (39-117); Anion Gap 15 (12-20); Aspartate Amino Transferase 15 U/L (5-37); Bilirubin Direct 0.3 mg/dL (0.0-0.5); Bilirubin Total 0.7 mg/dL (0.0-1.0); Blood Urea Nitrogen 18 mg/dL (9-16); Calcium 10.1 mg/dL (8.4-10.2); Carbon Dioxide 23 mmol/L (22-29); Chloride 101 mmol/L (96-108); Creatinine Clr Calc Pharmacy 93.3; Estimated Glomerular Filt Rate > 60; Glucose Random 119 mg/dL (60-115); Sodium 135 mmol/L (135-145); Total Protein 7.5 g/dL (6.5-8.0)
--- NOTE | 2021-08-12 07:29 | PM.IMHP ---
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 This diagnosis was confirmed with brain MRI and venography which showed a small cortical vein thrombosis. He was to follow-up with Hematology outpatient for oral anticoagulation. Patient returns today stating that he had severe headache not relieved with the Dilaudid he had a home or fiorcet. He denies any numbness, tingling, no weakness in arms or legs, no chest pain or shortness of breath, no abdominal pain nausea or vomiting, no diarrhea constipation, no urinary symptoms and no lower extremity edema. on arrival to the ED patient hemodynamically stable no significant abnormal vitals Labs are significant for WBC count of 18.5 INR of 1.2, Head CT showed no new acute intracranial pathology. Previously identified hyperdense cortical vein along the high left frontal lobe appears less conspicuous currently patient will be admitted for pain control Review of Systems Review of Systems: Yes all other systems are reviewed and are negative [facility] Medical History Aseptic meningitis Family History Other No family history of coronary artery disease Surgical History No pertinent past surgical history Social History Household Members: None Housing: Apartment Do you presently have visiting nurse or other home services: No Alcohol intake: never Patient Tobacco Use Status: Never used Tobacco Advance Directives: No Advance Directives Information Provided: Yes service: No Current occupational status: employed Meds Allergies Allergy/AdvReac Type Severity Reaction Status Date / Time No Known Allergies Allergy Verified 08/12/21 00:17 Active Medications: Current Medications Acetaminophen (Acetaminophen 325 Mg Tablet) 650 mg PO Q6H PRN PRN Reason: Pain, Mild (Pain Scale 1-3) Amlodipine Besylate (Amlodipine Besylate 5 Mg Tablet) 5 mg PO DAILY TONI; Protocol Docusate Sodium (Docusate Sodium 100 Mg Capsule) 100 mg PO BID PRN PRN Reason: Constipation Enoxaparin Sodium (Enoxaparin Sodium 80 Mg/0.8 Ml Syringe) 80 mg SUBCUT Q12H [facility] Magnesium Hydroxide (Milk Of Magnesia 30 Ml Oral.Susp) 30 ml PO DAILY PRN PRN Reason: Constipation Ondansetron HCl (Ondansetron Hcl 4 Mg/2 Ml Vial) 4 mg IVPUSH Q8H PRN PRN Reason: Nausea and Vomiting Sodium Chloride (0.9 % Sodium Chloride Flush 3 Ml Syringe) 3 ml IVFLUSH QSHIFT [facility] Topiramate (Topiramate 25 Mg Tablet) 25 mg PO BID [facility] Home Medications Medication Instructions Recorded Confirmed Last Taken Type acetaminophen 325 mg tablet 650 mg PO Q6H PRN 08/01/21 08/12/21 Unknown History multivitamin 1 tab PO DAILY 08/01/21 08/08/21 1 Day Ago History ~08/11/21 sildenafil 100 mg tablet 1 tab PO DAILY 08/12/21 08/12/21 Unknown History Physical Exam Vital Signs and Narrative: Vital Signs: Last Vital Signs Temp 98.4 F 08/12/21 04:18 Pulse 97 08/12/21 04:18 Resp 16 08/12/21 04:18 BP 129/90 H 08/12/21 04:18 Pulse Ox 98 08/12/21 04:18 BMI result Body Mass Index 30.0 Const: General: cooperative and no acute distress Orientation/consciousness: patient oriented x3 Eyes: General: appearance normal, both eyes and all related structures Pupils: Equal, round and reactive pupils present Resp: Effort & Inspection: normal respiratory effort Auscultation: clear to auscultation bilaterally Cardio: Rate: regular rate Rhythm: regular rhythm GI: Palpation (GI): Soft to palpation Auscultation: normal bowel sounds Skin: General skin exam: no rashes or lesions noted Neuro: General: patient oriented x3 Cranial nerves: Yes Equal, round and reactive pupils present Cognition (Neuro): normal cognition Extrem: General: Yes normal to inspection and Yes no pedal edema Results Labs CBC and Chem 7: 08/12/21 02:35 08/12/21 02:35 Labs: Laboratory Results - last 24 hr 08/12/21 08/12/21 08/12/21 02:35 02:35 02:35 MCV 83.5 MCH 28.4 MCHC 34.0 RDW 13.4 Plt Count 339 MPV 9.2 L Immature Gran % (Auto) 0.5 H Neut % (Auto) 79.1 H Lymph % (Auto) 15.7 L [place] % (Auto) 4.2 Eos % (Auto) 0.2 Baso % (Auto) 0.3 Lymph # (Auto) 2.9 [place] # (Auto) 0.8 Eos # (Auto) 0.0 Baso # (Auto) 0.1 Abs Immat Gran (auto) 0.10 H Absolute Neuts (auto) 14.6 H Absolute Nucleated RBC 0.000 Nucleated RBC % (auto) 0.0 PT INR APTT Anion Gap 15 Estim Creat Clear Calc 93.3 Estimated GFR > 60 Random Glucose 119 H Calcium 10.1 D Total Bilirubin 0.7 Direct Bilirubin 0.3 AST 15 ALT 14 Alkaline Phosphatase 51 Total Protein 7.5 Albumin 4.3 COVID-19 ([place]) Negative COVID-19 Clin Com See Note 08/12/21 02:35 MCV MCH MCHC RDW Plt Count MPV Immature Gran % (Auto) Neut % (Auto) Lymph % (Auto) [place] % (Auto) Eos % (Auto) Baso % (Auto) Lymph # (Auto) [place] # (Auto) Eos # (Auto) Baso # (Auto) Abs Immat Gran (auto) Absolute Neuts (auto) Absolute Nucleated RBC Nucleated RBC % (auto) PT 13.7 H INR 1.2 H APTT 40.2 H D Anion Gap Estim Creat Clear Calc Estimated GFR Random Glucose Calcium Total Bilirubin Direct Bilirubin AST ALT Alkaline Phosphatase Total Protein Albumin COVID-19 ([facility]) COVID-19 Clin Com Imaging Radiologist's Impressions: Impressions Head CT 08/12/21 03:03 IMPRESSION: No new acute intracranial pathology. Previously identified hyperdense cortical vein along the high left frontal lobe appears less conspicuous currently. Assessment and Plan (1) Cerebral venous thrombosis of cortical vein: Status: Acute (2) Acute intractable headache: Status: Acute Plan 46-year-old male with recently diagnosed with cerebral venous thrombosis of cortical vein presents with intractable headache # intractable headache - likely secondary to CVT - will tx with morphine - zofran prn # CVT - will continue lovenox dvt ppx: lovenox Quality Stroke Does the patient have a stroke diagnosis?: No VTE Prior VTE?: No VTE Risk Level:: Medical - low VTE Device Contraindication: Treatment Not Indicated VTE Drug Contraindication: N/A - Med Ordered
--- NOTE | 2021-08-12 07:30 | PHA.MEDREC ---
Pharmacy Consult ? Medication Reconciliation Nursing has completed the medication reconciliation and Pharmacy has reviewed.
[2021-08-12] MEDS: Enoxaparin Sodium 80 MG/0.8 ML SYRINGE SUBCUT ×2 (08:51→21:54)
[2021-08-12] MEDS: Topiramate 25 MG TABLET PO ×2 (08:51→21:54)
[2021-08-12] MEDS: amLODIPine Besylate 5 MG TABLET PO (08:51)
[2021-08-12] MEDS: 0.9 % Sodium Chloride Flush 3 ML SYRINGE IVFLUSH ×2 (08:51→21:55)
--- NOTE | 2021-08-12 09:33 | MHC.CM.PN ---
PT LIVES ALONE AND IS FULLY INDEPENDENT WITH CARE AND MOBILITY PT HAS NO DME AND NO HOME SERVICES. PTS PCP IS [facility] PT DOES NOT HAVE A HCP AND DECLINES TO COMPLETE ONE AT THIS TIME PT IS NOT VACCINATED AGAINST COVID-19 CURRENT DC PLAN IS HOME WITH NO SERVICES PT TO ARRANGE TRANSPORTATION
[2021-08-12] MEDS: Morphine Sulfate 4 MG/ML CARTRIDGE IVPUSH ×3 (13:50→21:54)
--- NOTE | 2021-08-12 15:37 | HO.PM.IMPN ---
Subjective Subjective Date of Service: 08/12/21 Interval History: seen and examined this morning ongoing headache, occipital region and sensitivity to light; some neck pain that has been present since initial hospitalization, denies any worsening of neck pain Review of Systems Review of Systems: Yes all other systems are reviewed and are negative Constitutional Constitutional: Denies chills, Denies fever(s) and Reports headache(s) Eyes Eyes: Denies change in vision ENT Ears, Nose, Mouth, and Throat: Reports headache(s) Cardiovascular Cardiovascular: Denies chest pain, Denies palpitations and Denies dyspnea Respiratory Respiratory: Denies cough and Denies dyspnea Gastrointestinal Gastrointestinal: Denies abdominal pain, Denies diarrhea, Denies nausea and Denies vomiting Neurologic Neurologic: Reports headache(s) Endocrine Endocrine: Denies palpitations Physical Exam Vital Signs: Vital Signs: Last Vital Signs Temp 98.4 F 08/12/21 04:18 Pulse 70 08/12/21 08:54 Resp 16 08/12/21 08:54 BP 139/91 H 08/12/21 08:54 Pulse Ox 98 08/12/21 08:54 BMI result Body Mass Index 30.0 Const: General: healthy appearing, comfortable, alert and awake Nutritional Appearance: average body habitus Orientation/consciousness: patient oriented x3 Eyes: Pupils: Equal, round and reactive pupils present Resp: Effort & Inspection: normal respiratory effort and able to speak in complete sentences Cardio: Rate: regular rate Heart sounds: S1 normal heart sound present and S2 normal heart sound present GI: Inspection: No distended Palpation (GI): Soft to palpation and nontender Neuro: Other: some stiffness of neck present, pt reports decrease from prior General: patient oriented x3 and no focal motor deficits Cranial nerves: Yes Equal, round and reactive pupils present, Yes Normal facial strength present and Yes Midline tongue present Motor exam (neuro): 5/5 motor strength present throughout and Pronator motor function not present Extrem: Other: no leg edema Objective Data Active Medications Acetaminophen (Acetaminophen 325 Mg Tablet) 650 mg PO Q6H PRN PRN Reason: Pain, Mild (Pain Scale 1-3) Amlodipine Besylate (Amlodipine Besylate 5 Mg Tablet) 5 mg PO DAILY TONI; Protocol Last Admin: 08/12/21 08:51 Dose: 5 mg Documented by: [place] Docusate Sodium (Docusate Sodium 100 Mg Capsule) 100 mg PO BID PRN PRN Reason: Constipation Enoxaparin Sodium (Enoxaparin Sodium 80 Mg/0.8 Ml Syringe) 80 mg SUBCUT Q12H [facility] Last Admin: 08/12/21 08:51 Dose: 80 mg Documented by: [place] Magnesium Hydroxide (Milk Of Magnesia 30 Ml Oral.Susp) 30 ml PO DAILY PRN PRN Reason: Constipation Morphine Sulfate (Morphine Sulfate 4 Mg/Ml Cartridge) 4 mg IVPUSH Q4H PRN; Protocol PRN Reason: Pain, Severe (Pain Scale 7-10) Last Admin: 08/12/21 13:50 Dose: 4 mg Documented by: [place] Ondansetron HCl (Ondansetron Hcl 4 Mg/2 Ml Vial) 4 mg IVPUSH Q8H PRN PRN Reason: Nausea and Vomiting Sodium Chloride (0.9 % Sodium Chloride Flush 3 Ml Syringe) 3 ml IVFLUSH QSHIFT [facility] Last Admin: 08/12/21 08:51 Dose: 3 ml Documented by: [place] Topiramate (Topiramate 25 Mg Tablet) 25 mg PO BID [facility] Last Admin: 08/12/21 08:51 Dose: 25 mg Documented by: [place] Labs CBC & Chem 7: 08/12/21 02:35 08/12/21 02:35 Labs: Laboratory Results - last 24 hr 08/12/21 08/12/21 08/12/21 02:35 02:35 02:35 MCV 83.5 MCH 28.4 MCHC 34.0 RDW 13.4 Plt Count 339 MPV 9.2 L Immature Gran % (Auto) 0.5 H Neut % (Auto) 79.1 H Lymph % (Auto) 15.7 L [place] % (Auto) 4.2 Eos % (Auto) 0.2 Baso % (Auto) 0.3 Lymph # (Auto) 2.9 [place] # (Auto) 0.8 Eos # (Auto) 0.0 Baso # (Auto) 0.1 Abs Immat Gran (auto) 0.10 H Absolute Neuts (auto) 14.6 H Absolute Nucleated RBC 0.000 Nucleated RBC % (auto) 0.0 PT INR APTT Anion Gap 15 Estim Creat Clear Calc 93.3 Estimated GFR > 60 Random Glucose 119 H Calcium 10.1 D Total Bilirubin 0.7 Direct Bilirubin 0.3 AST 15 ALT 14 Alkaline Phosphatase 51 Total Protein 7.5 Albumin 4.3 COVID-19 ([place]) Negative COVID-19 Clin Com See Note 08/12/21 02:35 MCV MCH MCHC RDW Plt Count MPV Immature Gran % (Auto) Neut % (Auto) Lymph % (Auto) [place] % (Auto) Eos % (Auto) Baso % (Auto) Lymph # (Auto) [place] # (Auto) Eos # (Auto) Baso # (Auto) Abs Immat Gran (auto) Absolute Neuts (auto) Absolute Nucleated RBC Nucleated RBC % (auto) PT 13.7 H INR 1.2 H APTT 40.2 H D Anion Gap Estim Creat Clear Calc Estimated GFR Random Glucose Calcium Total Bilirubin Direct Bilirubin AST ALT Alkaline Phosphatase Total Protein Albumin COVID-19 ([place]) COVID-19 Clin Com Assessment and Plan (1) Cerebral venous thrombosis of cortical vein: Status: Acute (2) Acute intractable headache: Status: Acute Plan This is a 46 year old male with recent diagnosis of aceptic meningitis and cerebral venous thrombosis of cortical?vein who presents with intractable headache intractable headache likely secondary to CVT has been taking topomax and the remainder of his oral hydromorphone at home with no relief of symptoms -neurology consult pending -IV morphine CVT -continue therapeutic lovenox 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 keyes Patient requires continued hospitalization due to inability to control pain with oral agents, neurology follow up Quality Stroke Does the patient have a stroke diagnosis?: No VTE Prior VTE?: No VTE Risk Level:: Medical - low VTE Device Contraindication: Treatment Not Indicated VTE Drug Contraindication: N/A - Med Ordered
[2021-08-12] MEDS: Acetaminophen 325 MG TABLET 650 MG PO ×2 (17:37→21:54)
--- NOTE | 2021-08-12 18:05 | P.CNNE_ITS ---
History of Present Illness Data of Consult Service Date: 08/12/21 Primary Care Provider: Unknown Physician HPI Reason for consult: Severe continuing headaches. Status post aseptic meningitis This is a 46-year-old man who was admitted here about to 11 days ago with severe headaches and workup revealed aseptic meningitis with the elevated white count and protein with normal sugar and negative cultures. 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 His CAT scan was suggestive of a small cortical vein thrombosis in the MRI and MRV confirmed a small left cortical venous thrombosis. His sagittal sinus and sigmoid sinuses are wide open. His headache continues. He has no previous history of migraine or other headaches. He still feels some stiffness and pain in his neck. He has no weakness or numbness. He has no nausea or vomiting. He has slight photophobia. Review of Systems Review of Systems: Constitutional : No Weight loss, No Fever, No Chills, No Night Sweats, No Fatigue, No Malaise ENT/Mouth : No Hearing loss, No Ear Pain, No Nasal Congestion, No Sinus Pain, No Hoarseness, No sore throat, No Rhinorrhea, No Swallowing Difficulty Eyes: No Eye Pain, No Swelling, No Redness, No Foreign Body, No Discharge, No Vision Changes Cardiovascular : No Chest Pain, No SOB, No Dyspnea on Exertion, No Orthopnea, No Edema, No Palpitations Respiratory : No Cough, No Sputum, No Wheezing, No Smoke Exposure, No Dyspnea Gastrointestinal : No Nausea, No Vomiting, No Diarrhea, No Constipation, No abdominal Pain, No Hematochezia, No Melena Genitourinary : no irregular bleeding, No Dysuria, No Urinary Frequency, No Hematuria, No Urinary Incontinence, No Urgency, No Flank Pain, No Urinary Flow Changes, No Hesitancy Musculoskeletal : No joint pain, No Myalgias, No Joint Swelling Skin : No Skin Lesions, No rash Neuro : No Weakness, No Numbness, No Paresthesias, No Loss of Consciousness, No Dizziness, complaining of headache Psych : No Anxiety/Panic, No Depression, No SI/HI/AH/VH, No Social Issues, Heme/Lymph: No Bruising, No Bleeding,No Lymphadenopathy Endocrine : No Polyuria, No Polydipsia, No Temperature Intolerance Yes all ot her systems are reviewed and are negative Constitutional: Constitutional: Denies chills, Denies fever(s) and Reports headache(s) Eyes: Eyes: Denies change in vision ENT: Reports headache(s) Cardiovascular: Cardiovascular: Denies chest pain, Denies palpitations and Denies dyspnea Respiratory: Respiratory: Denies cough and Denies dyspnea Gastrointestinal: Gastrointestinal: Denies abdominal pain, Denies diarrhea, Denies nausea and Denies vomiting Neurologic: Reports headache(s) Endocrine: Endocrine: Denies palpitations PMFSH Past Medical History Medical History Aseptic meningitis Family History Family History Other No family history of coronary artery disease Surgical History Surgical History No pertinent past surgical history Social History Social History Household Members: Family Housing: Apartment Do you presently have visiting nurse or other home services: No Alcohol intake: never Patient Tobacco Use Status: Never used Tobacco service: No Current occupational status: employed Meds Allergies Allergy/AdvReac Type Severity Reaction Status Date / Time No Known Allergies Allergy Verified 08/12/21 00:17 Active Medications: Current Medications Acetaminophen (Acetaminophen 325 Mg Tablet) 650 mg PO TID [facility] Last Admin: 08/12/21 17:37 Dose: 650 mg Documented by: Amlodipine Besylate (Amlodipine Besylate 5 Mg Tablet) 5 mg PO DAILY TONI; Protocol Last Admin: 08/12/21 08:51 Dose: 5 mg Documented by: Docusate Sodium (Docusate Sodium 100 Mg Capsule) 100 mg PO BID PRN PRN Reason: Constipation Enoxaparin Sodium (Enoxaparin Sodium 80 Mg/0.8 Ml Syringe) 80 mg SUBCUT Q12H [facility] Last Admin: 08/12/21 08:51 Dose: 80 mg Documented by: [place] Hydroxide (Milk Of Magnesia 30 Ml Oral.Susp) 30 ml PO DAILY PRN PRN Reason: Constipation Morphine Sulfate (Morphine Sulfate 4 Mg/Ml Cartridge) 4 mg IVPUSH Q4H PRN; Protocol PRN Reason: Pain, Severe (Pain Scale 7-10) Last Admin: 08/12/21 17:52 Dose: 4 mg Documented by: Ondansetron HCl (Ondansetron Hcl 4 Mg/2 Ml Vial) 4 mg IVPUSH Q8H PRN PRN Reason: Nausea and Vomiting Sodium Chloride (0.9 % Sodium Chloride Flush 3 Ml Syringe) 3 ml IVFLUSH QSHIFT [facility] Last Admin: 08/12/21 16:16 Dose: Not Given Documented by: Topiramate (Topiramate 25 Mg Tablet) 25 mg PO BID [facility] Last Admin: 08/12/21 08:51 Dose: 25 mg Documented by: Home Medications Medication Instructions Recorded Confirmed Last Taken Type acetaminophen 325 mg tablet 650 mg PO Q6H PRN 08/01/21 08/12/21 Unknown History multivitamin 1 tab PO DAILY 08/01/21 08/08/21 1 Day Ago History ~08/11/21 sildenafil 100 mg tablet 1 tab PO DAILY 08/12/21 08/12/21 Unknown History Physical Exam Vital Signs: Vital Signs: Last Vital Signs Temp 97.1 F 08/12/21 16:00 Pulse 79 08/12/21 16:00 Resp 18 08/12/21 17:52 BP 135/82 08/12/21 16:00 Pulse Ox 98 08/12/21 16:00 BMI result Body Mass Index 30.0 Const: Other: Appearance: Alert. Oriented X3. No acute distress. Well-appearing/ not toxic Eyes: Pupils equal, round and reactive to light. ENT: Pharynx normal. Neck: Normal inspection. Neck supple. No lymph nodes noted. No crepitus. patient is able to flex and extend the neck, with mildly decreased range of motion, mild neck stiffness, per patient improving from the last week CVS: Normal heart rate and rhythm. Pulses normal. Normal S1 and S2 Respiratory: No respiratory distress. Breath sounds normal. No Wheezing. No rales Abdomen: Soft and nontender. No rigidity. No distention. good BS x4 Skin: Skin warm and dry. Normal skin color. Normal skin turgor. Extremities: No lower extremity edema. No Lacerations. No Rash Neuro: Oriented X 3. No motor deficit. No sensory deficit. Moving all extermities. No slurred speech. CN 2 through 12 grossly intact. Patient ambulatory with steady gait General: cooperative, healthy appearing, comfortable, no acute distress, alert and awake Nutritional Appearance: average body habitus Orientation/consciousness: patient oriented x3 Eyes: General: appearance normal, both eyes and all related structures Pupils: Equal, round and reactive pupils present Resp: Effort & Inspection: normal respiratory effort and able to speak in complete sentences Auscultation: clear to auscultation bilaterally Cardio: Rate: regular rate Rhythm: regular rhythm Heart sounds: S1 normal heart sound present and S2 normal heart sound present GI: Inspection: No distended Palpation (GI): Soft to palpation and nontender Auscultation: normal bowel sounds Skin: General skin exam: no rashes or lesions noted Neuro: Other: Minimal nuchal rigidity with some increase in pain. Alert oriented x3 with nonfocal examination is General: patient oriented x3 and no focal motor deficits Cranial nerves: Yes Equal, round and reactive pupils present, Yes Normal facial strength present and Yes Midline tongue present Cognition (Neuro): normal cognition Motor exam (neuro): 5/5 motor strength present throughout and Pronator motor function not present Extrem: Other: no leg edema General: Yes normal to inspection and Yes no pedal edema Results Labs CBC & Chem 7: 08/12/21 02:35 08/12/21 02:35 Labs: Short CBC 08/12/21 Range/Units 02:35 WBC 18.5 H (4.8-10.8) X10*3/uL Hgb 15.8 (14.0-18.0) g/dl Hct 46.5 (42.0-52.0) % Plt Count 339 (160-400) X10*3/uL BMP 08/12/21 02:35 Sodium 135 Potassium 4.0 Chloride 101 Carbon Dioxide 23 BUN 18 H Creatinine 1.02 Calcium 10.1 D Liver Function 08/12/21 Range/Units 02:35 Total Bilirubin 0.7 (0.0-1.0) mg/dL Direct Bilirubin 0.3 (0.0-0.5) mg/dL AST 15 (5-37) U/L ALT 14 (0-40) U/L Alkaline Phosphatase 51 (39-117) U/L Albumin 4.3 (3.5-5.0) g/dL Assessment and Plan (1) Cerebral venous thrombosis of cortical vein: Status: Acute He has a small localized cortical venous thrombosis which should not account for this degree of pain. It is appropriate to keep him anticoagulated for 6-8 weeks. (2) Acute intractable headache: Status: Acute His headache appears to be related to his aseptic meningitis. I would treat this symptomatically with her Percocet fives 325 every 4 hours when necessary. Force fluids orally. If the headache is not getting beetter in the next 24-48 hours then a repeat lumbar puncture should be done. 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 keyes Patient requires continued hospitalization due to inability to control pain with oral agents, neurology follow up Procedures Date of Service Date of Service: 08/12/21
[2021-08-13 03:29] VITALS: BP 127/74; PULSE 71; RESP 17; TEMP 36.7; O2SAT 94
[2021-08-13] MEDS: Morphine Sulfate 4 MG/ML CARTRIDGE IVPUSH ×5 (06:14→23:36)
[2021-08-13 06:23] LABS: MANUAL DIFF FLAG NO
[2021-08-13 06:49] LABS: Basophils Percent Auto 0.4 % (0-2); Eosinophils Absolute Auto 0.1 X10*3/uL (0.0-0.4); Eosinophils Percent Auto 0.8 % (0-4); Hematocrit 44.3 % (42.0-52.0); Hemoglobin 14.6 g/dl (14.0-18.0); Imm Gran Abs Auto 0.04 X10*3/uL (0.00-0.03); Imm Gran Pct Auto 0.4 % (0.0-0.4); Lymphocytes Absolute Auto 2.7 X10*3/uL (1.2-4.9); Lymphocytes Percent Auto 28.1 % (20-40); Mean Platelet Volume 9.6 fL (9.4-12.4); Monocytes Absolute Auto 0.5 X10*3/uL (0.1-1.2); Monocytes Percent Auto 5.3 % (2-11); Neutrophils Absolute Auto 6.2 x10*3/uL (2.0-8.3); Platelet Count 278 X10*3/uL (160-400); Red Blood Count 5.21 X10*6/uL (4.60-5.80); Red Cell Distribution Width 13.7 % (11.0-16.0); White Blood Count 9.5 X10*3/uL (4.8-10.8)
[2021-08-13 06:55] LABS: Anion Gap 12 (12-20); Blood Urea Nitrogen 17 mg/dL (9-16); Carbon Dioxide 20 mmol/L (22-29); Chloride 108 mmol/L (96-108); Creatinine Clr Calc Pharmacy 108.1; Estimated Glomerular Filt Rate > 60; Glucose Random 121 mg/dL (60-115); Potassium 3.6 mmol/L (3.3-5.1); Sodium 136 mmol/L (135-145)
[2021-08-13 06:56] VITALS: BP 121/72; PULSE 77; RESP 18; TEMP 36.6; O2SAT 96
[2021-08-13 07:02] LABS: INTERNATIONAL NORM RATIO 1.1 (0.9-1.1)
[2021-08-13] MEDS: Enoxaparin Sodium 80 MG/0.8 ML SYRINGE SUBCUT ×2 (08:47→20:47)
[2021-08-13] MEDS: amLODIPine Besylate 5 MG TABLET PO (08:48)
[2021-08-13] MEDS: 0.9 % Sodium Chloride Flush 3 ML SYRINGE IVFLUSH ×2 (08:48→15:22)
[2021-08-13] MEDS: oxyCODONE HCl Immed Release 5 MG TABLET PO (08:48)
[2021-08-13] MEDS: Acetaminophen 325 MG TABLET 650 MG PO ×3 (08:48→20:47)
[2021-08-13] MEDS: Topiramate 25 MG TABLET PO ×2 (08:49→20:47)
--- NOTE | 2021-08-13 10:55 | P.PNIM_ITS ---
Subjective Subjective Date of Service: 08/13/21 <OZIEL Magana - Last Filed: 08/13/21 11:10> 08/13/21 <Sam Thrasher DO - Last Filed: 08/13/21 13:01> Interval History: seen and examined this morning persistent headache/neck pain no fever, chills; no nausea or vomiting <OZIEL Magana - Last Filed: 08/13/21 11:10> Review of Systems Review of Systems: Yes all other systems are reviewed and are negative <OZIEL Magana - Last Filed: 08/13/21 11:10> Constitutional Constitutional: Denies chills and Denies fever(s) <OZIEL Magana - Last Filed: 08/13/21 11:10> Eyes Eyes: Denies change in vision <OZIEL Magana - Last Filed: 08/13/21 11:10> Cardiovascular Cardiovascular: Denies chest pain, Denies palpitations and Denies dyspnea <OZIEL Magana - Last Filed: 08/13/21 11:10> Respiratory Respiratory: Denies cough and Denies dyspnea <OZIEL Magana - Last Filed: 08/13/21 11:10> Gastrointestinal Gastrointestinal: Denies abdominal pain, Denies diarrhea and Denies nausea <OZIEL Magana - Last Filed: 08/13/21 11:10> Endocrine Endocrine: Denies palpitations <OZIEL Magana - Last Filed: 08/13/21 11:10> Physical Exam Vital Signs: Vital Signs: Last Vital Signs Temp 98 F 08/13/21 06:56 Pulse 77 08/13/21 06:56 Resp 18 08/13/21 06:56 BP 121/72 08/13/21 06:56 Pulse Ox 96 08/13/21 06:56 BMI result Body Mass Index 30.0 <OZIEL Magana - Last Filed: 08/13/21 11:10> Const: General: healthy appearing, comfortable, alert and awake <OZIEL Magana - Last Filed: 08/13/21 11:10> Nutritional Appearance: average body habitus <OZIEL Magana - Last Filed: 08/13/21 11:10> Orientation/consciousness: patient oriented x3 <OZIEL Magana - Last Filed: 08/13/21 11:10> Eyes: Pupils: Equal, round and reactive pupils present <OZIEL Magana - Last Filed: 08/13/21 11:10> Resp: Effort & Inspection: normal respiratory effort and able to speak in complete sentences <OZIEL Magana - Last Filed: 08/13/21 11:10> Cardio: Rate: regular rate <OZIEL Magana - Last Filed: 08/13/21 11:10> Heart sounds: S1 normal heart sound present and S2 normal heart sound present <OZIEL Magana - Last Filed: 08/13/21 11:10> GI: Inspection: No distended <OZIEL Magana - Last Filed: 08/13/21 11:10> Palpation (GI): Soft to palpation and nontender <OZIEL Magana - Last Filed: 08/13/21 11:10> Neuro: Other: some stiffness of neck present, pt reports decrease from prior <OZIEL Magana - Last Filed: 08/13/21 11:10> General: patient oriented x3 and no focal motor deficits <OZIEL Magana - Last Filed: 08/13/21 11:10> Cranial nerves: Yes Equal, round and reactive pupils present, Yes Normal facial strength present and Yes Midline tongue present <OZIEL Magana - Last Filed: 08/13/21 11:10> Motor exam (neuro): 5/5 motor strength present throughout <OZIEL Magana - Last Filed: 08/13/21 11:10> Extrem: Other: no leg edema <OZIEL Magana - Last Filed: 08/13/21 11:10> Objective Data Active Medications Acetaminophen (Acetaminophen 325 Mg Tablet) 650 mg PO TID [facility] Last Admin: 08/13/21 08:48 Dose: 650 mg Documented by: HOKalinaCOTEMA Amlodipine Besylate (Amlodipine Besylate 5 Mg Tablet) 5 mg PO DAILY [facility]; Protocol Last Admin: 08/13/21 08:48 Dose: 5 mg Documented by: LISA Docusate Sodium (Docusate Sodium 100 Mg Capsule) 100 mg PO BID PRN PRN Reason: Constipation Enoxaparin Sodium (Enoxaparin Sodium 80 Mg/0.8 Ml Syringe) 80 mg SUBCUT Q12H [facility] Last Admin: 08/13/21 08:47 Dose: 80 mg Documented by: LISA Magnesium Hydroxide (Milk Of Magnesia 30 Ml Oral.Susp) 30 ml PO DAILY PRN PRN Reason: Constipation Morphine Sulfate (Morphine Sulfate 4 Mg/Ml Cartridge) 4 mg IVPUSH Q4H PRN; Protocol PRN Reason: Pain, Severe (Pain Scale 7-10) Last Admin: 08/13/21 06:14 Dose: 4 mg Documented by: HYACINTH Ondansetron HCl (Ondansetron Hcl 4 Mg/2 Ml Vial) 4 mg IVPUSH Q8H PRN PRN Reason: Nausea and Vomiting Oxycodone HCl (Oxycodone Hcl Immed Release 5 Mg Tablet) 5 mg PO Q4H PRN PRN Reason: Pain, Moderate (Pain Scale 4-6 Last Admin: 08/13/21 08:48 Dose: 5 mg Documented by: LISA Sodium Chloride (0.9 % Sodium Chloride Flush 3 Ml Syringe) 3 ml IVFLUSH QSHIFT [facility] Last Admin: 08/13/21 08:48 Dose: 3 ml Documented by: LISA Topiramate (Topiramate 25 Mg Tablet) 25 mg PO BID [facility] Last Admin: 08/13/21 08:49 Dose: 25 mg Documented by: LISA <OZIEL Magana - Last Filed: 08/13/21 11:10> Labs CBC & Chem 7: : 08/13/21 06:10 08/13/21 06:10 <OZIEL Magana - Last Filed: 08/13/21 11:10> Labs: Laboratory Results - last 24 hr 08/13/21 08/13/21 08/13/21 06:10 06:10 06:10 MCV 85.0 MCH 28.0 MCHC 33.0 RDW 13.7 Plt Count 278 MPV 9.6 Immature Gran % (Auto) 0.4 Neut % (Auto) 65.0 Lymph % (Auto) 28.1 Sabine % (Auto) 5.3 Eos % (Auto) 0.8 Baso % (Auto) 0.4 Lymph # (Auto) 2.7 [place]ine # (Auto) 0.5 Eos # (Auto) 0.1 Baso # (Auto) 0.0 Abs Immat Gran (auto) 0.04 H Absolute Neuts (auto) 6.2 Absolute Nucleated RBC 0.000 Nucleated RBC % (auto) 0.0 PT 13.0 INR 1.1 Anion Gap 12 Estim Creat Clear Calc 108.1 Estimated GFR > 60 Random Glucose 121 H Calcium 9.0 D <OZIEL Magana - Last Filed: 08/13/21 11:10> Assessment and Plan (1) Cerebral venous thrombosis of cortical vein: Status: Acute <OZIEL Magana - Last Filed: 08/13/21 11:10> (2) Acute intractable headache: Status: Acute <OZIEL Magana - Last Filed: 08/13/21 11:10> Plan This is a 46 year old male with 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 Thrasher Patient requires continued hospitalization due to inability to control pain with oral agents, neurology follow up Pt seen/examined. Agree with H+P/physical exam and assessment /plan as outlined by Ms. Stanley <Sam Thrasher, DO - Last Filed: 08/13/21 13:01> Quality Stroke Does the patient have a stroke diagnosis?: No <OZIEL Magana - Last Filed: 08/13/21 11:10> VTE Prior VTE?: No <OZIEL aMgana - Last Filed: 08/13/21 11:10> VTE Risk Level:: Medical - low <OZIEL Magana - Last Filed: 08/13/21 11:10> VTE Device Contraindication: Treatment Not Indicated <OZIEL Magana - Last Filed: 08/13/21 11:10> VTE Drug Contraindication: N/A - Med Ordered <OZIEL Magana - Last Filed: 08/13/21 11:10>
[2021-08-13 11:04] VITALS: BP 129/80; PULSE 80; RESP 18; TEMP 36.1; O2SAT 98
[2021-08-13 15:22] VITALS: RESP 19
[2021-08-13 15:30] VITALS: BP 133/80; PULSE 84; RESP 18; TEMP 36.4; O2SAT 99
[2021-08-13 19:31] VITALS: BP 137/77; PULSE 84; RESP 18; TEMP 36.4; O2SAT 96
[2021-08-14] VITALS (8 sets, daily range): BP systolic 120–137; BP diastolic 71–87; PULSE 72–93; RESP 15–18; TEMP 36.1–37.2; O2SAT 96–98
[2021-08-14] MEDS: 0.9 % Sodium Chloride Flush 3 ML SYRINGE IVFLUSH ×4 (02:59→19:30)
[2021-08-14] MEDS: Morphine Sulfate 4 MG/ML CARTRIDGE IVPUSH ×5 (05:04→23:01)
[2021-08-14 06:11] LABS: Hematocrit 44.4 % (42.0-52.0); Hemoglobin 14.4 g/dl (14.0-18.0); Mean Corpuscular HGB Conc 32.4 g/dl (31.0-36.0); Mean Corpuscular Hemoglobin 27.9 pg (27.0-33.0); Mean Corpuscular Volume 85.9 fL (80.0-98.0); Mean Platelet Volume 9.2 fL (9.4-12.4); Platelet Count 262 X10*3/uL (160-400); Red Blood Count 5.17 X10*6/uL (4.60-5.80); Red Cell Distribution Width 13.5 % (11.0-16.0); White Blood Count 10.2 X10*3/uL (4.8-10.8)
[2021-08-14 06:26] LABS: INTERNATIONAL NORM RATIO 1.2 (0.9-1.1); Prothrombin Time 13.2 SEC (9.9-13.0)
[2021-08-14 06:29] LABS: Anion Gap 10 (12-20); Blood Urea Nitrogen 17 mg/dL (9-16); Calcium 8.9 mg/dL (8.4-10.2); Carbon Dioxide 24 mmol/L (22-29); Chloride 107 mmol/L (96-108); Creatinine Clr Calc Pharmacy 84.9; Estimated Glomerular Filt Rate > 60; Glucose Random 110 mg/dL (60-115); Potassium 3.7 mmol/L (3.3-5.1); Sodium 137 mmol/L (135-145)
[2021-08-14] MEDS: Topiramate 25 MG TABLET PO (09:33)
[2021-08-14] MEDS: Acetaminophen 325 MG TABLET 650 MG PO ×3 (09:34→19:29)
[2021-08-14] MEDS: amLODIPine Besylate 5 MG TABLET PO (09:34)
--- NOTE | 2021-08-14 14:47 | P.PNIM_ITS ---
Subjective Subjective Date of Service: 08/14/21 Interval History: Complaining of persistent headache more towards left side and top of head and also complaining of neck stiffness denies fever, chills, no lightheadedness, or dizziness, no other neurological deficit of weakness numbness, headache relieves with oxycodone and return after 3-4 hours currently 8/10 headache. Review of Systems Review of Systems: Yes all other systems are reviewed and are negative Physical Exam Vital Signs: Vital Signs: Last Vital Signs Temp 98.2 F 08/14/21 11:48 Pulse 84 08/14/21 11:48 Resp 18 08/14/21 11:48 BP 137/87 08/14/21 11:48 Pulse Ox 96 08/14/21 11:48 BMI result Body Mass Index 30.0 Const: Other: General awake alert x3, mild distress due to headache HEENT pupils equal round reactive to light and accommodation no nystagmus Neck mild neck stiffness CVS regular rate rhythm, Respiratory lungs clear to auscultation, no respiratory distress, no wheeze, no rhonchi. Gastrointestinal abdomen soft, nontender, bowel sounds audible, no guarding , no rigidity. Extremities no clubbing cyanosis or edema. Neuro nonfocal patient moving all 4 extremity speech clear, steady gait Skin no rash Psych appropriate affect Objective Data Active Medications Acetaminophen (Acetaminophen 325 Mg Tablet) 650 mg PO TID [facility] Last Admin: 08/14/21 09:34 Dose: 650 mg Documented by: PALLAVI Amlodipine Besylate (Amlodipine Besylate 5 Mg Tablet) 5 mg PO DAILY [facility]; Pr otocol Last Admin: 08/14/21 09:34 Dose: 5 mg Documented by: PALLAVI Docusate Sodium (Docusate Sodium 100 Mg Capsule) 100 mg PO BID PRN PRN Reason: Constipation Enoxaparin Sodium (Enoxaparin Sodium 80 Mg/0.8 Ml Syringe) 80 mg SUBCUT Q12H [facility] Last Admin: 08/14/21 11:37 Dose: Not Given Documented by: PALLAVI Non-Admin Reason: held forLP Magnesium Hydroxide (Milk Of Magnesia 30 Ml Oral.Susp) 30 ml PO DAILY PRN PRN Reason: Constipation Morphine Sulfate (Morphine Sulfate 4 Mg/Ml Cartridge) 4 mg IVPUSH Q4H PRN; Protocol PRN Reason: Pain, Severe (Pain Scale 7-10) Last Admin: 08/14/21 09:45 Dose: 4 mg Documented by: PALLAVI Ondansetron HCl (Ondansetron Hcl 4 Mg/2 Ml Vial) 4 mg IVPUSH Q8H PRN PRN Reason: Nausea and Vomiting Oxycodone HCl (Oxycodone Hcl Immed Release 5 Mg Tablet) 5 mg PO Q4H PRN PRN Reason: Pain, Moderate (Pain Scale 4-6 Last Admin: 08/13/21 08:48 Dose: 5 mg Documented by: LISA Sodium Chloride (0.9 % Sodium Chloride Flush 3 Ml Syringe) 3 ml IVFLUSH QSHIFT [facility] Last Admin: 08/14/21 09:36 Dose: 3 ml Documented by: PALLAVI Topiramate (Topiramate 25 Mg Tablet) 25 mg PO BID [facility] Last Admin: 08/14/21 09:33 Dose: 25 mg Documented by: PALLAVI Labs CBC & Chem 7: 08/14/21 06:02 08/14/21 06:02 Labs: Laboratory Results - last 24 hr 08/14/21 08/14/21 08/14/21 06:02 06:02 06:02 MCV 85.9 MCH 27.9 MCHC 32.4 RDW 13.5 Plt Count 262 MPV 9.2 L Absolute Nucleated RBC 0.000 Nucleated RBC % (auto) 0.0 PT 13.2 H INR 1.2 H Anion Gap 10 L Estim Creat Clear Calc 84.9 Estimated GFR > 60 Random Glucose 110 Calcium 8.9 Assessment and Plan (1) Cerebral venous thrombosis of cortical vein: Status: Acute (2) Acute intractable headache: Status: Acute Plan This is a 46 year old male with 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 has remained afebrile, leukocytosis resolved Is spoke with Dr. 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 Quality Stroke Does the patient have a stroke diagnosis?: No VTE Prior VTE?: No VTE Risk Level:: Medical - low VTE Device Contraindication: Treatment Not Indicated VTE Drug Contraindication: N/A - Med Ordered
[2021-08-14 15:39] LABS: Appearance CSF CLEAR; CSF Tube # 4; Color CSF COLORLESS
[2021-08-14 15:43] LABS: CSF Monos 2 %; Lymphocytes CSF 97 %; Red Blood Cell CSF 0 MM*3; White Blood Cell CSF 71 MM*3
[2021-08-14 15:44] LABS: CSF Other Cells % 1 %; Glucose CSF 63 mg/dL; Total Protein CSF 130.4 mg/dL (15-45)
[2021-08-14 16:29] LABS: Cryptococcus neoformans/gattii Not Detected (Not Detect.); Enterovirus Not Detected (Not Detect.); Escherichia coli K1 Not Detected (Not Detect.); Haemophilus influenzae Not Detected (Not Detect.); Herpes simplex virus 1 Not Detected (Not Detect.); Herpes simplex virus 2 Not Detected (Not Detect.); Human herpesvirus 6 Not Detected (Not Detect.); Human parechovirus Not Detected (Not Detect.); Listeria monocytogenes Not Detected (Not Detect.); Neisseria meningitidis Not Detected (Not Detect.); Streptococcus agalactiae Not Detected (Not Detect.); Streptococcus pneumoniae Not Detected (Not Detect.)
[2021-08-14 16:30] LABS: Varicella zoster virus Not Detected (Not Detect.)
[2021-08-14 16:53] LABS: CSF Appearance Clear, Colorless; CSF Tube # 1
[2021-08-14] MEDS: Docusate Sodium 100 MG CAPSULE PO (19:29)
[2021-08-14] MEDS: cefTRIAXone sodium 2 GM in 0.9 % Sodium Chloride 50 ML IV (19:29)
[2021-08-14] MEDS: Sennosides 8.6 MG TABLET 17.2 MG PO (19:29)
[2021-08-14] MEDS: Enoxaparin Sodium 80 MG/0.8 ML SYRINGE SUBCUT (19:30)
[2021-08-15 06:51] VITALS: BP 136/73; PULSE 81; RESP 18; TEMP 36.9; O2SAT 98
[2021-08-15] MEDS: Acetaminophen 325 MG TABLET 650 MG PO ×3 (08:18→21:47)
[2021-08-15] MEDS: amLODIPine Besylate 5 MG TABLET PO (08:18)
[2021-08-15] MEDS: Docusate Sodium 100 MG CAPSULE PO ×2 (08:19→21:47)
[2021-08-15] MEDS: Topiramate 25 MG TABLET PO (08:19)
[2021-08-15] MEDS: Enoxaparin Sodium 80 MG/0.8 ML SYRINGE SUBCUT ×2 (08:19→21:48)
[2021-08-15] MEDS: Morphine Sulfate 4 MG/ML CARTRIDGE IVPUSH ×4 (08:20→21:48)
[2021-08-15] MEDS: 0.9 % Sodium Chloride Flush 3 ML SYRINGE IVFLUSH ×2 (08:20→16:31)
[2021-08-15 11:01] VITALS: BP 141/68; PULSE 95; RESP 16; TEMP 36; O2SAT 97
--- NOTE | 2021-08-15 11:26 | P.PNIM_ITS ---
Subjective Subjective Date of Service: 08/16/21 Interval History: No change in headache and neck stiffness since yesterday, also complaining of photophobia, no other neurological deficit no rash, no fever chills overnight. Review of Systems Review of Systems: Yes all other systems are reviewed and are negative Physical Exam Vital Signs: Vital Signs: Last Vital Signs Temp 96.8 F 08/15/21 11:01 Pulse 95 08/15/21 11:01 Resp 16 08/15/21 11:01 BP 141/68 H 08/15/21 11:01 Pulse Ox 97 08/15/21 11:01 BMI result Body Mass Index 30.0 Const: Other: General awake alert x3, no distress HEENT pupils equal round reactive to light and accommodation no nystagmus Neck mild neck stiffness CVS? regular rate rhythm, Respiratory lungs clear to auscultation, no respiratory distress, no wheeze, no rhonchi. Gastrointestinal abdomen soft, nontender, bowel sounds audible, no guarding , no rigidity. Extremities no clubbing cyanosis or edema. Neuro nonfocal patient moving all 4 extremity speech clear, steady gait Skin no rash Psych appropriate affect Objective Data Active Medications Acetaminophen (Acetaminophen 325 Mg Tablet) 650 mg PO TID [facility] Last Admin: 08/15/21 08:18 Dose: 650 mg Documented by: JASON Acetaminophen/Butalbital/Caffeine (Butalb/Acetamin/Caff 50/325/40 Tablet) 1 tab PO Q4H PRN PRN Reason: Headache Amlodipine Besylate (Amlodipine Besylate 5 Mg Tablet) 5 mg PO DAILY [facility]; Protocol Last Admin: 08/15/21 08:18 Dose: 5 mg Documented by: JASON Docusate Sodium (Docusate Sodium 100 Mg Capsule) 100 mg PO BID [facility] Last Admin: 08/15/21 08:19 Dose: 100 mg Documented by: JASON Enoxaparin Sodium (Enoxaparin Sodium 80 Mg/0.8 Ml Syringe) 80 mg SUBCUT Q12H [facility] Last Admin: 08/15/21 08:19 Dose: 80 mg Documented by: JASON Ceftriaxone Sodium 2 gm/ (Sodium Chloride) 50 mls @ 100 mls/hr IV Q24H [facility] Last Infusion: 08/14/21 20:01 Dose: 0 mls/hr Documented by: HYACINTH Magnesium Hydroxide (Milk Of Magnesia 30 Ml Oral.Susp) 30 ml PO DAILY PRN PRN Reason: Constipation Morphine Sulfate (Morphine Sulfate 4 Mg/Ml Cartridge) 4 mg IVPUSH Q4H PRN; Protocol PRN Reason: Pain, Severe (Pain Scale 7-10) Last Admin: 08/15/21 08:20 Dose: 4 mg Documented by: JASON Ondansetron HCl (Ondansetron Hcl 4 Mg/2 Ml Vial) 4 mg IVPUSH Q8H PRN PRN Reason: Nausea and Vomiting Oxycodone HCl (Oxycodone Hcl Immed Release 5 Mg Tablet) 7.5 mg PO Q4H PRN PRN Reason: Pain, Moderate (Pain Scale 4-6 Senna (Sennosides 8.6 Mg Tablet) 17.2 mg PO BEDTIME [facility] Last Admin: 08/14/21 19:29 Dose: 17.2 mg Documented by: HYACINTH Sodium Chloride (0.9 % Sodium Chloride Flush 3 Ml Syringe) [facility] Last Admin: 08/15/21 08:20 Dose: 3 ml Documented by: JASON Topiramate (Topiramate 25 Mg Tablet) 25 mg PO DAILY [facility] Last Admin: 08/15/21 08:19 Dose: 25 mg Documented by: JASON Labs CBC & Chem 7: 08/14/21 06:02 08/14/21 06:02 Labs: Laboratory Results - last 24 hr 08/14/21 08/14/21 08/14/21 13:50 13:50 13:50 CSF Tube Number 1 4 CSF Volume 2.0 CSF Appearance CLEAR CSF Color COLORLESS CSF WBC 71 H* CSF RBC 0 CSF Lymphocytes 97 CSF Monocytes % 2 CSF Other Cells % 1 CSF Appearance (b) Clear, Colorless CSF Glucose 63 CSF Total Protein 130.4 H CSF C.neoform/gat PCR Not Detected CSF CMV DNA (PCR) Not Detected CSF Enterovirus (PCR) Not Detected CSF E. coli K1 (PCR) Not Detected CSF H. influenzae (PCR) Not Detected CSF HSV I (PCR) Not Detected CSF HSV II (PCR) Not Detected CSF L.monocytogenes PCR Not Detected CSF N. meningitidis PCR Not Detected CSF Parechovirus (PCR) Not Detected CSF S. agalactiae (PCR) Not Detected CSF S. pneumoniae (PCR) Not Detected CSF VZV (PCR) Not Detected HHV-6 (PCR) Not Detected Microbiology Microbiology Results: Microbiology 08/14/21 13:50 Gram Stain - Final Cerebrospinal Fluid CSF Examination - Final Fluid Description - Final CSF Culture - Preliminary No growth after 1 day Assessment and Plan (1) Cerebral venous thrombosis of cortical vein: Status: Acute (2) Acute intractable headache: Status: Acute Plan This is a 46 year old male with recent diagnosis of aceptic meningitis and ce rebral venous thrombosis of cortical?vein who presents with intractable headache intractable headache/neck stiffness Persistent headache, neck stiffness and photophobia ongoing symptoms since July 31 No symptoms of confusion, no unsteady gait, no other neurological deficit Differential diagnosis aseptic meningitis, waiting for other cultures, patient denies recent travel, no exposure to birds, no tick or mosquito bite Persistent headache some relieve with pain medications,pt. has remained a febrile, leukocytosis resolved spoke with Dr. Ryan he feels small cortical vein thrombosis doesn't explain severity of pain, therefore repeat LP was done that showed persistent lymphocytosis, elevated protein, opening pressure of 38 not significantly Elevated Meningitis/encephalitis panel negative for herpes, cryptococcus, CMV, H flu, West Nile virus CSF pending, EEE pending ,Lyme pend., HIV negative Added IV ceftriaxone 2 g daily to cover Lyme continue pain control with IV morphine, PO oxycodone and tylenol CVT continue therapeutic lovenox HTN BP stable, continue norvasc dvt ppx: lovenox Patient requires continued hospitalization for aseptic meningitis due to inability to control pain with oral agents, continue intravenous analgesics, on IV antibiotic waiting for CSF studies to return. Quality Stroke Does the patient have a stroke diagnosis?: No VTE Prior VTE?: No VTE Risk Level:: Medical - low VTE Device Contraindication: Treatment Not Indicated VTE Drug Contraindication: N/A - Med Ordered
[2021-08-15 15:21] VITALS: BP 130/82; PULSE 97; RESP 17; TEMP 36.2; O2SAT 97
--- NOTE | 2021-08-15 15:55 | W.PM.IDCN ---
History of Present Illness Data of Consult Service Date: 08/15/21 Requesting physician: Setven Sawyer Primary Care Provider: Luan Blunt MD [facility] Reason for consult: headache He presents with 10/10 headache. He has small cortical vein thrombosis and had aseptic meningitis and discharged twice from hospital with it. Herpes test negative He has no travel. He has lymphocytes in CSF. Review of Systems Review of Systems: Yes all other systems are reviewed and are negative PMFSH Past Medical History Medical History Aseptic meningitis Family History Family History Other No family history of coronary artery disease Family history: reviewed and not pertinent Surgical History Surgical History No pertinent past surgical history Social History Social History Household Members: Family Housing: Apartment Do you presently have visiting nurse or other home services: No Alcohol intake: never Patient Tobacco Use Status: Never used Tobacco service: No Current occupational status: employed Meds Allergies Allergy/AdvReac Type Severity Reaction Status Date / Time No Known Allergies Allergy Verified 08/12/21 00:17 Active Medications: Current Medications Acetaminophen (Acetaminophen 325 Mg Tablet) 650 mg PO TID [facility] Last Admin: 08/15/21 08:18 Dose: 650 mg Documented by: Acetaminophen/Butalbital/Caffeine (Butalb/Acetamin/Caff 50/325/40 Tablet) 1 tab PO Q4H PRN PRN Reason: Headache Amlodipine Besylate (Amlodipine Besylate 5 Mg Tablet) 5 mg PO DAILY [facility]; Protocol Last Admin: 08/15/21 08:18 Dose: 5 mg Documented by: Docusate Sodium (Docusate Sodium 100 Mg Capsule) 100 mg PO BID [facility] Last Admin: 08/15/21 08:19 Dose: 100 mg Documented by: Enoxaparin Sodium (Enoxaparin Sodium 80 Mg/0.8 Ml Syringe) 80 mg SUBCUT Q12H [facility] Last Admin: 08/15/21 08:19 Dose: 80 mg Documented by: Ceftriaxone Sodium 2 gm/ (Sodium Chloride) 50 mls @ 100 mls/hr IV Q24H [facility] Magnesium Hydroxide (Milk Of Magnesia 30 Ml Oral.Susp) 30 ml PO DAILY PRN PRN Reason: Constipation Morphine Sulfate (Morphine Sulfate 4 Mg/Ml Cartridge) 4 mg IVPUSH Q4H PRN; Protocol PRN Reason: Pain, Severe (Pain Scale 7-10) Last Admin: 08/15/21 13:12 Dose: 4 mg Documented by: Ondansetron HCl (Ondansetron Hcl 4 Mg/2 Ml Vial) 4 mg IVPUSH Q8H PRN PRN Reason: Nausea and Vomiting Oxycodone HCl (Oxycodone Hcl Immed Release 5 Mg Tablet) 7.5 mg PO Q4H PRN PRN Reason: Pain, Moderate (Pain Scale 4-6 Senna (Sennosides 8.6 Mg Tablet) 17.2 mg PO BEDTIME [facility] Last Admin: 08/14/21 19:29 Dose: 17.2 mg Documented by: Sodium Chloride (0.9 % Sodium Chloride Flush 3 Ml Syringe) 3 ml IVFLUSH QSHIFT [facility] Last Admin: 08/15/21 08:20 Dose: 3 ml Documented by: Topiramate (Topiramate 25 Mg Tablet) 25 mg PO DAILY [facility] Last Admin: 08/15/21 08:19 Dose: 25 mg Documented by: Home Medications Medication Instructions Recorded Confirmed Last Taken Type acetaminophen 325 mg tablet 650 mg PO Q6H PRN 08/01/21 08/12/21 Unknown History multivitamin 1 tab PO DAILY 08/01/21 08/08/21 1 Day Ago History ~08/11/21 sildenafil 100 mg tablet 1 tab PO DAILY 08/12/21 08/12/21 Unknown History Physical Exam Vital Signs: Vital Signs: Last Vital Signs Temp 97.2 F 08/15/21 15:21 Pulse 97 08/15/21 15:21 Resp 17 08/15/21 15:21 BP 130/82 08/15/21 15:21 Pulse Ox 97 08/15/21 15:21 BMI result Body Mass Index 30.0 Const: General: cooperative Orientation/consciousness: patient oriented x3 Eyes: Visual Tyson: normal visual tyson by confrontation Resp: Effort & Inspection: normal respiratory effort Cardio: Rate: regular rate Rhythm: regular rhythm GI: Palpation (GI): Soft to palpation and nontender Skin: General skin exam: no rashes or lesions noted Neuro: Other: some neck discomfort General: patient oriented x3 Results Labs CBC & Chem 7: 08/14/21 06:02 08/14/21 06:02 Microbiology Microbiology Results: Microbiology 08/14/21 13:50 Cerebrospinal Fluid Gram Stain - Final 08/14/21 13:50 Cerebrospinal Fluid CSF Examination - Final 08/14/21 13:50 Cerebrospinal Fluid Fluid Description - Final 08/14/21 13:50 Cerebrospinal Fluid CSF Culture - Preliminary No growth after 1 day Assessment and Plan (1) Cerebral venous thrombosis of cortical vein: Status: Acute (2) Acute intractable headache: Status: Acute Headache continues Infectious etiologies so far negative 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
[2021-08-15] MEDS: cefTRIAXone sodium 2 GM in 0.9 % Sodium Chloride 50 ML IV (18:50)
[2021-08-15 19:36] VITALS: BP 137/87; PULSE 87; RESP 17; TEMP 36.5; O2SAT 96
[2021-08-15 21:32] VITALS: BP 139/75; PULSE 85
[2021-08-15] MEDS: Sennosides 8.6 MG TABLET 17.2 MG PO (21:47)
[2021-08-15 21:48] VITALS: RESP 18
[2021-08-16] VITALS (7 sets, daily range): BP systolic 122–140; BP diastolic 68–86; PULSE 75–90; RESP 13–18; TEMP 36.2–37.1; O2SAT 96–98
[2021-08-16] MEDS: 0.9 % Sodium Chloride Flush 3 ML SYRINGE IVFLUSH ×4 (00:35→23:48)
[2021-08-16] MEDS: Acetaminophen 325 MG TABLET 650 MG PO ×3 (08:55→20:43)
[2021-08-16] MEDS: amLODIPine Besylate 5 MG TABLET PO (08:55)
[2021-08-16] MEDS: Topiramate 25 MG TABLET PO (08:55)
[2021-08-16] MEDS: Enoxaparin Sodium 80 MG/0.8 ML SYRINGE SUBCUT ×2 (08:56→20:44)
[2021-08-16] MEDS: Docusate Sodium 100 MG CAPSULE PO ×2 (08:56→20:43)
[2021-08-16] MEDS: Morphine Sulfate 4 MG/ML CARTRIDGE IVPUSH ×2 (08:57→13:55)
--- NOTE | 2021-08-16 12:46 | P.PNIM_ITS ---
Subjective Subjective Date of Service: 08/16/21 Interval History: Feels headache and neck stiffness is improving less photophobia, no nausea vomiting tolerating diet no recurrent fever chills, no rash, no other neurological deficit Review of Systems Review of Systems: Yes all other systems are reviewed and are negative Physical Exam Vital Signs: Vital Signs: Last Vital Signs Temp 98.8 F 08/16/21 12:00 Pulse 81 08/16/21 12:00 Resp 15 08/16/21 12:00 BP 140/82 H 08/16/21 12:00 Pulse Ox 97 08/16/21 12:00 BMI result Body Mass Index 30.0 Const: Other: General awake aler t x3, no distress HEENT pupils equal round reactive to light and accommo dation no nystagmu s Neck mild neck s tiffness, improved since yesterday C VS? regular rate r hythm, Respiratory lungs clear to au scultation, no res piratory distress, no wheeze, no rho nchi. Gastrointest inal abdomen soft, nontender, bowel sounds audible, no guarding , no rig idity. Extremities no edema. Neuro n onfocal patient mo ving all 4 extremi ty speech clear, s teady gait Skin no rash Psych approp riate affect Objective Data Active Medications Acetaminophen (Acetaminophen 325 Mg Tablet) 650 mg PO TID [facility] Last Admin: 08/16/21 08:55 Dose: 650 mg Documented by: BRENDA Acetaminophen/Butalbital/Caffeine (Butalb/Acetamin/Caff 50/325/40 Tablet) 1 tab PO Q4H PRN PRN Reason: Headache Amlodipine Besylate (Amlodipine Besylate 5 Mg Tablet) 5 mg PO DAILY [facility]; Protocol Last Admin: 08/16/21 08:55 Dose: 5 mg Documented by: BRENDA Docusate Sodium (Docusate Sodium 100 Mg Capsule) 100 mg PO BID [facility] Last Admin: 08/16/21 08:56 Dose: 100 mg Documented by: BRENDA Enoxaparin Sodium (Enoxaparin Sodium 80 Mg/0.8 Ml Syringe) 80 mg SUBCUT Q12H [facility] Last Admin: 08/16/21 08:56 Dose: 80 mg Documented by: BRENDA Ceftriaxone Sodium 2 gm/ (Sodium Chloride) 50 mls @ 100 mls/hr IV Q24H [facility] Last Infusion: 08/15/21 19:30 Dose: 0 mls/hr Documented by: TUMASY Magnesium Hydroxide (Milk Of Magnesia 30 Ml Oral.Susp) 30 ml PO DAILY PRN PRN Reason: Constipation Morphine Sulfate (Morphine Sulfate 4 Mg/Ml Cartridge) 4 mg IVPUSH Q4H PRN; Protocol PRN Reason: Pain, Severe (Pain Scale 7-10) Last Admin: 08/16/21 08:57 Dose: 4 mg Documented by: BRENDA Ondansetron HCl (Ondansetron Hcl 4 Mg/2 Ml Vial) 4 mg IVPUSH Q8H PRN PRN Reason: Nausea and Vomiting Oxycodone HCl (Oxycodone Hcl Immed Release 5 Mg Tablet) 7.5 mg PO Q4H PRN PRN Reason: Pain, Moderate (Pain Scale 4-6 Senna (Sennosides 8.6 Mg Tablet) 17.2 mg PO BEDTIME [facility] Last Admin: 08/15/21 21:47 Dose: 17.2 mg Documented by: BRAULIO Sodium Chloride (0.9 % Sodium Chloride Flush 3 Ml Syringe) 3 ml IVFLUSH QSHIFT [facility] Last Admin: 08/16/21 08:56 Dose: 3 ml Documented by: BRENDA Topiramate (Topiramate 25 Mg Tablet) 25 mg PO DAILY [facility] Last Admin: 08/16/21 08:55 Dose: 25 mg Documented by: BRENDA Labs CBC & Chem 7: 08/14/21 06:02 08/14/21 06:02 Microbiology Microbiology Results: Microbiology 08/14/21 13:50 Gram Stain - Final Cerebrospinal Fluid CSF Examination - Final Fluid Description - Final CSF Culture - Preliminary No growth after 2 days Assessment and Plan (1) Cerebral venous thrombosis of cortical vein: Status: Acute (2) Acute intractable headache: Status: Acute Plan This is a 46 year old male with 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 has remained afebrile, leukocytosis resolved spoke with Dr. Ryan he feels small cortical vein thrombosis doesn't explain severity of pain, therefore repeat LP was done that showed persistent lymphocytosis, elevated protein, opening pressure of 38 not significantly Elevated Meningitis/encephalitis panel negative for herpes, cryptococcus, CMV, H flu, West Nile virus CSF pending, EEE pending ,Lyme pend., HIV negative Case discussed with Dr. Becker she does not feel patient has Lyme disease therefore recommend to discontinue ceftriaxone, case discussed with Dr. 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 Manning for hypercoagulable workup in next 2-4 weeks HTN BP stable, continue norvasc dvt ppx: lovenox Patient requires continued hospitalization for aseptic meningitis due to inability to control pain with oral agents, continue intravenous analgesics, waiting for CSF studies to return. Quality Stroke Does the patient have a stroke diagnosis?: No VTE Prior VTE?: No VTE Risk Level:: Medical - low VTE Device Contraindication: Treatment Not Indicated VTE Drug Contraindication: N/A - Med Ordered
[2021-08-16] MEDS: oxyCODONE HCl Immed Release 5 MG TABLET 7.5 MG PO ×2 (18:17→23:46)
[2021-08-16] MEDS: cefTRIAXone sodium 2 GM in 0.9 % Sodium Chloride 50 ML IV (18:21)
[2021-08-16] MEDS: Sennosides 8.6 MG TABLET 17.2 MG PO (20:43)
[2021-08-16 20:52] LABS: Lyme (B. burgdorferi) PCR NOT DETECTED (NOT DETECTED)
[2021-08-17 03:59] VITALS: BP 125/80; PULSE 54; RESP 16; TEMP 37.1; O2SAT 100
[2021-08-17] MEDS: amLODIPine Besylate 5 MG TABLET PO (07:45)
[2021-08-17] MEDS: Topiramate 25 MG TABLET PO (07:45)
[2021-08-17] MEDS: Docusate Sodium 100 MG CAPSULE PO (07:45)
[2021-08-17] MEDS: Acetaminophen 325 MG TABLET 650 MG PO (07:45)
[2021-08-17] MEDS: Enoxaparin Sodium 80 MG/0.8 ML SYRINGE SUBCUT (07:46)
[2021-08-17] MEDS: 0.9 % Sodium Chloride Flush 3 ML SYRINGE IVFLUSH (07:47)
[2021-08-17 07:58] VITALS: BP 138/84; PULSE 77; RESP 18; TEMP 37; O2SAT 98
[2021-08-17 11:36] VITALS: BP 133/82; PULSE 87; RESP 20; TEMP 36.2; O2SAT 97
[2021-08-17] MEDS: oxyCODONE HCl Immed Release 5 MG TABLET 7.5 MG PO (12:14)
--- NOTE | 2021-08-17 13:00 | P.DS_ITS ---
DS: Providers Provider Date of Service: 08/17/21 Date of admission: 08/12/21 06:10 Date of discharge: 08/17/21 Primary care physician: uLan Blunt MD Consults: 08/12/21 08:02 Consult to Neurology Routine Consulting Provider: [facility] Reason for consultation: persistant headache;; cortical vein thrombosis Has provider been notified: No 08/14/21 15:57 Consult to Infectious Diseases Routine Consulting Provider: Kat Becker Reason for consultation: aseptic meningitis jean-baptiste Has provider been notified: No Attending physician on discharge: Davion Nunez Discharging clinician: Audrey Morgan DS: Diagnosis Discharge Diagnosis (1) Cerebral venous thrombosis of cortical vein: Status: Acute (2) Acute intractable headache: Status: Acute (3) Aseptic meningitis: Status: Acute DS: Summary Hospital Course Hospital Course: From H&P on day of admission This is a 46-year-old male with past medical history of recently diagnosed cerebral venous [facility] with complaints of headache.? This diagnosis was confirmed with brain MRI and venography which showed a small cortical vein thrombosis.? He was to follow-up with Hematology outpatient for oral anticoag ulation.? Patient returns today stating that he had severe headache not relieved with the Dilaudid he had a home or fiorcet. ? He denies any numbness, tingling, no weakness in arms or legs,? no chest pain or shortness of breath, no abdominal pain nausea or vomiting, no diarrhea constipation, no urinary symptoms and no lower extremity edema. on arrival to the ED patient hemodynamically stable no significant abnormal vitals Labs are significant for WBC count of 18.5 INR of 1.2, Head CT showed no new acute intracranial pathology.? Previously identified? hyperdense cortical vein along the high left frontal lobe appears less conspicuous currently Intractable headache: Recently diagnosed with aseptic meningitis and cerebral venous thrombosis of cortical vein. Returned with persistent headache, neck stiffness and photophobia ongoing since July 31. He was not noted to have confusion, unsteady gait, no other neurological deficit. He remained afebrile and leukocytosis noted on arrival resolved. Patient denied any recent travel, no exposure to birds, no tick or mosquito bite, no exposure to rodents. He was seen by neurology again who felt that a small cortical vein thrombosis doesn't explain severity of pain. For this reason, repeat LP was done that showed persistent lymphocytosis and elevated CSF wbc (although decreased from previous CSF), elevated protein, opening pressure not significantly elevated. Meningitis/encephalitis panel negative for herpes, cryptococcus, CMV, H flu. HIV negative. He was treated empirically with Ceftriaxone, but he was seen by infectious disease, who did not feel that this represented Lyme disease and recommend to discontinue ceftriaxone. 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 *West Nile virus CSF pending, EEE pending ,Lyme, Tspot pending at time of discharge. Both neuro and ID in agreement patient could be discharged with outpatient follow up with neurology and PCP. His symptoms have gradually improved and he is awake, alert, with improved neck ROM, no photophobia, headache improved and controlled with oral meds and tolerating a regular diet and is eager to return home. CVT continued on therapeutic lovenox. Follow-up with Dr. Manning from hematology in the next 2-4 weeks Time Spent with Patient Time attestation: Total time spent providing and/or coordinating discharge services: Discharge coordination time: Greater than 30 minutes Quality: Stroke Does the patient have a stroke diagnosis?: No Physical Exam Vital Signs: Vital Signs: Last Vital Signs Temp 97.1 F 08/17/21 11:36 Pulse 87 08/17/21 11:36 Resp 20 08/17/21 11:36 BP 133/82 08/17/21 11:36 Pulse Ox 97 08/17/21 11:36 BMI result Body Mass Index 30.0 Const: General: cooperative, comfortable, alert and awake Nutritional Appearance: average body habitus Eyes: Sclerae: sclerae normal Pupils: Equal, round and reactive pupils present Resp: Effort & Inspection: normal respiratory effort Cardio: Rate: regular rate Heart sounds: S1 normal heart sound present and S2 normal heart sound present GI: Palpation (GI): Soft to palpation and nontender Neuro: Other: no focal deficits; increased in neck ROM from admission Cranial nerves: Yes Equal, round and reactive pupils present DS: Data Data Completed and Pending Labs on day of discharge: Laboratory Results - last 24 hr 08/14/21 13:50 Fld Lyme DNA (PCR) Lyme Disease DNA (PCR) NOT DETECTED Discharge Plan Discharge Patient Disposition: Home, Self-Care Discharge Diagnosis: intractable headache Aseptic meningitis Cortical vein thrombus Referrals: Luan Blunt MD [Primary Care Provider] - 1 Week Abhijit Ryan MD [Physician] - 1 Week Discharge Medications: New oxycodone 5 mg tablet 5 mg PO Q6H PRN (Reason: severe pain) Qty: 16 0RF Continued [id number] [Fioricet] 50-300-40 mg capsule 1 cap PO Q4-6H PRN (Reason: migraine headache) Qty: 10 0RF Rx Instructions: May substitute for similar drug approved by his insurance plan multivitamin Tablet 1 tab PO DAILY 0RF acetaminophen 325 mg Tablet 650 mg PO Q6H PRN (Reason: Pain) 0RF amlodipine 5 mg Tablet 5 mg PO DAILY Qty: 30 0RF Protocol: Hold for SBP< HOLD for SBP < : 90 docusate sodium 100 mg Capsule 100 mg PO BID PRN (Reason: Constipation) Qty: 30 0RF magnesium hydroxide [Milk of Magnesia] 400 mg/5 mL Suspension 30 ml PO DAILY PRN (Reason: Constipation) Qty: 355 0RF enoxaparin 80 mg/0.8 mL Syringe 80 mg subcut Q12H 30 Days Qty: 48 0RF sildenafil 100 mg tablet 1 tab PO DAILY 0RF Label Comments: prn? Changed topiramate 25 mg tablet 25 mg PO DAILY 30 Days Qty: 60 0RF Discharge Orders: Discharge Order (Routine); Ordered 08/17/21 Ordered By: Audrey Morgan Activity on Discharge: As tolerated Stand Alone Forms: Patient Portal Discharge page Care Plan Goals: Resolution of headache/neck stiffness Health Concerns: Aseptic meningitis Cortical vein thrombosis Intractable headache Plan of Treatment: Call to schedule follow-up appointment with Neurology Call to schedule follow-up appointment with Hematology, continue to take therapeutic Lovenox as directed Take topiramate daily Can use oxycodone for severe pain. If you need more, follow-up with PCP Assessment: See discharge summary Discharge Date/Time: 08/17/21 14:11
[2021-08-17 18:22] LABS: TS Negative Control Passed; TS Panel A 0; TS Panel B 1; TS Positive Control Passed; TSpotTB Negative (Negative)
== END 2021-08-17 14:11 | disposition home or self-care (01) | DRG 98 ==
LOC: HO.ED 08-12 03:58 → HO.EDOVER 08-12 06:16 → HO.S3 08-12 15:05
PROVIDERS: Hospitalist; Internal Medicine; Admitting Provider Internal Medicine; Emergency Provider Emergency Medicine; PCP Internal Medicine; Visit Provider Physician Assistant Medical
DX: G03.0 Nonpyogenic meningitis (principal); I67.6 Nonpyogenic thrombosis of intracranial venous system; Z20.822 Contact with and (suspected) exposure to COVID-19; Z79.899 Other long term (current) drug therapy
CPT/HCPCS: 36415; 62328; 70450; 80048; 80076; 82945; 84157; 85025; 85027; 85610; 85730; 86481; 87015; 87070; 87205; 87476; 87483; 87635; 89051; 96361; 96374; 99285; J0696; J1170; J1650; J2270

== ENCOUNTER 2022-02-19 13:34 | Outpatient (REF) | payer OTHER, SELFPAY ==
--- NOTE | ~2022-02-19 | MR_ITS ---
EXAMINATION: MRV HEAD WITHOUT AND WITH CONTRAST CLINICAL INFORMATION: Follow-up cortical vein thrombosis. COMPARISON: Head MRV 08/09/2021. TECHNIQUE: 2-D [id number] and postcontrast MRV images were obtained. A postcontrast FSPGR sequence was also obtained. Maximum intensity projections and 3-D reformats were rendered and reviewed. A total of 10 mL Gadavist was intravenously administered. FINDINGS: No filling defects are seen within the left frontal convexity cortical veins. The superior sagittal sinus in addition to the paired transverse and sigmoid sinuses appear patent. The deep system including the straight sinus, vein of Lux, internal cerebral veins, and basal veins of Lulu appear patent. No abnormal brain parenchymal enhancement is seen. There is no mass effect or midline shift. The ventricular caliber appears normal. MR/MR venography head wo/w con IMPRESSION: No residual filling defect within the left frontal convexity cortical veins. No evidence of dural venous sinus thrombosis.
== END 2022-02-19 13:35 | disposition home or self-care (01) ==
LOC: HO.MRI 13:34
PROVIDERS: Visit Provider Internal Medicine Medical Oncology
DX: G08 Intracranial and intraspinal phlebitis and thrombophlebitis (principal)
CPT/HCPCS: 70546; A9585

== ENCOUNTER 2022-08-04 19:40 | Observation (INO) | payer OTHER, SELFPAY ==
--- NOTE | ~2022-08-04 | XR_ITS ---
EXAMINATION: XR CHEST CLINICAL INFORMATION: Cough. COMPARISON: Chest radiograph 08/08/2021. TECHNIQUE: 2 views of the chest were obtained. FINDINGS: No significant abnormality is noted involving the heart, lungs, mediastinum, bony thorax or soft tissues. XR/XR chest 2V IMPRESSION: Unremarkable examination.
--- NOTE | ~2022-08-04 | CT_ITS ---
EXAMINATION: CT ABDOMEN AND PELVIS WITH CONTRAST CLINICAL INFORMATION: Abdominal pain COMPARISON: None TECHNIQUE: Multidetector volumetric images were obtained from the superior aspect of the liver through the pubic symphysis following administration 85 mL of Omnipaque 350 intravenous contrast. Sagittal and coronal reformatted images were obtained on the technologist's workstation. Oral contrast: No This CT examination was performed using dose optimization techniques as appropriate, variously including the following: *Automated exposure control *Adjustment of mA and/or kV according to patient size (this includes techniques or standardized protocols for targeted exams where dose is matched to indication/reason for exam; i.e. extremities or head) *Use of iterative reconstruction technique DLP: 689 mGy-cm FINDINGS: LUNG BASES: Minimal dependent atelectasis. LIVER, GALLBLADDER, AND BILIARY TREE: The demonstrates hypoattenuation suggesting steatosis. There is a suspected hepatic mass near the gallbladder fossa measuring approximately 4.2 cm and with similar attenuation to the surrounding liver; this is of indeterminate etiology. No biliary ductal dilatation is present. The gallbladder is unremarkable with no evidence of radiopaque gallstones, gallbladder wall thickening, or obvious pericholecystic inflammatory changes. PANCREAS: Unremarkable. SPLEEN: Unremarkable. ADRENAL GLANDS: Unremarkable. KIDNEYS AND URETERS: Bilateral nephrograms are symmetric. No hydronephrosis or obstructing calculus identified. Left renal cyst measures up to approximately 3.6 cm; no follow-up recommended. BLADDER: Unremarkable. GASTROINTESTINAL TRACT: No evidence of bowel obstruction or significant wall thickening. The appendix is unremarkable. No free fluid or free air is seen. ABDOMINAL WALL: Small fat-containing right inguinal hernia. LYMPH NODES: Normal. VASCULAR: Unremarkable. PELVIC VISCERA: Unremarkable. OSSEOUS STRUCTURES: There is facet arthropathy at L4-L5. CT/CT abdomen pelvis w IV con IMPRESSION: 1. No acute findings identified in the abdomen/pelvis. 2. Hepatic mass near the gallbladder fossa measuring approximately 4.2 cm, of indeterminate etiology. Further workup with dynamic liver MRI is recommended.
[2022-08-04 20:01] VITALS: BP 159/110; PULSE 133; RESP 20; TEMP 36.9; O2SAT 98; BMI 31.3
--- NOTE | 2022-08-04 20:09 | ECG_ITS ---
Test Reason : SOB Blood Pressure : / mmHG Vent. Rate : 126 BPM Atrial Rate : 126 BPM P-R Int : 134 ms QRS Dur : 082 ms QT Int : 306 ms P-R-T Axes : 042 024 -05 degrees QTc Int : 443 ms Sinus tachycardia T wave abnormality, consider inferior ischemia Abnormal ECG When compared with ECG of 29-JUL-2021 18:07, No significant change was found Referred By: Generic ED Physician Electronically Signed By:WILLIAMS MCKEON MD
[2022-08-04 20:24] LABS: Basophils Percent Auto 0.2 % (0-2); Eosinophils Percent Auto 0.1 % (0-4); Hematocrit 53.8 % (42.0-52.0); Hemoglobin 18.2 g/dl (14.0-18.0); Imm Gran Abs Auto 0.13 X10*3/uL (0.00-0.03); Imm Gran Pct Auto 0.7 % (0.0-0.4); Lymphocytes Absolute Auto 2.2 X10*3/uL (1.2-4.9); Lymphocytes Percent Auto 12.2 % (20-40); MANUAL DIFF FLAG NO; Mean Corpuscular HGB Conc 33.8 g/dl (31.0-36.0); Mean Corpuscular Hemoglobin 27.4 pg (27.0-33.0); Mean Platelet Volume 9.7 fL (9.4-12.4); Monocytes Percent Auto 5.4 % (2-11); Neutrophils Absolute Auto 14.6 x10*3/uL (2.0-8.3); Neutrophils Percent Auto 81.4 % (45-73); Platelet Count 320 X10*3/uL (160-400); Red Blood Count 6.64 X10*6/uL (4.60-5.80); Red Cell Distribution Width 13.1 % (11.0-16.0)
[2022-08-04 20:49] LABS: Alanine Aminotransferase 49 U/L (0-40); Albumin Level 4.8 g/dL (3.5-5.0); Alkaline Phosphatase 81 U/L (39-117); Anion Gap 22 (12-20); Aspartate Amino Transferase 33 U/L (5-37); Bilirubin Total 1.6 mg/dL (0.0-1.0); Blood Urea Nitrogen 16 mg/dL (9-16); Calcium 9.9 mg/dL (8.4-10.2); Carbon Dioxide 12 mmol/L (22-29); Chloride 106 mmol/L (96-108); Creatinine Clr Calc Pharmacy 71.6; Estimated Glomerular Filt Rate 57; Glucose Random 159 mg/dL (60-115); Sodium 135 mmol/L (135-145); Total Protein 8.5 g/dL (6.5-8.0)
[2022-08-04 21:08] LABS: COVID-19 Test Negative (Negative); IDNOW Serial# BCCEAD1C
[2022-08-04 21:09] LABS: IDNOW Serial# 16C4AD1C; Influenza A Negative (Negative); Influenza B2 Negative (Negative)
--- NOTE | 2022-08-04 21:26 | ED.NAVMDI ---
HPI - Nausea/Vomiting/Diarrhea General Chief complaint: Nausea/Vomiting/Diarrhea Stated complaint: vomiting, high bp Time Seen by Provider: 08/04/22 21:12 Source: patient Mode of arrival: ambulatory History of Present Illness HPI Narrative: 47-year-old male began fasting 3 days ago due to zoroastrianism reasons, he denies any fevers or chills or abdominal pain until he started vomiting after midnight. He has not urinated since noon today any is not had his blood pressure medications since yesterday. Related Data Home Medications Medication Instructions Recorded Confirmed acetaminophen 325 mg tablet 650 mg PO Q6H PRN Pain 08/01/21 02/22/22 multivitamin 1 tab PO DAILY 08/01/21 02/22/22 amlodipine 5 mg tablet 1 tab PO DAILY 02/22/22 02/22/22 Previous Rx's Medication Instructions Recorded rivaroxaban 20 mg tablet (Xarelto) 20 mg PO DAILY #60 tabs 09/21/21 Allergies Allergy/AdvReac Type Severity Reaction Status Date / Time No Known Allergies Allergy Verified 08/04/22 20:01 Review of Systems Review of Systems: Pertinent positives and negatives as stated in HPI PMFSH Past Medical History Source: nursing notes reviewed Medical History Aseptic meningitis Kidney stone Surgical History No pertinent past surgical history Family History Family History Other No family history of coronary artery disease Social History Social History Household Members: None Housing: House Are you a primary physician locums urgent care to a significant other at home: No Do you presently have visiting nurse or other home services: No Alcohol intake: never Patient Tobacco Use Status: Never used Tobacco Smoked in Last 30 Days: No Use of substances other than those prescribed or required for medical reasons: No Advance Directives: No Advance Directives Information Provided: No service: No Current occupational status: retired Physical Exam Vital Signs: Vital Signs: Last Vital Signs Temp 98.4 F 08/04/22 22:15 Pulse 98 08/05/22 00:24 Resp 19 08/05/22 00:24 BP 141/95 H 08/05/22 00:24 Pulse Ox 96 08/05/22 00:24 O2 Del Method 08/05/22 00:24 BMI result Body Mass Index 31.3 VITAL SIGNS: Reviewed. GENERAL: Well developed, well nourished, in no acute distress. HEAD: Normocephalic/atraumatic EYES: PERRLA, EOMI EARS: Ext canals without abnormality, TMs non-bulging and non-erythematous NOSE: Nares patent bilateral OROPHARYNX: no oral lesions noted, posterior pharynx clear NECK: Supple, no adenopathy LUNGS: Normal breath sounds. No adventitious sounds or accessory muscle use. SpO2<96> CARDIOVASCULAR: Regular rate and rhythm without noted murmurs ABDOMEN: Soft, non-tender, non-distended with bowel sounds. MUSCULOSKELETAL: No tenderness, deformities, or effusions noted on gross inspection. EXTREMITIES: No cyanosis, clubbing or edema. SKIN: Inspection of the skin reveals no rashes NEUROLOGIC: Alert and oriented x 4. Strength and sensation to light touch were grossly intact x 4. Medications Administered Discontinued Medications Generic Name Dose Route Start Last Admin Trade Name Freq PRN Reason Stop Dose Admin Al Hydroxide/Mg Hydroxide 30 ml 08/04/22 23:13 08/05/22 00:24 Magnesium Hydrox/Alum Hydrox 30 Ml Oral.Susp PO 08/04/22 23:14 30 ml ONCE ONE Administration Amlodipine Besylate 5 mg 08/04/22 22:24 08/04/22 23:03 Amlodipine Besylate 5 Mg Tablet PO 08/04/22 22:25 5 mg ONCE ONE Administration Protocol Lactated Ringer's 3,000 mls @ 999 mls/hr 08/04/22 21:30 08/04/22 21:47 Lr IV 08/05/22 00:30 999 mls/hr .Q3H1M TONI Administration Iohexol 85 ml 08/05/22 01:04 08/05/22 01:04 Iohexol 350 Mg/Ml 100 Ml Infus..Btl IV 08/05/22 01:05 85 ml ONCE ONE Administration Lidocaine HCl 10 ml 08/04/22 23:13 08/05/22 00:24 Lidocaine Hcl Viscous 2 % 15 Ml Solution MUCOUS MEM 08/04/22 23:14 10 ml ONCE ONE Administration Ondansetron HCl 4 mg 08/04/22 21:18 08/04/22 21:43 Ondansetron Hcl 4 Mg/2 Ml Vial IVPUSH 08/04/22 21:19 4 mg ONCE ONE Administration Ondansetron HCl 4 mg 08/04/22 23:13 08/05/22 00:24 Ondansetron Hcl 4 Mg/2 Ml Vial IVPUSH 08/04/22 23:14 4 mg ONCE ONE Administration Medical Decision Making Medical Decision Making MDM Narrative: 47-year-old male with history and clinical presentation consistent with severe dehydration. Labs, IV fluids, anti-nausea medication. I reviewed all investigations and patient's CBC and CMP were repeated. 0023: I suspect infection. Repeat lab work demonstrates that patient still has leukocytosis although afebrile and on CT scan has a liver mass of unclear etiology..... Will give antibiotics after obtaining lactic acid and blood cultures, dehydration is improving,+ hematuria with casts. Differential Diagnosis Please see the discussion above Consult Healthcare Provider Management of the patient was discussed with: Hospitalist [id number]: I discussed case with the inpatient hospitalist who accepts admission. Lab Data Please see the discussion above 08/04/22 20:12 08/04/22 20:12 Labs: Lab Results 08/04/22 08/04/22 08/04/22 Range/Units 20:12 20:12 20:12 WBC 18.0 H (4.8-10.8) X10*3/uL RBC 6.64 H (4.60-5.80) X10*6/uL Hgb 18.2 H (14.0-18.0) g/dl Hct 53.8 H (42.0-52.0) % MCV 81.0 (80.0-98.0) fL MCH 27.4 (27.0-33.0) pg MCHC 33.8 (31.0-36.0) g/dl RDW 13.1 (11.0-16.0) % Plt Count 320 D (160-400) X10*3/uL MPV 9.7 (9.4-12.4) fL Immature Gran % (Auto) 0.7 H (0.0-0.4) % Neut % (Auto) 81.4 H (45-73) % Lymph % (Auto) 12.2 L (20-40) % [place] % (Auto) 5.4 (2-11) % Eos % (Auto) 0.1 (0-4) % Baso % (Auto) 0.2 (0-2) % Lymph # (Auto) 2.2 (1.2-4.9) X10*3/uL [place] # (Auto) 1.0 (0.1-1.2) X10*3/uL Eos # (Auto) 0.0 (0.0-0.4) X10*3/uL Baso # (Auto) 0.0 (0.0-0.2) X10*3/uL Abs Immat Gran (auto) 0.13 H (0.00-0.03) X10*3/uL Absolute Neuts (auto) 14.6 H (2.0-8.3) x10*3/uL Absolute Nucleated RBC 0.000 (0.0-0.012) X10*3/uL Nucleated RBC % (auto) 0.0 (0.0-0.2) /100WBC Sodium 135 (135-145) mmol/L Potassium 5.0 (3.3-5.1) mmol/L Chloride 106 (96-108) mmol/L Carbon Dioxide 12 L (22-29) mmol/L Anion Gap 22 H (12-20) BUN 16 (9-16) mg/dL Creatinine 1.34 (0.5-1.4) mg/dL Estim Creat Clear Calc 71.6 Estimated GFR 57 Random Glucose 159 H (60-115) mg/dL Calcium 9.9 D (8.4-10.2) mg/dL Magnesium 2.2 (1.6-2.6) mg/dL Total Bilirubin 1.6 H (0.0-1.0) mg/dL AST 33 (5-37) U/L ALT 49 H (0-40) U/L Alkaline Phosphatase 81 (39-117) U/L Total Creatine Kinase (38-174) U/L Total Protein 8.5 H (6.5-8.0) g/dL Albumin 4.8 (3.5-5.0) g/dL Lipase 35 (8-78) U/L Urine Color Urine Appearance Urine pH (5.0-9.0) Ur Specific [place] (1.005-1.025) Urine Protein (Neg-Trace) mg/dL Urine Glucose (UA) (Negative) mg/dL Urine Ketones (Negative) mg/dL Urine Blood (Negative) Urine Nitrite (Negative) Ur Leukocyte Esterase (Negative) Urine RBC (0-2) /HPF Urine WBC (0-5) /HPF Ur Squamous Epith Cells (0-2) /HPF Urine Bacteria (None Seen) Hyaline Casts (0-2) /LPF Granular Casts COVID-19 (KANDY) (Negative) COVID-19 Clin Com Influenza Type A (ETTA) Negative (Negative) Influenza Type B (ETTA) Negative (Negative) Influenza A & B Note See Note 08/04/22 08/05/22 08/05/22 Range/Units 20:12 00:23 00:23 WBC 16.3 H (4.8-10.8) X10*3/uL RBC 5.72 (4.60-5.80) X10*6/uL Hgb 15.8 (14.0-18.0) g/dl Hct 46.6 (42.0-52.0) % MCV 81.5 (80.0-98.0) fL MCH 27.6 (27.0-33.0) pg MCHC 33.9 (31.0-36.0) g/dl RDW 13.2 (11.0-16.0) % Plt Count 241 (160-400) X10*3/uL MPV 9.6 (9.4-12.4) fL Immature Gran % (Auto) 0.6 H (0.0-0.4) % Neut % (Auto) 80.9 H (45-73) % Lymph % (Auto) 12.0 L (20-40) % [place] % (Auto) 6.1 (2-11) % Eos % (Auto) 0.2 (0-4) % Baso % (Auto) 0.2 (0-2) % Lymph # (Auto) 2.0 (1.2-4.9) X10*3/uL [place] # (Auto) 1.0 (0.1-1.2) X10*3/uL Eos # (Auto) 0.0 (0.0-0.4) X10*3/uL Baso # (Auto) 0.0 (0.0-0.2) X10*3/uL Abs Immat Gran (auto) 0.09 H (0.00-0.03) X10*3/uL Absolute Neuts (auto) 13.2 H (2.0-8.3) x10*3/uL Absolute Nucleated RBC 0.000 (0.0-0.012) X10*3/uL Nucleated RBC % (auto) 0.0 (0.0-0.2) /100WBC Sodium (135-145) mmol/L Potassium (3.3-5.1) mmol/L Chloride (96-108) mmol/L Carbon Dioxide (22-29) mmol/L Anion Gap (12-20) BUN (9-16) mg/dL Creatinine (0.5-1.4) mg/dL Estim Creat Clear Calc Estimated GFR Random Glucose (60-115) mg/dL Calcium (8.4-10.2) mg/dL Magnesium (1.6-2.6) mg/dL Total Bilirubin (0.0-1.0) mg/dL AST (5-37) U/L ALT (0-40) U/L Alkaline Phosphatase (39-117) U/L Total Creatine Kinase (38-174) U/L Total Protein (6.5-8.0) g/dL Albumin (3.5-5.0) g/dL Lipase (8-78) U/L Urine Color Yellow Urine Appearance Clear Urine pH 5.5 (5.0-9.0) Ur Specific [place] 1.020 (1.005-1.025) Urine Protein 100 (2+) H (Neg-Trace) mg/dL Urine Glucose (UA) Negative (Negative) mg/dL Urine Ketones >=160 (Negative) mg/dL Urine Blood Moderate (2+) H (Negative) Urine Nitrite Negative (Negative) Ur Leukocyte Esterase Negative (Negative) Urine RBC 3-5 H (0-2) /HPF Urine WBC 6-10 H (0-5) /HPF Ur Squamous Epith Cells 0-2 (0-2) /HPF Urine Bacteria None Seen (None Seen) Hyaline Casts >20 (0-2) /LPF Granular Casts Present COVID-19 (KANDY) Negative (Negative) COVID-19 Clin Com See Note Influenza Type A (ETTA) (Negative) Influenza Type B (ETTA) (Negative) Influenza A & B Note 08/05/22 Range/Units 00:23 WBC (4.8-10.8) X10*3/uL RBC (4.60-5.80) X10*6/uL Hgb (14.0-18.0) g/dl Hct (42.0-52.0) % MCV (80.0-98.0) fL MCH (27.0-33.0) pg MCHC (31.0-36.0) g/dl RDW (11.0-16.0) % Plt Count (160-400) X10*3/uL MPV (9.4-12.4) fL Immature Gran % (Auto) (0.0-0.4) % Neut % (Auto) (45-73) % Lymph % (Auto) (20-40) % [place] % (Auto) (2-11) % Eos % (Auto) (0-4) % Baso % (Auto) (0-2) % Lymph # (Auto) (1.2-4.9) X10*3/uL [place] # (Auto) (0.1-1.2) X10*3/uL Eos # (Auto) (0.0-0.4) X10*3/uL Baso # (Auto) (0.0-0.2) X10*3/uL Abs Immat Gran (auto) (0.00-0.03) X10*3/uL Absolute Neuts (auto) (2.0-8.3) x10*3/uL Absolute Nucleated RBC (0.0-0.012) X10*3/uL Nucleated RBC % (auto) (0.0-0.2) /100WBC Sodium 137 (135-145) mmol/L Potassium 4.9 (3.3-5.1) mmol/L Chloride 107 (96-108) mmol/L Carbon Dioxide 16 L (22-29) mmol/L Anion Gap 19 (12-20) BUN 14 (9-16) mg/dL Creatinine 1.05 (0.5-1.4) mg/dL Estim Creat Clear Calc 91.4 Estimated GFR > 60 Random Glucose 119 H (60-115) mg/dL Calcium 8.6 D (8.4-10.2) mg/dL Magnesium (1.6-2.6) mg/dL Total Bilirubin 1.1 H (0.0-1.0) mg/dL AST 26 (5-37) U/L ALT 39 (0-40) U/L Alkaline Phosphatase 63 (39-117) U/L Total Creatine Kinase 291 H (38-174) U/L Total Protein 6.6 (6.5-8.0) g/dL Albumin 3.9 (3.5-5.0) g/dL Lipase (8-78) U/L Urine Color Urine Appearance Urine pH (5.0-9.0) Ur Specific [place] (1.005-1.025) Urine Protein (Neg-Trace) mg/dL Urine Glucose (UA) (Negative) mg/dL Urine Ketones (Negative) mg/dL Urine Blood (Negative) Urine Nitrite (Negative) Ur Leukocyte Esterase (Negative) Urine RBC (0-2) /HPF Urine WBC (0-5) /HPF Ur Squamous Epith Cells (0-2) /HPF Urine Bacteria (None Seen) Hyaline Casts (0-2) /LPF Granular Casts COVID-19 (KANDY) (Negative) COVID-19 Clin Com Influenza Type A (ETTA) (Negative) Influenza Type B (ETTA) (Negative) Influenza A & B Note Independent Interpretation Interpretation: Sinus tachycardia, HR-126, no STEMI, UT/QRS/QTC are within normal limits. There are no changes in comparison to 07/29/2021 Radiology Impression Radiologist Impression: My interpretation is in agreement with radiology's impression of the imaging studies. External Record Review External record reviewed: Outpatient record and Prior outpatient labs Chronic Conditions Patient?s care impacted by: Hypertension Critical Care Time Critical Care Time Critical Care Time: Yes Total Critical Care Time: 45 Attestation: I personally attest to this time spent taking care of the patient. Discharge Plan Discharge Clinical Impression: Liver mass, Sepsis, Dehydration, severe Patient Disposition: Admitted As Inpatient Prescriptions: No Action multivitamin Tablet 1 tab PO DAILY acetaminophen 325 mg Tablet 650 mg PO Q6H PRN (Reason: Pain) Xarelto 20 mg Tablet 20 mg PO DAILY Qty: 60 4RF Rx Instructions: must administer with evening meal amlodipine 5 mg tablet 1 tab PO DAILY
[2022-08-04] MEDS: ondansetron HCL 4 MG/2 ML VIAL IVPUSH (21:43)
[2022-08-04] MEDS: Lactated Ringers 3,000 ML 999 ML IV (21:47)
[2022-08-04 22:13] LABS: Lipase 35 U/L (8-78); Magnesium 2.2 mg/dL (1.6-2.6)
[2022-08-04 22:15] VITALS: BP 167/95; PULSE 90; RESP 16; TEMP 36.9; O2SAT 96
[2022-08-04 23:02] VITALS: BP 143/94; PULSE 100; RESP 22; O2SAT 97
[2022-08-04] MEDS: amLODIPine Besylate 5 MG TABLET PO (23:03)
[2022-08-05 00:24] VITALS: BP 141/95; PULSE 98; RESP 19; O2SAT 96
[2022-08-05] MEDS: Lidocaine HCl Viscous 2 % 15 ML SOLUTION 10 ML MUCOUS MEM (00:24)
[2022-08-05] MEDS: ondansetron HCL 4 MG/2 ML VIAL IVPUSH (00:24)
[2022-08-05] MEDS: Magnesium Hydrox/Alum Hydrox 30 ML ORAL.SUSP PO (00:24)
[2022-08-05 00:29] LABS: Basophils Percent Auto 0.2 % (0-2); Eosinophils Percent Auto 0.2 % (0-4); Hematocrit 46.6 % (42.0-52.0); Hemoglobin 15.8 g/dl (14.0-18.0); Imm Gran Abs Auto 0.09 X10*3/uL (0.00-0.03); Imm Gran Pct Auto 0.6 % (0.0-0.4); MANUAL DIFF FLAG NO; Mean Corpuscular HGB Conc 33.9 g/dl (31.0-36.0); Mean Corpuscular Hemoglobin 27.6 pg (27.0-33.0); Mean Corpuscular Volume 81.5 fL (80.0-98.0); Mean Platelet Volume 9.6 fL (9.4-12.4); Monocytes Percent Auto 6.1 % (2-11); Neutrophils Absolute Auto 13.2 x10*3/uL (2.0-8.3); Neutrophils Percent Auto 80.9 % (45-73); Platelet Count 241 X10*3/uL (160-400); Red Blood Count 5.72 X10*6/uL (4.60-5.80); Red Cell Distribution Width 13.2 % (11.0-16.0); White Blood Count 16.3 X10*3/uL (4.8-10.8)
[2022-08-05 00:30] LABS: Appearance Urine Clear; Color Urine Yellow; Glucose Urine UA Negative (Negative); Leukocyte Esterase Urine Negative (Negative); Nitrite Urine Negative (Negative); PH 5.5 (5.0-9.0); UMIC TRIGGER UACC YES; Urine Blood Moderate (2+) (Negative); Urine Ketones >=160 mg/dL (Negative); Urine Protein 100 (2+) mg/dL (Neg-Trace)
[2022-08-05 00:42] LABS: Bacteria Urine None Seen (None Seen); Granular Casts Urine Present; Hyaline Casts Urine >20 /LPF (0-2); Squamous Epithelial Cell Urine 0-2 /HPF (0-2); UACC Culture Trigger YES
[2022-08-05 00:57] LABS: Alanine Aminotransferase 39 U/L (0-40); Albumin Level 3.9 g/dL (3.5-5.0); Alkaline Phosphatase 63 U/L (39-117); Anion Gap 19 (12-20); Aspartate Amino Transferase 26 U/L (5-37); Bilirubin Total 1.1 mg/dL (0.0-1.0); Blood Urea Nitrogen 14 mg/dL (9-16); Calcium 8.6 mg/dL (8.4-10.2); Carbon Dioxide 16 mmol/L (22-29); Chloride 107 mmol/L (96-108); Creatinine Clr Calc Pharmacy 91.4; Estimated Glomerular Filt Rate > 60; Glucose Random 119 mg/dL (60-115); Potassium 4.9 mmol/L (3.3-5.1); Sodium 137 mmol/L (135-145); Total Protein 6.6 g/dL (6.5-8.0)
[2022-08-05] MEDS: iohexoL 350 MG/ML 100 ML INFUS..BTL 85 ML IV (01:04)
--- NOTE | 2022-08-05 01:57 | MHC.EDTECH ---
pt blood culture 1 st and 2nd drawn and sent to lab ,pt was given another pitcher of ice water .
[2022-08-05 02:56] LABS: Lactic Acid 0.6 mmol/L (0.5-2.0)
--- NOTE | 2022-08-05 03:10 | PM.IMHP ---
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 Patient states he fasted for the last 3 days for methodist reasons. He did not eat anything for the last 3 days and only drank water. Patient states his last bowel movement was 3 days ago and he has had decreased urination on the day of presentation. Patient complains of associated abdominal discomfort and states he could not keep anything down when he tried to break his fast. Has had multiple episodes of nonbloody emesis prior to presentation. He denies fever, chills, chest discomfort, palpitations, shortness of breath. He states took Xarelto for 6-7 months and was told to discontinue by his Heme-Onc In the emergency department, imaging with possible liver mass Review of Systems Constitutional: Constitutional: Reports malaise and Reports poor appetite Cardiovascular: Cardiovascular: Reports no additional cardiovascular complaints Respiratory: Respiratory: Reports no additional respiratory complaints Gastrointestinal: Gastrointestinal: Reports abdominal pain, Reports nausea and Reports vomiting Genitourinary: Genitourinary: Reports no additional male genitourinary complaints Musculoskeletal: Musculoskeletal: Reports no additional musculoskeletal complaints [facility] Medical History Aseptic meningitis Essential hypertension Kidney stone Family History Other No family history of coronary artery disease Surgical History No pertinent past surgical history Social History Household Members: None Housing: House Are you a primary health and social care teacher to a significant other at home: No Do you presently have visiting nurse or other home services: No Alcohol intake: never Patient Tobacco Use Status: Never used Tobacco Smoked in Last 30 Days: No Use of substances other than those prescribed or required for medical reasons: No Advance Directives: No Advance Directives Information Provided: No service: No Current occupational status: retired Meds Allergies Allergy/AdvReac Type Severity Reaction Status Date / Time No Known Allergies Allergy Verified 08/04/22 20:01 Active Medications: Current Medications Pharmacy Consult (Consult Rx Perform Med Rec) 1 each MISCELLANE ONCE PRN PRN Reason: Consult order Home Medications Medication Instructions Recorded Confirmed Last Taken Type acetaminophen 325 mg tablet 650 mg PO Q6H PRN Pain 08/01/21 02/22/22 Unknown History multivitamin 1 tab PO DAILY 08/01/21 02/22/22 1 Day Ago History ~08/11/21 amlodipine 5 mg tablet 1 tab PO DAILY 02/22/22 02/22/22 Unknown History Physical Exam Vital Signs and Narrative: Vital Signs: Last Vital Signs Temp 98.4 F 08/04/22 22:15 Pulse 98 08/05/22 00:24 Resp 19 08/05/22 00:24 BP 141/95 H 08/05/22 00:24 Pulse Ox 96 08/05/22 00:24 O2 Del Method 08/05/22 00:24 BMI result Body Mass Index 31.3 Middle-aged male lying in bed in no distress Neck supple, no JVD Regular rate and rhythm, S1-S2 heard Regular breath sounds bilaterally, no wheezing or crackles appreciated Abdomen with generalized tenderness, no guarding, no rigidity, no rebound tenderness Patient is awake, alert and oriented to self, place, time and person ; no focal motor deficit Psych: Normal mood No pedal edema Results Labs 08/05/22 00:23 08/05/22 00:23 Labs: Laboratory Results - last 24 hr 08/04/22 08/04/22 08/04/22 20:12 20:12 20:12 MCV 81.0 MCH 27.4 MCHC 33.8 RDW 13.1 Plt Count 320 D MPV 9.7 Immature Gran % (Auto) 0.7 H Neut % (Auto) 81.4 H Lymph % (Auto) 12.2 L [place] % (Auto) 5.4 Eos % (Auto) 0.1 Baso % (Auto) 0.2 Lymph # (Auto) 2.2 [place] # (Auto) 1.0 Eos # (Auto) 0.0 Baso # (Auto) 0.0 Abs Immat Gran (auto) 0.13 H Absolute Neuts (auto) 14.6 H Absolute Nucleated RBC 0.000 Nucleated RBC % (auto) 0.0 Anion Gap 22 H Estim Creat Clear Calc 71.6 Estimated GFR 57 Random Glucose 159 H Lactic Acid Calcium 9.9 D Magnesium 2.2 Total Bilirubin 1.6 H AST 33 ALT 49 H Alkaline Phosphatase 81 Total Creatine Kinase Total Protein 8.5 H Albumin 4.8 Lipase 35 Urine Color Urine Appearance Urine pH Ur Specific [place] Urine Protein Urine Glucose (UA) Urine Ketones Urine Blood Urine Nitrite Ur Leukocyte Esterase Urine RBC Urine WBC Ur Squamous Epith Cells Urine Bacteria Hyaline Casts Granular Casts COVID-19 (KANDY) COVID-19 Clin Com Influenza Type A (ETTA) Negative Influenza Type B (ETTA) Negative Influenza A & B Note See Note 08/04/22 08/05/22 08/05/22 20:12 00:23 00:23 MCV 81.5 MCH 27.6 MCHC 33.9 RDW 13.2 Plt Count 241 MPV 9.6 Immature Gran % (Auto) 0.6 H Neut % (Auto) 80.9 H Lymph % (Auto) 12.0 L [place] % (Auto) 6.1 Eos % (Auto) 0.2 Baso % (Auto) 0.2 Lymph # (Auto) 2.0 [place] # (Auto) 1.0 Eos # (Auto) 0.0 Baso # (Auto) 0.0 Abs Immat Gran (auto) 0.09 H Absolute Neuts (auto) 13.2 H Absolute Nucleated RBC 0.000 Nucleated RBC % (auto) 0.0 Anion Gap Estim Creat Clear Calc Estimated GFR Random Glucose Lactic Acid Calcium Magnesium Total Bilirubin AST ALT Alkaline Phosphatase Total Creatine Kinase Total Protein Albumin Lipase Urine Color Yellow Urine Appearance Clear Urine pH 5.5 Ur Specific [place] 1.020 Urine Protein 100 (2+) H Urine Glucose (UA) Negative Urine Ketones >=160 Urine Blood Moderate (2+) H Urine Nitrite Negative Ur Leukocyte Esterase Negative Urine RBC 3-5 H Urine WBC 6-10 H Ur Squamous Epith Cells 0-2 Urine Bacteria None Seen Hyaline Casts >20 Granular Casts Present COVID-19 (KANDY) Negative COVID-19 Clin Com See Note Influenza Type A (ETTA) Influenza Type B (ETTA) Influenza A & B Note 08/05/22 08/05/22 00:23 02:36 MCV MCH MCHC RDW Plt Count MPV Immature Gran % (Auto) Neut % (Auto) Lymph % (Auto) [place] % (Auto) Eos % (Auto) Baso % (Auto) Lymph # (Auto) [place] # (Auto) Eos # (Auto) Baso # (Auto) Abs Immat Gran (auto) Absolute Neuts (auto) Absolute Nucleated RBC Nucleated RBC % (auto) Anion Gap 19 Estim Creat Clear Calc 91.4 Estimated GFR > 60 Random Glucose 119 H Lactic Acid 0.6 Calcium 8.6 D Magnesium Total Bilirubin 1.1 H AST 26 ALT 39 Alkaline Phosphatase 63 Total Creatine Kinase 291 H Total Protein 6.6 Albumin 3.9 Lipase Urine Color Urine Appearance Urine pH Ur Specific [place] Urine Protein Urine Glucose (UA) Urine Ketones Urine Blood Urine Nitrite Ur Leukocyte Esterase Urine RBC Urine WBC Ur Squamous Epith Cells Urine Bacteria Hyaline Casts Granular Casts COVID-19 (KANDY) COVID-19 Clin Com Influenza Type A (ETTA) Influenza Type B (ETTA) Influenza A & B Note Imaging Radiologist's Impressions: Impressions Chest X-Ray 08/05/22 00:52 IMPRESSION: Unremarkable examination. Abdomen/Pelvis CT 08/05/22 01:10 IMPRESSION: 1. No acute findings identified in the abdomen/pelvis. 2. Hepatic mass near the gallbladder fossa measuring approximately 4.2 cm, of indeterminate etiology. Further workup with dynamic liver MRI is recommended. 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 #. Nausea/vomiting/abdominal discomfort: Likely due to starvation ketoacidosis. Resuscitated with IV crystalloids in the ER. Full liquid diet and advance as tolerated. Received IV Zosyn in the ER, defer additional antibiotics for now #. Relative polycythemia: Resolved with fluid resuscitation #. Imaging with 4.2 cm hepatic mass: Obtaining MRI to further delineate anatomy #. Reactive leukocytosis: Low concern for bacterial superinfection #. Essential hypertension: Continue home antihypertensives Med rec pending DVT prophylaxis: Lovenox 40 mg daily Full code Full liquid diet Time Spent With Patient Time: Total time managing care of this patient today ____ minutes. Quality Stroke Does the patient have a stroke diagnosis?: No VTE Prior VTE?: No VTE Risk Level:: Medical - moderate - high VTE Device Contraindication: Treatment Not Indicated VTE Drug Contraindication: N/A - Med Ordered
[2022-08-05] MEDS: Piperacillin Sodium/Tazobactam 3.375 GM in 0.9 % Sodium Chloride 50 ML IV (03:18)
[2022-08-05] MEDS: Acetaminophen 325 MG TABLET 650 MG PO (04:17)
[2022-08-05] MEDS: Enoxaparin Sodium 40 MG/0.4 ML SYRINGE SUBCUT (04:17)
[2022-08-05 05:13] VITALS: BP 125/76; PULSE 91; RESP 18; O2SAT 94
[2022-08-05 06:05] LABS: MANUAL DIFF FLAG NO
[2022-08-05 06:10] LABS: Basophils Percent Auto 0.2 % (0-2); Eosinophils Percent Auto 0.1 % (0-4); Hematocrit 45.4 % (42.0-52.0); Hemoglobin 15.2 g/dl (14.0-18.0); Imm Gran Abs Auto 0.07 X10*3/uL (0.00-0.03); Imm Gran Pct Auto 0.5 % (0.0-0.4); Lymphocytes Absolute Auto 1.9 X10*3/uL (1.2-4.9); Lymphocytes Percent Auto 12.9 % (20-40); Mean Corpuscular HGB Conc 33.5 g/dl (31.0-36.0); Mean Corpuscular Hemoglobin 27.7 pg (27.0-33.0); Mean Corpuscular Volume 82.7 fL (80.0-98.0); Monocytes Absolute Auto 0.9 X10*3/uL (0.1-1.2); Monocytes Percent Auto 6.3 % (2-11); Platelet Count 234 X10*3/uL (160-400); Red Blood Count 5.49 X10*6/uL (4.60-5.80); Red Cell Distribution Width 13.4 % (11.0-16.0); White Blood Count 14.9 X10*3/uL (4.8-10.8)
[2022-08-05 06:24] LABS: Anion Gap 18 (12-20); Blood Urea Nitrogen 11 mg/dL (9-16); Calcium 8.2 mg/dL (8.4-10.2); Carbon Dioxide 15 mmol/L (22-29); Chloride 107 mmol/L (96-108); Estimated Glomerular Filt Rate > 60; Glucose Random 148 mg/dL (60-115); Potassium 4.2 mmol/L (3.3-5.1); Sodium 136 mmol/L (135-145)
[2022-08-05 07:30] VITALS: BP 137/84; PULSE 78; RESP 16; O2SAT 96
--- NOTE | 2022-08-05 08:25 | PHA.MEDREC ---
Pharmacy Consult ? Medication Reconciliation Pharmacy has reviewed the medication reconciliation completed by Laura. There are no remarkable issues for provider's attention. Patient reports he only take amlodipine. Lolis Valero, RafaelD
[2022-08-05] MEDS: amLODIPine Besylate 10 MG TABLET PO (09:32)
[2022-08-05 09:33] VITALS: BP 138/90; PULSE 78; RESP 16
--- NOTE | 2022-08-05 11:48 | PM.DS ---
DS: Providers Provider Date of Service: 08/05/22 Date of admission: 08/05/22 03:10 Date of discharge: 08/05/22 Primary care physician: Unknown Physician Attending physician on admission: Pipo Huff Attending physician on discharge: [facility] Discharging clinician: Daysi Campbell DS: Diagnosis Discharge Diagnosis (1) Liver mass: Status: Acute (2) Dehydration, severe: Status: Acute DS: Summary Hospital Course Hospital Course: HPI on admission by Dr. 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 Patient states he fasted for the last 3 days for scientology reasons.? He did not eat anything for the last 3 days and only drank water.? Patient states his last bowel movement was 3 days ago and he has had decreased urination on the day of presentation.? Patient complains of associated abdominal discomfort and states he could not keep anything down when he tried to break his fast.? Has had multiple episodes of nonbloody emesis prior to presentation.? He denies fever, chills, chest discomfort, palpitations, shortness of breath.? He states took Xarelto for 6-7 months and was told to discontinue by his Heme-Onc In the emergency department, imaging with possible liver mass Hospital course: Pt admitted for nausea/vomiting/abd pain likely due to starvation ketoacidosis. Pt resuscitated with IV fluids and full resolution of nausea and vomiting and abdominal pain. He diet was successfully advanced without any issue and he is tolerating fluids. There was also concern over a 4.2 cm hepatic mass near the gallbladder fossa of indeterminate etiology. However after discussion with the patient, he does recall having prior imaging of a liver mass and old records were obtained from [facility] where a CT of the abdomen/pelvis reviewed with similar findings without any significant change and probable benign etiology. This specific scan also noted no change in comparison to a study from 22/05. He will be discharged home and advised to advanced diet as tolerated and given short course of ondansetron p.r.n. for nausea/vomiting. He will follow up with PCP soon. Status at Discharge Functional status at discharge: independent ambulation Overall status at discharge: patient is progressing back to baseline Time Spent with Patient Time attestation: Total time managing care of this patient today ____ minutes. Discharge coordination time: Greater than 30 minutes Quality: Safe Use of Opioids Does Pt have an Active Cancer Diagnosis on the Problem List?: No Quality: Stroke Does the patient have a stroke diagnosis?: No Physical Exam Vital Signs: Vital Signs: Last Vital Signs Temp 98.4 F 08/04/22 22:15 Pulse 78 08/05/22 09:33 Resp 16 08/05/22 09:33 BP 138/90 H 08/05/22 09:33 Pulse Ox 96 08/05/22 07:30 O2 Del Method 08/05/22 07:30 BMI result Body Mass Index 31.3 Constitutional - Awake and Alert, No apparent distress Eyes - PERRLA, EOMI Cardiovascular - S1S2, RRR, No edema Respiratory - Normal lung expansion, Normal respiratory effort, No respiratory distress, CTA bilaterally Gastrointestinal - NT / ND; +BS; No rebound or guarding Extremities - no calf tenderness bilaterally, no swelling Skin - Warm/Dry Neurological - Alert & oriented x3 Psychological - Appropriate affect DS: Data Data Completed and Pending Completed studies during hospitalization [Text1]: Procedures Drainage of Spinal Canal, Percutaneous Approach, Diagnostic (08/12/21) Fluoroscopy of Spinal Cord (08/12/21) Labs on day of discharge: Laboratory Results - last 24 hr 08/04/22 08/04/22 08/04/22 20:12 20:12 20:12 WBC 18.0 H RBC 6.64 H Hgb 18.2 H Hct 53.8 H MCV 81.0 MCH 27.4 MCHC 33.8 RDW 13.1 Plt Count 320 D MPV 9.7 Immature Gran % (Auto) 0.7 H Neut % (Auto) 81.4 H Lymph % (Auto) 12.2 L Lyon % (Auto) 5.4 Eos % (Auto) 0.1 Baso % (Auto) 0.2 Lymph # (Auto) 2.2 Lyon # (Auto) 1.0 Eos # (Auto) 0.0 Baso # (Auto) 0.0 Abs Immat Gran (auto) 0.13 H Absolute Neuts (auto) 14.6 H Absolute Nucleated RBC 0.000 Nucleated RBC % (auto) 0.0 Sodium 135 Potassium 5.0 Chloride 106 Carbon Dioxide 12 L Anion Gap 22 H BUN 16 Creatinine 1.34 Estim Creat Clear Calc 71.6 Estimated GFR 57 Random Glucose 159 H Lactic Acid Calcium 9.9 D Magnesium 2.2 Total Bilirubin 1.6 H AST 33 ALT 49 H Alkaline Phosphatase 81 Total Creatine Kinase Total Protein 8.5 H Albumin 4.8 Lipase 35 Urine Color Urine Appearance Urine pH Ur Specific [place] Urine Protein Urine Glucose (UA) Urine Ketones Urine Blood Urine Nitrite Ur Leukocyte Esterase Urine RBC Urine WBC Ur Squamous Epith Cells Urine Bacteria Hyaline Casts Granular Casts COVID-19 ([facility]ANDY) COVID-19 Clin Com Influenza Type A (ETTA) Negative Influenza Type B (ETTA) Negative Influenza A & B Note See Note 08/04/22 08/05/22 08/05/22 20:12 00:23 00:23 WBC 16.3 H RBC 5.72 Hgb 15.8 Hct 46.6 MCV 81.5 MCH 27.6 MCHC 33.9 RDW 13.2 Plt Count 241 MPV 9.6 Immature Gran % (Auto) 0.6 H Neut % (Auto) 80.9 H Lymph % (Auto) 12.0 L Lyon % (Auto) 6.1 Eos % (Auto) 0.2 Baso % (Auto) 0.2 Lymph # (Auto) 2.0 Lyon # (Auto) 1.0 Eos # (Auto) 0.0 Baso # (Auto) 0.0 Abs Immat Gran (auto) 0.09 H Absolute Neuts (auto) 13.2 H Absolute Nucleated RBC 0.000 Nucleated RBC % (auto) 0.0 Sodium Potassium Chloride Carbon Dioxide Anion Gap BUN Creatinine Estim Creat Clear Calc Estimated GFR Random Glucose Lactic Acid Calcium Magnesium Total Bilirubin AST ALT Alkaline Phosphatase Total Creatine Kinase Total Protein Albumin Lipase Urine Color Yellow Urine Appearance Clear Urine pH 5.5 Ur Specific [place] 1.020 Urine Protein 100 (2+) H Urine Glucose (UA) Negative Urine Ketones >=160 Urine Blood Moderate (2+) H Urine Nitrite Negative Ur Leukocyte Esterase Negative Urine RBC 3-5 H Urine WBC 6-10 H Ur Squamous Epith Cells 0-2 Urine Bacteria None Seen Hyaline Casts >20 Granular Casts Present COVID-19 (KANDY) Negative COVID-19 Clin Com See Note Influenza Type A (ETTA) Influenza Type B (ETTA) Influenza A & B Note 08/05/22 08/05/22 08/05/22 00:23 02:36 05:40 WBC 14.9 H RBC 5.49 Hgb 15.2 Hct 45.4 MCV 82.7 MCH 27.7 MCHC 33.5 RDW 13.4 Plt Count 234 MPV 10.0 Immature Gran % (Auto) 0.5 H Neut % (Auto) 80.0 H Lymph % (Auto) 12.9 L Lyon % (Auto) 6.3 Eos % (Auto) 0.1 Baso % (Auto) 0.2 Lymph # (Auto) 1.9 Lyon # (Auto) 0.9 Eos # (Auto) 0.0 Baso # (Auto) 0.0 Abs Immat Gran (auto) 0.07 H Absolute Neuts (auto) 12.0 H Absolute Nucleated RBC 0.000 Nucleated RBC % (auto) 0.0 Sodium 137 Potassium 4.9 Chloride 107 Carbon Dioxide 16 L Anion Gap 19 BUN 14 Creatinine 1.05 Estim Creat Clear Calc 91.4 Estimated GFR > 60 Random Glucose 119 H Lactic Acid 0.6 Calcium 8.6 D Magnesium Total Bilirubin 1.1 H AST 26 ALT 39 Alkaline Phosphatase 63 Total Creatine Kinase 291 H Total Protein 6.6 Albumin 3.9 Lipase Urine Color Urine Appearance Urine pH Ur Specific [place] Urine Protein Urine Glucose (UA) Urine Ketones Urine Blood Urine Nitrite Ur Leukocyte Esterase Urine RBC Urine WBC Ur Squamous Epith Cells Urine Bacteria Hyaline Casts Granular Casts COVID-19 (KANDY) COVID-19 Clin Com Influenza Type A (ETTA) Influenza Type B (ETTA) Influenza A & B Note 08/05/22 05:40 WBC RBC Hgb Hct MCV MCH MCHC RDW Plt Count MPV Immature Gran % (Auto) Neut % (Auto) Lymph % (Auto) Lyon % (Auto) Eos % (Auto) Baso % (Auto) Lymph # (Auto) Lyon # (Auto) Eos # (Auto) Baso # (Auto) Abs Immat Gran (auto) Absolute Neuts (auto) Absolute Nucleated RBC Nucleated RBC % (auto) Sodium 136 Potassium 4.2 Chloride 107 Carbon Dioxide 15 L Anion Gap 18 BUN 11 Creatinine 1.01 Estim Creat Clear Calc 95.0 Estimated GFR > 60 Random Glucose 148 H Lactic Acid Calcium 8.2 L Magnesium Total Bilirubin AST ALT Alkaline Phosphatase Total Creatine Kinase Total Protein Albumin Lipase Urine Color Urine Appearance Urine pH Ur Specific [place] Urine Protein Urine Glucose (UA) Urine Ketones Urine Blood Urine Nitrite Ur Leukocyte Esterase Urine RBC Urine WBC Ur Squamous Epith Cells Urine Bacteria Hyaline Casts Granular Casts COVID-19 (KANDY) COVID-19 Clin Com Influenza Type A (ETTA) Influenza Type B (ETTA) Influenza A & B Note Discharge Plan Discharge Anticipated Discharge Date/Time: 08/05/22 11:40 Patient Disposition: Home, Self-Care Referrals: Physician,Unknown J [Primary Care Provider] - 1 Week Discharge Medications: New ondansetron 4 mg tablet,disintegrating 4 mg PO Q8H PRN (Reason: nausea and vomiting) Qty: 14 0RF Continued amlodipine 10 mg tablet 1 tab PO DAILY Discharge Orders: Discharge Order (Routine); Ordered 08/05/22 Ordered By: Daysi Campbell Diet: Advance to usual diet Activity on Discharge: As tolerated Stand Alone Forms: Patient Portal Discharge page Care Plan Goals: see below Health Concerns: [place] and vomiting Liver mass Plan of Treatment: Nausea and vomiting- following 3 day fast -Received IV fluids with improvement in weakness. Vomiting resolved. Diet advanced and tolerated. -Continue gradually advance diet as tolerated -You can take ondansetron up to every 8 hours as needed for nausea and vomiting The liver mass seen on abd CT was reviewed on prior imaging from [facility] dating back to at least 2011 without significant change. No intervention needed at this time. Follow up with PCP. Assessment: See above
--- NOTE | 2022-08-05 12:53 | MHC.CM.PN ---
PT DISCHARGED HOME WITH NO SERVICES PRIOR TO [facility]
[2022-08-05 13:26] VITALS: BP 149/97; PULSE 95; RESP 18; TEMP 36.9; O2SAT 95
== END 2022-08-05 13:23 | disposition home or self-care (01) ==
LOC: HO.ED 08-05 01:54 → HO.EDOVER 08-05 03:21
PROVIDERS: Admitting Provider Student in an Organized Health Care Education/Training Program; Emergency Provider Student in an Organized Health Care Education/Training Program; Visit Provider Physician Assistant
DX: E86.0 Dehydration (principal); R16.0 Hepatomegaly, not elsewhere classified; R19.7 Diarrhea, unspecified; R11.10 Vomiting, unspecified; I10 Essential (primary) hypertension; D72.829 Elevated white blood cell count, unspecified; R82.998 Other abnormal findings in urine
CPT/HCPCS: 36415; 71046; 74177; 80048; 80053; 81001; 82550; 83605; 83690; 83735; 85025; 87040; 87086; 87502; 87635; 93005; 96361; 96365; 96372; 96375; 96376; 99222; 99285; J1650; J2405; J2543; Q9967

== ENCOUNTER 2023-08-13 08:36 | Outpatient (AMB) | payer OTHER, SELFPAY ==
--- NOTE | 2023-08-13 08:53 | AM.OFFWIN_ITS ---
Intake Vital Signs 08/13/23 09:03 Weight 206 lb BP 140/80 H Blood Pressure Location Lt brachial Position Sitting Pulse 95 Pulse Source Pulse Oximeter Temp 97.8 F Temp Source Temporal Artery Scan Pulse Oximetry (%) 96 Oxygen Delivery Method Room Air Intake Visit Reasons: EP Chest Congestion Intake Note: pt is here today for chest congestion started 3 weeks ago Patient Tobacco Use Status: Never used Tobacco Allergies No Known Allergies Allergy (Verified 08/13/23 08:54) Do you need a note to return to daycare/school/sports/work: No HPI HPI Comments History of Present Illness Details Patient presents with chest congestion Dry cough x 2 weeks Saturday + phlegm production He said not resolved No fever or chills + head congestion, sinus pressure No runny nose Denies ear pain or sore throat He has tried cough drops and robitussin dm with minimal relief No hx of asthma, or smoking Covid test last week was negative COUNT INCLUDES THE [facility] Medical History Aseptic meningitis Essential hypertension Kidney stone Surgical History No pertinent past surgical history Family History Other No family history of coronary artery disease Social History Household Members: None Housing: House Are you a primary child care associate teacher to a significant other at home: No Do you presently have visiting nurse or other home services: No Alcohol intake: never Patient Tobacco Use Status: Never used Tobacco service: No Current occupational status: retired Review of Systems Const Denies body aches, Denies chills, Denies fatigue and Denies fever(s) Eyes Denies blurry vision ENT Denies otalgia, Reports nasal congestion, Denies nasal discharge, Reports sinus pressure, Denies sore throat and Denies throat swelling Card Denies chest pain and Reports dyspnea Resp Reports change in phlegm color, Reports chest congestion, Reports cough, Reports dyspnea and Reports wheezing Endo Denies fatigue Aller/Immun Denies throat swelling and Reports wheezing Physical Exam Vital Signs: Last Vital Signs Temp 97.8 F 08/13/23 09:03 Pulse 95 08/13/23 09:03 BP 140/80 H 08/13/23 09:03 Pulse Ox 96 08/13/23 09:03 Oxygen Delivery Method Room Air 08/13/23 09:03 General: Non-toxic, NAD. Speaking full sentences. Skin: Warm dry throughout Eye: EOMI HENT: Airway patent. Uvula midline. No pharyngeal erythema or edema. 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 No rhinorrhea but + sinus maxillary tenderness to palpation bilaterally. Bilateral canals clear. TM non-erythematous, non-bulging. No TM perforation or hemotympanum noted. Respiratory: +wheeze bilaterally. No tachypnea. Cardiac: RRR. No murmur MSK: Full ROM extremities. Neurology: A/O. No aphasia or facial droop. Gait without abnormality Psych: Good mood and affect Assessment & Plan Assessment & Plan (1) Acute bacterial bronchitis: Code(s): J20.8 - Acute bronchitis due to other specified organisms; B96.89 - Other specified bacterial agents as the cause of diseases classified elsewhere Plan: Patient seen and evaluated. +wheeze on exam Sinus pressure/cough x 2 weeks Doxycycline to pharmacy to take with food Proair inhaler prn; discussed use with pt and can also ask pharmacist how to properly use Patient gave verbal understanding and had no additional questions or concerns at time of discharge All questions answered Medications: New albuterol sulfate 90 mcg/actuation 2 puffs inhalation Q6H PRN 8.5 grams 0RF shortness of breath or wheezing doxycycline hyclate 100 mg PO BID 14 caps 0RF Coding Level of Care Code Est Pt Level 3 (77174) Diagnoses Acute bacterial bronchitis J20.8; B96.89
[2023-08-13 09:03] VITALS: BP 140/80; PULSE 95; TEMP 36.6; O2SAT 96
== END 2023-08-13 10:23 | disposition home or self-care (01) ==
PROVIDERS: Visit Provider Physician Assistant
DX: J20.8 Acute bronchitis due to other specified organisms (principal); B96.89 Other specified bacterial agents as the cause of diseases classified elsewhere
CPT/HCPCS: 99213